=== PATIENT | male | born 1935 | race Caucasian/White ===

== ENCOUNTER 2017-11-30 16:18 | Inpatient (IN) | payer OTHER, MEDICARE ==
[~2017-11-30] VITALS: Ht 175.3 cm; Wt 76.0 kg
[~2017-11-30 16:18] MED LIST: ASPI81 PO; ATOR20TA42 PO; CLOP75 PO; ECOT81TA2 PO; FISH1000 PO; LISI10 PO; METO50 PO; [UNRECOGNIZED DRUG - OTHER]
[2017-11-30 16:20] VITALS: BP 213/99; PULSE 78; RESP 16; TEMP 98; O2SAT 98
[2017-11-30 17:22] LABS: AUTOMATED NEUTROPHIL # 4.8 TH/MM3 (1.8-7.7); BASOPHIL % 0.4 % (0.0-2.0); EOSINOPHIL # 0.3 TH/MM3 (0-0.4); EOSINOPHIL % 4.3 % (0.0-4.0); HEMATOCRIT 35.3 % (39.0-51.0); HEMOGLOBIN 12.3 GM/DL (13.0-17.0); LYMPH % 23.9 % (9.0-44.0); LYMPHOCYTE # 1.9 TH/MM3 (1.0-4.8); MEAN CELL VOLUME 90.8 FL (80.0-100.0); MEAN CORPUSCULAR HEMOGLOBIN 31.7 PG (27.0-34.0); MEAN CORPUSCULAR HGB CONC 34.9 % (32.0-36.0); MEAN PLATELET VOLUME 7.7 FL (7.0-11.0); MONO % 9.9 % (0.0-8.0); MONOCYTE # 0.8 TH/MM3 (0-0.9); NEUT % 61.5 % (16.0-70.0); PLATELET COUNT 121 TH/MM3 (150-450); RED BLOOD COUNT 3.89 MIL/MM3 (4.50-5.90); RED CELL DISTRIBUTION WIDTH 14.3 % (11.6-17.2); WHITE BLOOD COUNT 7.9 TH/MM3 (4.0-11.0)
[2017-11-30 17:38] LABS: CALCIUM 8.8 MG/DL (8.5-10.1); CREATININE 1.93 MG/DL (0.60-1.30); MAGNESIUM 2.1 MG/DL (1.5-2.5)
[2017-11-30 17:42] LABS: TROPONIN I 0.22 NG/ML (0.02-0.05)
--- NOTE | 2017-11-30 17:45 | RADRPT ---
EXAM DATE/TIME: 11/30/2017 16:55 [place] COMPARISON: No previous studies available for comparison. INDICATIONS : Chest pain. MEDICAL HISTORY : None. SURGICAL HISTORY : None. ENCOUNTER: Initial ACUITY: 1 day PAIN SCORE: 3/10 LOCATION: Bilateral chest FINDINGS: PA and lateral views of the chest demonstrate the lungs to be symmetrically aerated without evidence of mass, infiltrate or effusion. There is a granuloma in the left lower lung. The cardiomediastinal c ontours are unremarkable. The aorta is tortuous. Osseous structures are intact. CONCLUSION: No acute disease. Rocky Rodriguez MD on November 30, 2017 at 17:43 Board Certified Radiologist. This report was verified electronically.
[2017-11-30 17:59] LABS: PROTHROMBIN TIME - PATIENT 10.6 SEC (9.8-11.6)
--- NOTE | 2017-11-30 18:23 | PD ---
HPI Chief Complaint: Chest Pain Time Seen by Provider: 18:22 Travel History International Travel<30 days: No Contact w/Intl Traveler<30days: No Traveled to known affect area: No PFSH Past Medical History AAA: Yes Anxiety: No Depression: No Cancer: Yes Cardiovascular Problems: Yes (AAA 3 STENTS) High Cholesterol: Yes (NO MEDS) Chemotherapy: Yes (98 ) Cerebrovascular Accident: Yes (neuroimaging report indicates previous CVAs) Endocrine: No Genitourinary: Yes (indwelling orr to illeostomy) Hypertension: Yes Immune Disorder: No Musculoskeletal: No Neurologic: No Psychiatric: No Reproductive: No Respiratory: No Renal Failure: Yes (98) Past Surgical History Abdominal Aneurysm Repair: Yes (STENTS PLACED 10/22/10) Abdominal Surgery: Yes (HERNIA REPAIR) AICD: No Arteriovenous Shunt: No Cardiac Surgery: Yes (STENTS AORTA) Ear Surgery: No Endocrine Surgery: No Eye Surgery: No Genitourinary Surgery: Yes (BLADDER REMOVED) Insulin Pump: No Joint Replacement: No Oral Surgery: No Pacemaker: No Other Surgery: Yes (PENILE IMPLANT) Social History Alcohol Use: Yes Tobacco Use: Yes Substance Use: No Allergies-Medications (Allergen,Severity, Reaction): Coded Allergies: penicillin G (Unverified Allergy, Severe, Swelling, 06/08/17) Reported Meds & Prescriptions Reported Meds & Active Scripts Active Reported Atorvastatin (Atorvastatin Calcium) 20 Mg Tab 20 Mg PO HS Clopidogrel (Clopidogrel Bisulfate) 75 Mg Tab 75 Mg PO DAILY Data Data Last Documented VS Vital Signs Date Time Temp Pulse Resp B/P (MAP) Pulse Ox O2 Delivery O2 Flow Rate FiO2 11/30/17 18:39 65 23 194/96 (128) 98 11/30/17 16:20 98.0 Room Air Orders Orders Electrocardiogram (11/30/17 16:28) Basic Metabolic Panel (Bmp) (11/30/17 16:28) B-Type Natriuretic Peptide (11/30/17 16:28) Ckmb (Isoenzyme) Profile (11/30/17 16:28) Complete Blood Count With Diff (11/30/17 16:28) Magnesium (Mg) (11/30/17 16:28) Prothrombin Time / Inr (Pt) (11/30/17 16:28) Act Partial Throm Time (Ptt) (11/30/17 16:28) Troponin I (11/30/17 16:28) Lipase (11/30/17 16:28) Chest, Pa & Lat (11/30/17 16:28) Ecg Monitoring (11/30/17 18:22) Bilateral Bp Monitoring (11/30/17 18:22) Iv Access Insert/Monitor (11/30/17 18:22) Oximetry (11/30/17 18:22) Aspirin Chew (Aspirin Chew) (11/30/17 18:30) Labs Laboratory Tests Test 11/30/17 16:41 White Blood Count 7.9 TH/MM3 Red Blood Count 3.89 MIL/MM3 Hemoglobin 12.3 GM/DL Hematocrit 35.3 % Mean Corpuscular Volume 90.8 FL Mean Corpuscular Hemoglobin 31.7 PG Mean Corpuscular Hemoglobin Concent 34.9 % Red Cell Distribution Width 14.3 % Platelet Count 121 TH/MM3 Mean Platelet Volume 7.7 FL Neutrophils (%) (Auto) 61.5 % Lymphocytes (%) (Auto) 23.9 % Monocytes (%) (Auto) 9.9 % Eosinophils (%) (Auto) 4.3 % Basophils (%) (Auto) 0.4 % Neutrophils # (Auto) 4.8 TH/MM3 Lymphocytes # (Auto) 1.9 TH/MM3 Monocytes # (Auto) 0.8 TH/MM3 Eosinophils # (Auto) 0.3 TH/MM3 Basophils # (Auto) 0.0 TH/MM3 CBC Comment DIFF FINAL Differential Comment Prothrombin Time 10.6 SEC Prothromb Time International Ratio 1.0 RATIO Activated Partial Thromboplast Time 27.1 SEC Blood Urea Nitrogen 24 MG/DL Creatinine 1.93 MG/DL Random Glucose 94 MG/DL Calcium Level 8.8 MG/DL Magnesium Level 2.1 MG/DL Sodium Level 140 MEQ/L Potassium Level 3.7 MEQ/L Chloride Level 108 MEQ/L Carbon Dioxide Level 26.0 MEQ/L Anion Gap 6 MEQ/L Estimat Glomerular Filtration Rate 34 ML/MIN Total Creatine Kinase 52 U/L Troponin I 0.22 NG/ML B-Type Natriuretic Peptide 120 PG/ML Lipase 172 U/L Sabra Esteban Nov 30, 2017 18:23
[2017-11-30 18:30] VITALS: BP 200/93
[2017-11-30] MEDS ORDERED: ASPIRIN 81 MG CHEW TAB PO ONE (18:30)
[2017-11-30] MEDS ORDERED: CLOP75TA PO (18:38)
[2017-11-30] MEDS ORDERED: ATOR20TA15 PO (18:38)
[2017-11-30 18:39] VITALS: BP 194/96; PULSE 65; RESP 23; O2SAT 98
--- NOTE | 2017-11-30 18:55 | PD ---
Physical Exam Date Seen by Provider: Nov 30, 2017 Time Seen by Provider: 18:51 Narrative The patient is a 82-year-old male who is initially evaluated by the mid-level provider. Please refer to the initial history, physical, diagnostic evaluation, and treatment modality plan. Data Data Last Documented VS Vital Signs Date Time Temp Pulse Resp B/P (MAP) Pulse Ox O2 Delivery O2 Flow Rate FiO2 11/30/17 18:39 65 23 194/96 (128) 98 11/30/17 16:20 98.0 Room Air Orders Orders Electrocardiogram (11/30/17 16:28) Basic Metabolic Panel (Bmp) (11/30/17 16:28) B-Type Natriuretic Peptide (11/30/17 16:28) Ckmb (Isoenzyme) Profile (11/30/17 16:28) Complete Blood Count With Diff (11/30/17 16:28) Magnesium (Mg) (11/30/17 16:28) Prothrombin Time / Inr (Pt) (11/30/17 16:28) Act Partial Throm Time (Ptt) (11/30/17 16:28) Troponin I (11/30/17 16:28) Lipase (11/30/17 16:28) Chest, Pa & Lat (11/30/17 16:28) Ecg Monitoring (11/30/17 18:22) Bilateral Bp Monitoring (11/30/17 18:22) Iv Access Insert/Monitor (11/30/17 18:22) Oximetry (11/30/17 18:22) Aspirin Chew (Aspirin Chew) (11/30/17 18:30) Heparin Inj (Heparin Inj) (11/30/17 19:15) Heparin Inj (Heparin Inj) (12/01/17 01:15) Heparin Inj (Heparin Inj) (12/01/17 01:15) Heparin-D5w 25,000 U/250 Ml (Heparin-D5w (11/30/17 19:15) Act Partial Throm Time (Ptt) (11/30/17 19:09) Cbc No Diff, Includes Plts (11/30/17 19:09) Cbc No Diff, Includes Plts (12/03/17 06:00) Act Partial Throm Time (Ptt) (12/01/17 02:09) Occult Blood (Hemoccult) Stool (11/30/17 19:09) Nitroglycerin 2% Oint (Nitroglycerin 2% (11/30/17 19:15) Consult Cardiology (11/30/17 ) Labs Laboratory Tests Test 11/30/17 16:41 White Blood Count 7.9 TH/MM3 Red Blood Count 3.89 MIL/MM3 Hemoglobin 12.3 GM/DL Hematocrit 35.3 % Mean Corpuscular Volume 90.8 FL Mean Corpuscular Hemoglobin 31.7 PG Mean Corpuscular Hemoglobin Concent 34.9 % Red Cell Distribution Width 14.3 % Platelet Count 121 TH/MM3 Mean Platelet Volume 7.7 FL Neutrophils (%) (Auto) 61.5 % Lymphocytes (%) (Auto) 23.9 % Monocytes (%) (Auto) 9.9 % Eosinophils (%) (Auto) 4.3 % Basophils (%) (Auto) 0.4 % Neutrophils # (Auto) 4.8 TH/MM3 Lymphocytes # (Auto) 1.9 TH/MM3 Monocytes # (Auto) 0.8 TH/MM3 Eosinophils # (Auto) 0.3 TH/MM3 Basophils # (Auto) 0.0 TH/MM3 CBC Comment DIFF FINAL Differential Comment Prothrombin Time 10.6 SEC Prothromb Time International Ratio 1.0 RATIO Activated Partial Thromboplast Time 27.1 SEC Blood Urea Nitrogen 24 MG/DL Creatinine 1.93 MG/DL Random Glucose 94 MG/DL Calcium Level 8.8 MG/DL Magnesium Level 2.1 MG/DL Sodium Level 140 MEQ/L Potassium Level 3.7 MEQ/L Chloride Level 108 MEQ/L Carbon Dioxide Level 26.0 MEQ/L Anion Gap 6 MEQ/L Estimat Glomerular Filtration Rate 34 ML/MIN Total Creatine Kinase 52 U/L Troponin I 0.22 NG/ML B-Type Natriuretic Peptide 120 PG/ML Lipase 172 U/L [facility] Medical Record Reviewed: Yes Supervised Visit with LALITO: Yes Interpretation(s) EKG reveals normal sinus rhythm with a rate of 77. Q wave noted in lead [address] T-wave changes noted in V5 and V6. Voltage criteria for left ventricular hypertrophy. Differential Diagnosis Last Impressions Chest X-Ray 11/30/17 8094 Signed Impressions: Service Date/Time: Thursday, November 30, 2017 16:55 - CONCLUSION: No acute disease. Rocky Rodriguez MD Laboratory Tests Test 2/6/18 16:41 White Blood Count 7.9 TH/MM3 Red Blood Count 3.89 MIL/MM3 Hemoglobin 12.3 GM/DL Hematocrit 35.3 % Mean Corpuscular Volume 90.8 FL Mean Corpuscular Hemoglobin 31.7 PG Mean Corpuscular Hemoglobin Concent 34.9 % Red Cell Distribution Width 14.3 % Platelet Count 121 TH/MM3 Mean Platelet Volume 7.7 FL Neutrophils (%) (Auto) 61.5 % Lymphocytes (%) (Auto) 23.9 % Monocytes (%) (Auto) 9.9 % Eosinophils (%) (Auto) 4.3 % Basophils (%) (Auto) 0.4 % Neutrophils # (Auto) 4.8 TH/MM3 Lymphocytes # (Auto) 1.9 TH/MM3 Monocytes # (Auto) 0.8 TH/MM3 Eosinophils # (Auto) 0.3 TH/MM3 Basophils # (Auto) 0.0 TH/MM3 CBC Comment DIFF FINAL Differential Comment Prothrombin Time 10.6 SEC Prothromb Time International Ratio 1.0 RATIO Activated Partial Thromboplast Time 27.1 SEC Blood Urea Nitrogen 24 MG/DL Creatinine 1.93 MG/DL Random Glucose 94 MG/DL Calcium Level 8.8 MG/DL Magnesium Level 2.1 MG/DL Sodium Level 140 MEQ/L Potassium Level 3.7 MEQ/L Chloride Level 108 MEQ/L Carbon Dioxide Level 26.0 MEQ/L Anion Gap 6 MEQ/L Estimat Glomerular Filtration Rate 34 ML/MIN Total Creatine Kinase 52 U/L Troponin I 0.22 NG/ML B-Type Natriuretic Peptide 120 PG/ML Lipase 172 U/L Narrative Course I, Dr. Andersen, have reviewed the advance practice practitioner's documentation and am in agreement, met with the patient face to face, made the diagnosis, and the medical decision making was done by me. *My assessment and Findings: The patient is a 82-year-old male was initially evaluated by the mid-level provider. Please refer to the initial history, physical, diagnostic evaluation, treatment modality plan. The patient has a several day history of substernal dull chest pain that is nonradiating and is occasionally associated with chronic shortness of breath. He denies any nausea , vomiting, or diaphoresis. Symptoms are intermittent, nonexertional. The patient was seen and his international logistics analyst office earlier today, Dr. Mayen, who referred him to the emergency department for further evaluation. The patient does take a statin daily as well as Plavix. He does have a history of hypertension, hyperlipidemia, CAD with previous stent placement, and tobacco use. He denies any history of diabetes. Troponin was elevated 0.22, creatinine is elevated 1.93. The chest pain had dissipated by the time he was evaluated in [facility]. A call was placed the on-call international logistics analyst for Dr. Mayen, Dr. Becerril. We will discuss with Dr. Becerril in regards to heparin drip , heparin drip, and admission to cardiac telemetry with a consult to cardiology. I discussed the patient with Dr. Becerril at 7:10 PM who recommends heparin drip, patient was also placed on Nitropaste. A consult was placed to Dr. Mayen. The patient will be admitted. Physician Communication Physician Communication [facility] were paged for admission. Diagnosis Primary Impression: Non-ST elevation PR (NSTEMI) Additional Impression: CKD (chronic kidney disease) stage 3, GFR 30-59 ml/min Admitting Information Admitting Physician Requests: Admit Condition: Stable Saeid Andersen MD Nov 30, 2017 18:55
--- NOTE | 2017-11-30 18:57 | PD ---
HPI Chief Complaint: Chest Pain Time Seen by Provider: 18:22 Travel History International Travel<30 days: No Contact w/Intl Traveler<30days: No Traveled to known affect area: No History of Present Illness HPI 82-year-old male with PMH of HTN, CAD status post stenting, CKD and AAA presents to the ED for evaluation of 1 week history of intermittent substernal chest pain. Onset at rest. Described as pressure, maximally 6/10, 3/10 minimally. Lasting variable amounts of time, resolving spontaneously. No radiation. Patient denies associated shortness of breath, nausea, vomiting, diaphoresis, palpitations. Patient states that he had an similar episode while in his comparative sociology professor, Dr. Mayen's, office today. He was sent to the ED. States that he had episode in the waiting room. Currently pain-free. Patient is on Plavix. He takes a baby aspirin daily. He is a 50+ year smoker. PFSH Past Medical History AAA: Yes Anxiety: No Depression: No Cancer: Yes Cardiovascular Problems: Yes (AAA 3 STENTS) High Cholesterol: Yes (NO MEDS) Chemotherapy: Yes (98 ) Cerebrovascular Accident: Yes (neuroimaging report indicates previous CVAs) Endocrine: No Genitourinary: Yes (indwelling orr to illeostomy) Hypertension: Yes Immune Disorder: No Musculoskeletal: No Neurologic: No Psychiatric: No Reproductive: No Respiratory: No Renal Failure: Yes (98) Past Surgical History Abdominal Aneurysm Repair: Yes (STENTS PLACED 10/22/10) Abdominal Surgery: Yes (HERNIA REPAIR) AICD: No Arteriovenous Shunt: No Cardiac Surgery: Yes (STENTS AORTA) Ear Surgery: No Endocrine Surgery: No Eye Surgery: No Genitourinary Surgery: Yes (BLADDER REMOVED) Insulin Pump: No Joint Replacement: No Oral Surgery: No Pacemaker: No Other Surgery: Yes (PENILE IMPLANT) Social History Alcohol Use: Yes Tobacco Use: Yes Substance Use: No Allergies-Medications (Allergen,Severity, Reaction): Coded Allergies: penicillin G (Unverified Allergy, Severe, Swelling, 06/08/17) Reported Meds & Prescriptions Reported Meds & Active Scripts Active Reported Atorvastatin (Atorvastatin Calcium) 20 Mg Tab 20 Mg PO HS Clopidogrel (Clopidogrel Bisulfate) 75 Mg Tab 75 Mg PO DAILY Review of Systems Except as stated in HPI: all other systems reviewed are Neg Physical Exam Narrative GENERAL: Thin, well-developed white male in no acute distress. SKIN: Focused skin assessment warm/dry. HEAD: Normocephalic. EYES: No scleral icterus. No injection or drainage. NECK: Supple, trachea midline. No JVD or lymphadenopathy. CARDIOVASCULAR: Regular rate and rhythm without murmurs, gallops, or rubs. CHEST: Nontender throughout without deformity or crepitus. No retractions. RESPIRATORY: Breath sounds clear and equal bilaterally. No accessory muscle use. GASTROINTESTINAL: Abdomen soft, non-tender, nondistended. Active bowel sounds. MUSCULOSKELETAL: No cyanosis, or edema. BACK: Nontender without obvious deformity. No CVA tenderness. Data Data Last Documented VS Vital Signs Date Time Temp Pulse Resp B/P (MAP) Pulse Ox O2 Delivery O2 Flow Rate FiO2 11/30/17 18:39 65 23 194/96 (128) 98 11/30/17 16:20 98.0 Room Air Orders Orders Electrocardiogram (11/30/17 16:28) Basic Metabolic Panel (Bmp) (11/30/17 16:28) B-Type Natriuretic Peptide (11/30/17 16:28) Ckmb (Isoenzyme) Profile (11/30/17 16:28) Complete Blood Count With Diff (11/30/17 16:28) Magnesium (Mg) (11/30/17 16:28) Prothrombin Time / Inr (Pt) (11/30/17 16:28) Act Partial Throm Time (Ptt) (11/30/17 16:28) Troponin I (11/30/17 16:28) Lipase (11/30/17 16:28) Chest, Pa & Lat (11/30/17 16:28) Ecg Monitoring (11/30/17 18:22) Bilateral Bp Monitoring (11/30/17 18:22) Iv Access Insert/Monitor (11/30/17 18:22) Oximetry (11/30/17 18:22) Aspirin Chew (Aspirin Chew) (11/30/17 18:30) Heparin Inj (Heparin Inj) (11/30/17 19:15) Heparin Inj (Heparin Inj) (12/01/17 01:15) Heparin Inj (Heparin Inj) (12/01/17 01:15) Heparin-D5w 25,000 U/250 Ml (Heparin-D5w (11/30/17 19:15) Act Partial Throm Time (Ptt) (11/30/17 19:09) Cbc No Diff, Includes Plts (11/30/17 19:09) Cbc No Diff, Includes Plts (12/03/17 06:00) Act Partial Throm Time (Ptt) (12/01/17 02:09) Occult Blood (Hemoccult) Stool (11/30/17 19:09) Nitroglycerin 2% Oint (Nitroglycerin 2% (11/30/17 19:15) Consult Cardiology (11/30/17 ) Admit Order (Ed Use Only) (11/30/17 19:28) Labs Laboratory Tests Test 11/30/17 16:41 White Blood Count 7.9 TH/MM3 Red Blood Count 3.89 MIL/MM3 Hemoglobin 12.3 GM/DL Hematocrit 35.3 % Mean Corpuscular Volume 90.8 FL Mean Corpuscular Hemoglobin 31.7 PG Mean Corpuscular Hemoglobin Concent 34.9 % Red Cell Distribution Width 14.3 % Platelet Count 121 TH/MM3 Mean Platelet Volume 7.7 FL Neutrophils (%) (Auto) 61.5 % Lymphocytes (%) (Auto) 23.9 % Monocytes (%) (Auto) 9.9 % Eosinophils (%) (Auto) 4.3 % Basophils (%) (Auto) 0.4 % Neutrophils # (Auto) 4.8 TH/MM3 Lymphocytes # (Auto) 1.9 TH/MM3 Monocytes # (Auto) 0.8 TH/MM3 Eosinophils # (Auto) 0.3 TH/MM3 Basophils # (Auto) 0.0 TH/MM3 CBC Comment DIFF FINAL Differential Comment Prothrombin Time 10.6 SEC Prothromb Time International Ratio 1.0 RATIO Activated Partial Thromboplast Time 27.1 SEC Blood Urea Nitrogen 24 MG/DL Creatinine 1.93 MG/DL Random Glucose 94 MG/DL Calcium Level 8.8 MG/DL Magnesium Level 2.1 MG/DL Sodium Level 140 MEQ/L Potassium Level 3.7 MEQ/L Chloride Level 108 MEQ/L Carbon Dioxide Level 26.0 MEQ/L Anion Gap 6 MEQ/L Estimat Glomerular Filtration Rate 34 ML/MIN Total Creatine Kinase 52 U/L Troponin I 0.22 NG/ML B-Type Natriuretic Peptide 120 PG/ML Lipase 172 U/L [facility] Medical Decision Making Medical Screen Exam Complete: Yes Emergency Medical Condition: Yes Differential Diagnosis NSTEMI versus unstable angina versus chest pain versus other Narrative Course 82-year-old male with PMH of HTN, CAD status post stenting, CKD and AAA presents to the ED for evaluation of 1 week history of intermittent substernal chest pain. Onset at rest. Described as pressure, maximally 6/10, 3/10 minimally. Currently pain-free. Patient is on Plavix. He takes a baby aspirin daily. He is a 50+ year smoker. BP 213/99 on presentation. On exam the patient is in no distress. Chest CTAB. Abdomen soft and nontender. No lower extremity edema. EKG: Rate 77, sinus rhythm. [place] interval 187, QRS 97, QTC 400 ms. LVH, Q waves in AVF, ST depression in V5 V6. Similar to previous EKG. CXR: No acute disease per radiology read. Troponin: 0.22. BNP: 120 CBC: WBC 7.9, hemoglobin 12.3. Hematocrit 35.3. Platelets 121. INR 1.0. CMP: BUN 24, creatinine 1.93. GFR 34. Patient was administered aspirin by mouth. I discussed admission with the patient who is agreeable. Dr. Andersen spoke with Dr. Becerril who recommends Nitropaste, heparin drip and admission to the [facility]. Consult place with cardiology. I spoke with Dr. Sosa who agrees to accept the patient to the medicine service. Please see medicine and cardiology notes for disposition. Sabra Esteban Nov 30, 2017 18:57
[2017-11-30] MEDS ORDERED: HEPARIN-D5W 25,000 U/250 ML 250 ML IV PRN (19:15)
[2017-11-30] MEDS ORDERED: NITROGLYCERIN 2% OINT 1 GM PACKET TOPICAL ONE (19:15)
[2017-11-30] MEDS ORDERED: HEPARIN SODIUM - IV 10,000 UNITS/10 ML VIAL IV ONE (19:15)
[2017-11-30 19:42] VITALS: BP 183/99; PULSE 68; RESP 16; O2SAT 99
[2017-11-30] MEDS ORDERED: BISACODYL 10 MG SUPP RECTAL PRN (20:30)
[2017-11-30] MEDS ORDERED: ONDANSETRON HCL 4 MG/2 ML VIAL IVP PRN (20:30)
[2017-11-30] MEDS ORDERED: NALOXONE HCL 0.4 MG/ML AMP IV PUSH PRN (20:30)
[2017-11-30] MEDS ORDERED: MAGNESIUM HYDROXIDE SUSP 30 ML CUP PO PRN (20:30)
[2017-11-30] MEDS ORDERED: ACETAMINOPHEN 325 MG TAB PO PRN ×2 (20:30)
[2017-11-30] MEDS ORDERED: ACETAMINOPHEN/HYDROcodone 325 MG/5 MG TAB PO PRN (20:30)
[2017-11-30] MEDS ORDERED: MORPHINE SULFATE 2 MG/ML INJ IV PUSH PRN (20:30)
[2017-11-30] MEDS ORDERED: SODIUM CHLORIDE 0.9% FLUSH 10 ML FLUSH IV FLUSH PRN (20:30)
[2017-11-30] MEDS ORDERED: SENNOSIDES 8.6 MG TAB PO PRN (20:30)
[2017-11-30] MEDS ORDERED: NITROGLYCERIN 0.4 MG SL 25 TABS/BTL SL PRN (21:45)
[2017-11-30] MEDS ORDERED: hydrALAZINE HCL 20 MG/ML VIAL IV PUSH PRN (21:45)
[2017-11-30 22:00] VITALS: BP 191/98; PULSE 70; PULSE 72; RESP 16; TEMP 98; O2SAT 98
[2017-11-30] MEDS: SODIUM CHLORIDE 0.9% FLUSH 10 ML FLUSH IV FLUSH SCH (22:41)
[2017-11-30] MEDS: ATORVASTATIN 20 MG TAB PO SCH (22:41)
--- NOTE | 2017-11-30 23:18 | HHI.HP ---
[facility] Unknown Admission Diagnosis NSTEMI Diagnoses: Travel History International Travel<30 Days: No Contact w/Intl Traveler <30 Da: No Traveled to Known Affected Are: No History of Present Illness 82-year-old male with a past medical history significant for coronary artery disease and hyperlipidemia presents to the emergency department complaining of chest pain and shortness of breath. The patient reports that he's been short of breath for approximately 2 weeks. He also states he has a chest pain/ pressure that started last week and has been intermittent. He denies any lower extremity edema. Denies fever/chills. He is status post stent placement approximately 4 years ago. Review of Systems Except as stated in HPI: all other systems reviewed are Neg Past Family Social History Past Medical History Hyperlipidemia Coronary artery disease Past Surgical History Cardiac catheterization with stent placement approximately 4 years ago Reported Medications Reported Meds & Active Scripts Active Reported Atorvastatin (Atorvastatin Calcium) 20 Mg Tab 20 Mg PO HS Clopidogrel (Clopidogrel Bisulfate) 75 Mg Tab 75 Mg PO DAILY Allergies: Coded Allergies: penicillin G (Unverified Allergy, Severe, Swelling, 06/08/17) Family History Patient does not know Social History Smokes proximally one pack per day. Denies alcohol, illicit drugs. Physical Exam Vital Signs Vital Signs Date Time Temp Pulse Resp B/P (MAP) Pulse Ox O2 Delivery O2 Flow Rate FiO2 11/30/17 21:27 11/30/17 19:42 68 16 99 Room Air 11/30/17 19:42 68 16 183/99 (127) 99 Room Air 11/30/17 18:39 65 23 194/96 (128) 98 11/30/17 18:30 200/93 (128) 11/30/17 16:20 98.0 78 16 213/99 (137) 98 Room Air Physical Exam GENERAL: male lying in bed SKIN: No rashes, ecchymoses or lesions. Cool and dry. HEAD: Atraumatic. Normocephalic. No temporal or scalp tenderness. EYES: Pupils equal round and reactive. Extraocular motions intact. No scleral icterus. No injection or drainage. ENT: Nose without bleeding, purulent drainage or septal hematoma. Throat without erythema, tonsillar hypertrophy or exudate. Uvula midline. Airway patent. NECK: Trachea midline. No JVD or lymphadenopathy. Supple, nontender, no meningeal signs. CARDIOVASCULAR: Regular rate and rhythm without murmurs, gallops, or rubs. RESPIRATORY: Clear to auscultation. Breath sounds equal bilaterally. No wheezes , rales, or rhonchi. GASTROINTESTINAL: Abdomen soft, non-tender, nondistended. No hepato-splenomegaly , or palpable masses. No guarding. MUSCULOSKELETAL: Extremities without clubbing, cyanosis, or edema. No joint tenderness, effusion, or edema noted. No calf tenderness. NEUROLOGICAL: Awake and alert. Cranial nerves II through XII intact. Motor and sensory grossly within normal limits. Normal speech. Laboratory Laboratory Tests Test 11/30/17 16:41 White Blood Count 7.9 Red Blood Count 3.89 Hemoglobin 12.3 Hematocrit 35.3 Mean Corpuscular Volume 90.8 Mean Corpuscular Hemoglobin 31.7 Mean Corpuscular Hemoglobin Concent 34.9 Red Cell Distribution Width 14.3 Platelet Count 121 Mean Platelet Volume 7.7 Neutrophils (%) (Auto) 61.5 Lymphocytes (%) (Auto) 23.9 Monocytes (%) (Auto) 9.9 Eosinophils (%) (Auto) 4.3 Basophils (%) (Auto) 0.4 Neutrophils # (Auto) 4.8 Lymphocytes # (Auto) 1.9 Monocytes # (Auto) 0.8 Eosinophils # (Auto) 0.3 Basophils # (Auto) 0.0 CBC Comment DIFF FINAL Differential Comment Prothrombin Time 10.6 Prothromb Time International Ratio 1.0 Activated Partial Thromboplast Time 27.1 Blood Urea Nitrogen 24 Creatinine 1.93 Random Glucose 94 Calcium Level 8.8 Magnesium Level 2.1 Sodium Level 140 Potassium Level 3.7 Chloride Level 108 Carbon Dioxide Level 26.0 Anion Gap 6 Estimat Glomerular Filtration Rate 34 Total Creatine Kinase 52 Troponin I 0.22 B-Type Natriuretic Peptide 120 Lipase 172 Result Diagram: 11/30/17 1641 11/30/17 1641 Caprini VTE Risk Assessment Caprini VTE Risk Assessment: Mod/High Risk (score >= 2) Caprini Risk Assessment Model Point Value = 1 Point Value = 2 Point Value = 3 Point Value = 5 Age 41-60 Minor surgery BMI > 25 kg/m2 Swollen legs Varicose veins or History of unexplained or recurrent spontaneous Oral contraceptives or hormone replacement Sepsis (< 1 month) Serious lung disease, including pneumonia (< 1 month) Abnormal pulmonary function Acute myocardial infarction Congestive heart failure (< 1 month) History of inflammatory bowel disease Medical patient at bed rest Age 61-74 Arthroscopic surgery Major open surgery (> 45 min) Laparoscopic surgery (> 45 min) Malignancy Confined to bed (> 72 hours) Immobilizing plaster cast Central venous access Age >= 75 History of VTE Family history of VTE Factor V Leiden Prothrombin [id number] Lupus anticoagulant Anticardiolipin antibodies Elevated serum homocysteine Heparin-induced thrombocytopenia Other congenital or acquired thrombophilia Stroke (< 1 month) Elective arthroplasty Hip, pelvis, or leg fracture Acute spinal cord injury (< 1 month) Prophylaxis Regimen Total Risk Factor Score Risk Level Prophylaxis Regimen 0-1 Low Early ambulation 2 Moderate Order ONE of the following: *Sequential Compression Device (SCD) *Heparin 5000 units SQ BID 3-4 Higher Order ONE of the following medications: *Heparin 5000 units SQ TID *Enoxaparin/Lovenox 40 mg SQ daily (WT < 150 kg, CrCl > 30 mL/min) *Enoxaparin/Lovenox 30 mg SQ daily (WT < 150 kg, CrCl > 10-29 mL/min) *Enoxaparin/Lovenox 30 mg SQ BID (WT < 150 kg, CrCl > 30 mL/min) AND/OR *Sequential Compression Device (SCD) 5 or more Highest Order ONE of the following medications: *Heparin 5000 units SQ TID (Preferred with Epidurals) *Enoxaparin/Lovenox 40 mg SQ daily (WT < 150 kg, CrCl > 30 mL/min) *Enoxaparin/Lovenox 30 mg SQ daily (WT < 150 kg, CrCl > 10-29 mL/min) *Enoxaparin/Lovenox 30 mg SQ BID (WT < 150 kg, CrCl > 30 mL/min) AND *Sequential Compression Device (SCD) Assessment and Plan Assessment and Plan Assessment/plan: 1. NSTEMI Patient with elevated troponin to 0.22 EKG significant for NSR with LVH, no ST segment elevations or depressions, personally reviewed Heparin drip Nitroglycerin Morphine Status post aspirin ACS rule out pending; serial troponin/EKGs Cardiology consulted, appreciate recommendations 2. CAD Status post stent placement Continue Plavix 3. Hyperlipidemia Continue home statin 4. SP Creatinine 1.93, baseline from 2013 - 1.39 Likely chronic component Monitor renal function FEN Nothing by mouth Electrolytes: Monitor and replete when necessary Heparin drip Physician Certification 2 Midnight Certification Type: Admission for Inpatient Services Order for Inpatient Services The services are ordered in accordance with Medicare regulations or non- Medicare payer requirements, as applicable. In the case of services not specified as inpatient-only, they are appropriately provided as inpatient services in accordance with the 2-midnight benchmark. Estimated LOS (days): 2 2 days is the estimated time the patient will need to remain in the hospital, assuming treatment plan goals are met and no additional complications. Post-Hospital Plan: Not yet determined Loretta Sosa MD Nov 30, 2017 23:18
[2017-11-30 23:25] VITALS: BP 140/68; PULSE 70; PULSE 71; RESP 16; TEMP 98; O2SAT 98
[2017-12-01] VITALS (25 sets, daily range): BP systolic 138–158; BP diastolic 71–85; PULSE 63–86; RESP 15–18; TEMP 98.1–98.7; O2SAT 94–100
[2017-12-01] MEDS ORDERED: HEPARIN SODIUM - IV 10,000 UNITS/10 ML VIAL IV PRN ×2 (01:15)
[2017-12-01 02:05] LABS: TROPONIN I 0.22 NG/ML (0.02-0.05)
[2017-12-01 04:48] LABS: AUTOMATED NEUTROPHIL # 3.3 TH/MM3 (1.8-7.7); BASOPHIL % 0.6 % (0.0-2.0); EOSINOPHIL # 0.4 TH/MM3 (0-0.4); EOSINOPHIL % 7.1 % (0.0-4.0); HEMATOCRIT 31.5 % (39.0-51.0); HEMOGLOBIN 11.1 GM/DL (13.0-17.0); LYMPHOCYTE # 1.5 TH/MM3 (1.0-4.8); MEAN CELL VOLUME 90.1 FL (80.0-100.0); MEAN CORPUSCULAR HEMOGLOBIN 31.8 PG (27.0-34.0); MEAN CORPUSCULAR HGB CONC 35.3 % (32.0-36.0); MEAN PLATELET VOLUME 7.9 FL (7.0-11.0); MONO % 9.2 % (0.0-8.0); MONOCYTE # 0.5 TH/MM3 (0-0.9); NEUT % 57.1 % (16.0-70.0); PLATELET COUNT 105 TH/MM3 (150-450); RED BLOOD COUNT 3.49 MIL/MM3 (4.50-5.90); RED CELL DISTRIBUTION WIDTH 13.9 % (11.6-17.2); WHITE BLOOD COUNT 5.8 TH/MM3 (4.0-11.0)
[2017-12-01 05:09] LABS: ALBUMIN 3.2 GM/DL (3.4-5.0); AST (GOT) 13 U/L (15-37); BICARBONATE 23.7 MEQ/L (21.0-32.0); BLOOD UREA NITROGEN 23 MG/DL (7-18); CALCIUM 8.9 MG/DL (8.5-10.1); CHLORIDE 109 MEQ/L (98-107); CREATININE 1.68 MG/DL (0.60-1.30); GLOMERULAR FILTRATION RATE 39 ML/MIN (>89); GLUCOSE,RANDOM 100 MG/DL (74-106); SODIUM (NA) 141 MEQ/L (136-145)
[2017-12-01 05:11] LABS: ALT (GPT) 15 U/L (12-78)
[2017-12-01 05:14] LABS: ALKALINE PHOSPHATASE 94 U/L (45-117); TOTAL BILIRUBIN ADULT 0.3 MG/DL (0.2-1.0); TROPONIN I 0.22 NG/ML (0.02-0.05)
[2017-12-01] MEDS: SODIUM CHLORIDE 0.9% FLUSH 10 ML FLUSH IV FLUSH SCH ×2 (09:00→21:05)
[2017-12-01] MEDS: CLOPIDOGREL 75 MG TAB PO SCH (10:05)
--- NOTE | 2017-12-01 10:57 | EKG ---
Date Performed: 12/01/2017 Time Performed: 05:30:18 PTAGE: 82 years EKG: Sinus rhythm Inferior infarct - age undetermined Possible anterior infarct - age undetermined Abnormal ECG PREVIOUS TRACING : 11/30/2017 23.22 DOCTOR: Curtis Leal Interpretating Date/Time 12/01/2017 10:53:57
--- NOTE | 2017-12-01 11:05 | EKG ---
Date Performed: 11/30/2017 Time Performed: 23:22:20 PTAGE: 82 years EKG: Sinus rhythm Inferior infarct - age undetermined Possible anteroseptal infarct - age undetermined Abnormal ECG PREVIOUS TRACING : 11/30/2017 16.37 DOCTOR: Curtis Leal Interpretating Date/Time 12/01/2017 11:00:10
--- NOTE | 2017-12-01 12:57 | EKG ---
Date Performed: 11/30/2017 Time Performed: 16:37:20 PTAGE: 82 years EKG: Sinus rhythm LEFT VENTRICULAR HYPERTROPHY AND ST-T CHANGE INFERIOR MYOCARDIAL INFARCTION ABNORMAL ECG PREVIOUS TRACING : 08/26/2013 12.06 DOCTOR: Curtis Leal Interpretating Date/Time 12/01/2017 12:50:39
--- NOTE | 2017-12-01 14:36 | MB ---
cc: YAS STEPHENSON DO DATE OF CONSULTATION 12/01/2017 REASON FOR CONSULTATION NSTEMI. HISTORY OF PRESENT ILLNESS Tony Lopes is a pleasant 82-year-old male who presented to [facility] Emergency Room on November 30, 2017 due to chest pain and shortness of breath. He states that this has been bothering him for about 2 weeks. The chest pain has been somewhat pressure-like in the center of his chest and has been on and off and somewhat intermittent. He denies other symptoms. In seeing him this morning he is currently without chest pain or shortness of breath. PAST MEDICAL HISTORY 1. Hyperlipidemia. 2. Coronary artery disease. PAST SURGICAL HISTORY Cardiac catheterization with stents placed approximately 4 years ago (unknown coronary anatomy, procedure done at [facility] [place]). ALLERGIES PENICILLIN. MEDICATIONS 1. Plavix 75 mg daily. 2. Lipitor 20 mg every night. FAMILY HISTORY The patient is unsure of his family history. SOCIAL HISTORY The patient smokes approximately one pack per day, denies alcohol or drug abuse. REVIEW OF SYSTEMS 14-systems were reviewed including osteopathic. Pertinent positives and negatives as above, otherwise negative. PHYSICAL EXAMINATION VITAL SIGNS: Temperature 98.2, heart rate 78, blood pressure 142/82, respirations 18, pulse ox 98% on room air. GENERAL: In general the patient appears well, in no acute distress, awake, alert and oriented x3. Extraocular muscles intact. Mucous membranes moist. NECK: Supple. No JVD at 45 degrees. No carotid bruits heard bilaterally. Carotid upstroke is brisk in nature. HEART: Regular rate and rhythm. Positive first and second heart sounds with no known murmurs, gallops or rubs. LUNGS: Clear to auscultation bilaterally. No wheezes, rales or rhonchi. ABDOMEN: Soft, nontender, nondistended. No organomegaly noted. EXTREMITIES: No clubbing, cyanosis or edema. Femoral and distal pulses intact bilaterally. NEUROLOGIC: No focal deficits. SKIN: Warm, dry and intact. MUSCULOSKELETAL: Osteopathically no kyphoscoliosis, lordosis or paraspinal tender points. LABORATORY Hemoglobin 11.1, hematocrit 31.5, platelets 105. Potassium 3.6, BUN 23, creatinine 1.68. Troponin stable at 0.22. ELECTROCARDIOGRAM Electrocardiogram (December 01, 2017 at 0530): Sinus rhythm, inferior infarct age undetermined, poor R-wave progression, possible age undetermined anterior infarct. IMPRESSION 1. NSTEMI. 2. Chest pain possibly due to coronary insufficiency. 3. History of coronary artery disease. 4. History of hyperlipidemia. 5. Acute kidney injury. RECOMMENDATIONS 1. Mr. Lopes presented with chest pain and elevated troponin. I discussed with him the consideration of an ischemic evaluation, most likely cardiac catheterization. He states at this time he would not want any procedures. 2. I did discuss with him the consideration of a stress test but if positive would most likely need a catheterization and once again he said that he lived for 82 years and does not want any further procedures. 3. Will attempt to treat him medically as best as possible continuing him on his Lipitor and Plavix while adding aspirin and Imdur therapy. 4. He states that he wants to go home today even though I asked that he possibly stay until tomorrow as he did have elevated troponins but he is pretty set on going home today. Will see this afternoon, if doing better and planning on only treating him medically it is possible that he may be able to go home with the understanding that either way he has some risk involved. Thank you for allowing me to see Tony Lopes. If there are any questions please do not hesitate to call. Yas Stephenson DO VGP/BT /1:02 PM /2:18 PM
--- NOTE | 2017-12-01 19:02 | HHI.PR ---
Subjective Remarks Patient denies any further chest pain or shortness breath. Elevated troponins are suggestive of myocardial infarction. The patient has declined cardiac catheter and stress testing. He did have some apparently associated acute kidney injury. Recommended further cardiac monitoring and monitoring of blood work tomorrow morning. Objective Vital Signs Date Time Temp Pulse Resp B/P (MAP) Pulse Ox O2 Delivery O2 Flow Rate FiO2 12/01/17 18:00 86 12/01/17 17:00 82 12/01/17 16:00 80 12/01/17 16:00 98.3 78 18 138/78 (98) 98 12/01/17 15:00 78 12/01/17 14:00 82 12/01/17 13:00 77 12/01/17 12:00 84 12/01/17 12:00 98.2 78 18 142/82 (102) 98 12/01/17 11:00 80 12/01/17 10:00 77 12/01/17 09:00 73 12/01/17 08:00 98.1 78 18 154/85 (108) 98 12/01/17 08:00 75 12/01/17 07:00 68 12/01/17 06:00 65 12/01/17 05:00 66 12/01/17 04:05 67 12/01/17 03:25 98.2 69 15 138/77 (97) 98 12/01/17 03:00 63 12/01/17 02:00 64 12/01/17 01:00 74 12/01/17 00:00 74 11/30/17 23:25 98.0 71 16 140/68 (92) 98 11/30/17 23:25 70 11/30/17 22:00 70 11/30/17 22:00 98.0 72 16 191/98 (129) 98 11/30/17 21:27 11/30/17 19:42 68 16 99 Room Air 11/30/17 19:42 68 16 183/99 (127) 99 Room Air I/O 11/30/17 11/30/17 11/30/17 12/01/17 12/01/17 12/01/17 07:00 15:00 23:00 07:00 15:00 23:00 Intake Total 100 ml 30 ml 780 ml Output Total 300 ml 650 ml Balance -200 ml 30 ml 130 ml Intake Oral 100 ml 750 ml IV Total 30 ml 30 ml Output Urine Total 300 ml 650 ml # Bowel Movements 0 1 Result Diagram: 12/01/1742612/01/17426 Objective Remarks GENERAL: NAD, A&Ox3 HEAD: Normocephalic. NECK: Supple, trachea midline. No lymphadenopathy. EYES: No scleral icterus. No injection or drainage. CARDIOVASCULAR: Regular rate and rhythm without murmurs, gallops, or rubs. RESPIRATORY: Breath sounds equal bilaterally. No accessory muscle use. GASTROINTESTINAL: Abdomen soft, non-tender, nondistended. MUSCULOSKELETAL: No cyanosis, or edema. SKIN: Warm and dry. NEURO: No focal neurological deficitis. A/P Problem List: (1) Non-ST elevation AR (NSTEMI) ICD Code: I21.4 - Non-ST elevation (NSTEMI) myocardial infarction Status: Acute Assessment and Plan 82-year-old male admitted secondary to NSTEMI NSTEMI Coronary artery disease Cardiology has suffered a heart catheter or stress testing and patient declines both options Continue to monitor on telemetry Continue to monitor for recurrence of symptoms Nitroglycerin as needed Continue Plavix Acute kidney injury Follow renal function Hyperlipidemia Continue statin DVT prophylaxis Heparin Discharge planning Discharge will be considered tomorrow if no evidence of arrhythmias and renal function continues to improve. Eligio Carpenter MD Dec 01, 2017 19:02
[2017-12-01] MEDS: ATORVASTATIN 20 MG TAB PO SCH (21:05)
[2017-12-02] VITALS (10 sets, daily range): BP systolic 135–138; BP diastolic 69–78; PULSE 68–78; RESP 17–18; TEMP 98.1–98.5; O2SAT 94–98
[2017-12-02 04:32] LABS: ALBUMIN 3.2 GM/DL (3.4-5.0); AST (GOT) 16 U/L (15-37); BICARBONATE 24.3 MEQ/L (21.0-32.0); BLOOD UREA NITROGEN 24 MG/DL (7-18); CALCIUM 9.1 MG/DL (8.5-10.1); CHLORIDE 110 MEQ/L (98-107); CREATININE 1.91 MG/DL (0.60-1.30); GLOMERULAR FILTRATION RATE 34 ML/MIN (>89); GLUCOSE,RANDOM 98 MG/DL (74-106); SODIUM (NA) 141 MEQ/L (136-145)
[2017-12-02 04:34] LABS: ALT (GPT) 14 U/L (12-78)
[2017-12-02 04:35] LABS: ALKALINE PHOSPHATASE 97 U/L (45-117); TOTAL BILIRUBIN ADULT 0.4 MG/DL (0.2-1.0); TOTAL PROTEIN 7.2 GM/DL (6.4-8.2)
[2017-12-02] MEDS ORDERED: ISOSORBIDE MONONITRATE 30 MG TAB PO SCH (07:00)
[2017-12-02] MEDS ORDERED: ASPI81 CHEW (08:48)
[2017-12-02] MEDS ORDERED: CARV3.125 PO (08:48)
[2017-12-02] MEDS ORDERED: ISOS30TA3 PO (08:48)
[2017-12-02] MEDS ORDERED: NITR0.4S SL (08:48)
[2017-12-02] MEDS ORDERED: ASPIRIN 81 MG CHEW TAB CHEW SCH (09:00)
[2017-12-02] MEDS: SODIUM CHLORIDE 0.9% FLUSH 10 ML FLUSH IV FLUSH SCH (09:00)
[2017-12-02] MEDS: CLOPIDOGREL 75 MG TAB PO SCH (09:07)
--- NOTE | 2017-12-02 09:55 | HHI.DS ---
Discharge Summary Admission Date Nov 30, 2017 at 19:30 Discharge Date: Dec 02, 2017 Admitting Diagnosis NSTEMI (1) Non-ST elevation ME (NSTEMI) ICD Code: I21.4 - Non-ST elevation (NSTEMI) myocardial infarction Status: Acute Procedures none Brief History - From Admission 82-year-old male with a past medical history significant for coronary artery disease and hyperlipidemia presents to the emergency department complaining of chest pain and shortness of breath. The patient reports that he's been short of breath for approximately 2 weeks. He also states he has a chest pain/ pressure that started last week and has been intermittent. He denies any lower extremity edema. Denies fever/chills. He is status post stent placement approximately 4 years ago. CBC/BMP: 12/01/17 0427 12/02/17 0340 Significant Findings Laboratory Tests Test 11/30/17 16:41 12/01/17 01:20 12/01/17 01:45 12/01/17 04:27 Red Blood Count 3.89 MIL/MM3 (4.50-5.90) 3.49 MIL/MM3 (4.50-5.90) Hemoglobin 12.3 GM/DL (13.0-17.0) 11.1 GM/DL (13.0-17.0) Hematocrit 35.3 % (39.0-51.0) 31.5 % (39.0-51.0) Platelet Count 121 TH/MM3 (150-450) 105 TH/MM3 (150-450) Monocytes (%) (Auto) 9.9 % (0.0-8.0) 9.2 % (0.0-8.0) Eosinophils (%) (Auto) 4.3 % (0.0-4.0) 7.1 % (0.0-4.0) Blood Urea Nitrogen 24 MG/DL (7-18) 23 MG/DL (7-18) Creatinine 1.93 MG/DL (0.60-1.30) 1.68 MG/DL (0.60-1.30) Chloride Level 108 MEQ/L (98-107) 109 MEQ/L (98-107) Estimat Glomerular Filtration Rate 34 ML/MIN (>89) 39 ML/MIN (>89) Troponin I 0.22 NG/ML (0.02-0.05) 0.22 NG/ML (0.02-0.05) 0.22 NG/ML (0.02-0.05) B-Type Natriuretic Peptide 120 PG/ML (0-100) Activated Partial Thromboplast Time 47.4 SEC (24.3-30.1) Albumin 3.2 GM/DL (3.4-5.0) Aspartate Amino Transf (AST/SGOT) 13 U/L (15-37) Test 12/01/17 11:28 12/02/17 03:40 Activated Partial Thromboplast Time 39.9 SEC (24.3-30.1) Blood Urea Nitrogen 24 MG/DL (7-18) Creatinine 1.91 MG/DL (0.60-1.30) Albumin 3.2 GM/DL (3.4-5.0) Chloride Level 110 MEQ/L (98-107) Estimat Glomerular Filtration Rate 34 ML/MIN (>89) Hospital Course Mr. Lopes is an 82 year old male. He was admitted secondary to NSTEMI. Heart cath and Stress Testing were offered as investigative and treatment measures; the patient declined these options. He has had no arrhythmias. Symptoms are fully resolved. 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 He wishes to discharge and is medically stable for discharge home today. Pt Condition on Discharge: Stable Discharge Disposition: Discharge Home Discharge Time: <= 30 minutes Discharge Instructions DIET: Follow Instructions for: As Tolerated, No Restrictions Activities you can perform: Regular-No Restrictions Follow up Referrals: Cardiology - 2 Weeks PCP Follow-up - 2 Weeks New Medications: Carvedilol (Coreg) 3.125 Mg Tab 3.125 MG PO BID for Cardiac Disease, #60 TAB 0 Refills Aspirin (Tgt Aspirin) 81 Mg Chw 81 MG CHEW DAILY for Blood Clot Prevention, #30 EA Isosorbide Mononitrate ER (Isosorbide Mononitrate ER) 30 Mg Osmar 30 MG PO DAILY for Chest Pain, #30 TAB Nitroglycerin SL (Nitrostat SL) 0.4 Mg Subl 0.4 MG SL Q5M PRN for CHEST PAIN, #60 TAB Continued Medications: Atorvastatin (Atorvastatin) 20 Mg Tab 20 MG PO HS for Cholesterol Management, #30 TAB 0 Refills Clopidogrel (Clopidogrel) 75 Mg Tab 75 MG PO DAILY for Blood Clot Prevention, #30 TAB 0 Refills Eligio Carpenter MD Dec 02, 2017 09:55
--- NOTE | 2017-12-02 11:39 | PD.CARD.PN ---
Subjective Subjective Remarks Patient was seen this morning, late entry No events overnight No chest pain/SOB Objective Medications Current Medications Aspirin (Aspirin Chew) 162 mg ONCE ONCE PO Last administered on 11/30/17at 18:45 ; Start 11/30/17 at 18:30; Stop 11/30/17 at 18:31; Status DC Heparin Sodium (Porcine) (Heparin Inj) 5,000 units ONCE ONCE IV Last administered on 11/30/17at 19:45; Start 11/30/17 at 19:15; Stop 11/30/17 at 19:17; Status DC Heparin Sodium (Porcine) (Heparin Inj) 5,000 units UNSCH PRN IV APTT LESS THAN 25; Start 12/01/17 at 01:15; Stop 12/01/17 at 13:10; Status DC Heparin Sodium (Porcine) (Heparin Inj) 2,500 units UNSCH PRN IV APTT 25 TO 39; Start 12/01/17 at 01:15; Stop 12/01/17 at 13:10; Status DC Heparin Sodium/ Dextrose 250 ml @ 9 mls/hr TITRATE PRN IV Coagulation Management Last administered on 11/30/17at 19:49; Start 11/30/17 at 19:15; Stop 12/01/17 at 13:10; Status DC Nitroglycerin (Nitroglycerin 2% Oint) 1 inch ONCE ONCE TOPICAL Last administered on 11/30/17at 19:45; Start 11/30/17 at 19:15; Stop 12/01/17 at 13:10; Status DC Sodium Chloride (NS Flush) 2 ml UNSCH PRN IV FLUSH FLUSH AFTER USING IV ACCESS ; Start 11/30/17 at 20:30; Stop 12/02/17 at 11:10; Status DC Sodium Chloride (NS Flush) 2 ml BID IV FLUSH Last administered on 12/02/17at 09: 00; Start 11/30/17 at 21:00; Stop 12/02/17 at 11:10; Status DC Acetaminophen (Tylenol) 650 mg Q4H PRN PO TEMP > 100.4; Start 11/30/17 at 20:30 ; Status UNV Ondansetron HCl (Zofran Inj) 4 mg Q6H PRN IVP NAUSEA OR VOMITING; Start at 20:30; Stop 12/02/17 at 11:10; Status DC Naloxone HCl (Narcan Inj) 0.4 mg UNSCH PRN IV PUSH SEE LABEL COMMENTS; Start at 20:30; Stop 12/02/17 at 11:10; Status DC Magnesium Hydroxide (Milk Of Magnesia Liq) 30 ml Q12H PRN PO Mild constipation ; Start 11/30/17 at 20:30; Stop 12/02/17 at 11:10; Status DC Sennosides (Senokot) 17.2 mg Q12H PRN PO Moderate constipation; Start 11/30/17 at 20:30; Stop 12/02/17 at 11:10; Status DC Bisacodyl (Dulcolax Supp) 10 mg DAILY PRN RECTAL SEVERE CONSITIPATION; Start at 20:30; Stop 12/02/17 at 11:10; Status DC Acetaminophen (Tylenol) 650 mg Q6H PRN PO PAIN SCALE 1 TO 2/LIMON/Fever 101; Start 11/30/17 at 20:30; Stop 12/02/17 at 11:10; Status DC Acetaminophen/ Hydrocodone Bitart ([place] 5-325 Mg) 1 tab Q4H PRN PO PAIN SCALE 3 TO 5; Start 11/30/17 at 20:30; Stop 12/02/17 at 11:10; Status DC Morphine Sulfate (Morphine Inj) 3 mg Q3H PRN IV PUSH Pain 6-10; Start 11/30/17 at 20:30; Stop 12/02/17 at 11:10; Status DC Atorvastatin Calcium (Lipitor) 20 mg HS PO Last administered on 12/01/17at 21:05 ; Start 11/30/17 at 21:00; Stop 12/02/17 at 11:10; Status DC Clopidogrel Bisulfate (Plavix) 75 mg DAILY PO Last administered on 12/02/17at 09: 07; Start 12/01/17 at 09:00; Stop 12/02/17 at 11:10; Status DC Nitroglycerin (Nitrostat Sl) 0.4 mg Q5M PRN SL CHEST PAIN; Start 11/30/17 at 21: 45; Stop 12/02/17 at 11:10; Status DC Hydralazine HCl (Apresoline Inj) 10 mg Q6H PRN IV PUSH SEE LABEL COMMENTS Last administered on 11/30/17at 22:41; Start 11/30/17 at 21:45; Stop 12/02/17 at 11:10; Status DC Isosorbide Mononitrate (Imdur) 30 mg DAILY@07 PO Last administered on 12/02/17at 06:05; Start 12/02/17 at 07:00; Stop 12/02/17 at 11:10; Status DC Aspirin (Aspirin Chew) 81 mg DAILY CHEW Last administered on 12/02/17at 09:08; Start 12/02/17 at 09:00; Stop 12/02/17 at 11:10; Status DC Vital Signs / I&O Vital Signs Date Time Temp Pulse Resp B/P (MAP) Pulse Ox O2 Delivery O2 Flow Rate FiO2 12/02/17 08:00 77 12/02/17 08:00 98.1 77 18 138/78 (98) 98 12/02/17 07:00 74 12/02/17 06:27 69 12/02/17 05:12 70 12/02/17 04:01 72 12/02/17 03:59 98.5 78 17 135/69 (91) 94 12/02/17 03:18 75 12/02/17 02:09 68 12/02/17 01:53 68 12/02/17 00:23 72 12/01/17 23:44 98.4 81 16 145/71 (95) 100 12/01/17 23:44 71 12/01/17 22:14 75 12/01/17 21:46 76 12/01/17 20:20 82 12/01/17 19:28 98.7 81 17 158/75 (102) 94 12/01/17 19:28 80 12/01/17 18:00 86 12/01/17 17:00 82 12/01/17 16:00 80 12/01/17 16:00 98.3 78 18 138/78 (98) 98 12/01/17 15:00 78 12/01/17 14:00 82 12/01/17 13:00 77 12/01/17 12:00 84 12/01/17 12:00 98.2 78 18 142/82 (102) 98 I/O 12/01/17 12/01/17 12/01/17 12/02/17 12/02/17 12/02/17 07:00 15:00 23:00 07:00 15:00 23:00 Intake Total 100 ml 30 ml 780 ml 360 ml 700 ml Output Total 300 ml 650 ml 900 ml 620 ml Balance -200 ml 30 ml 130 ml -540 ml 80 ml Intake Oral 100 ml 750 ml 360 ml 700 ml IV Total 30 ml 30 ml Output Urine Total 300 ml 650 ml 900 ml 620 ml # Bowel Movements 0 1 0 Physical Exam GENERAL: NAD, AAOx3 SKIN: Warm and dry. HEAD: Atraumatic. Normocephalic. EYES: Pupils equal and round. No scleral icterus. No injection or drainage. ENT: No nasal bleeding or discharge. Mucous membranes pink and moist. NECK: Trachea midline. No JVD. CARDIOVASCULAR: Regular rate and rhythm. RESPIRATORY: No accessory muscle use. Clear to auscultation. Breath sounds equal bilaterally. GASTROINTESTINAL: Abdomen soft, non-tender, nondistended. Hepatic and splenic margins not palpable. MUSCULOSKELETAL: Extremities without clubbing, cyanosis, or edema. No obvious deformities. NEUROLOGICAL: Awake and alert. No obvious cranial nerve deficits. Motor grossly within normal limits. Five out of 5 muscle strength in the arms and legs. Normal speech. PSYCHIATRIC: Appropriate mood and affect; insight and judgment normal. Laboratory Laboratory Tests Test 12/02/17 03:40 Activated Partial Thromboplast Time 26.4 SEC Blood Urea Nitrogen 24 MG/DL Creatinine 1.91 MG/DL Random Glucose 98 MG/DL Total Protein 7.2 GM/DL Albumin 3.2 GM/DL Calcium Level 9.1 MG/DL Alkaline Phosphatase 97 U/L Aspartate Amino Transf (AST/SGOT) 16 U/L Alanine Aminotransferase (ALT/SGPT) 14 U/L Total Bilirubin 0.4 MG/DL Sodium Level 141 MEQ/L Potassium Level 3.7 MEQ/L Chloride Level 110 MEQ/L Carbon Dioxide Level 24.3 MEQ/L Anion Gap 7 MEQ/L Estimat Glomerular Filtration Rate 34 ML/MIN Assessment and Plan Problem List: (1) Non-ST elevation TN (NSTEMI) ICD Codes: I21.4 - Non-ST elevation (NSTEMI) myocardial infarction Status: Acute (2) Atypical chest pain Status: Chronic (3) Hypertension Nos (4) Tobacco Use Disorder Status: Chronic (5) CKD (chronic kidney disease) stage 3, GFR 30-59 ml/min ICD Codes: N18.3 - CKD (chronic kidney disease) stage 3, GFR 30-59 ml/min Status: Chronic Assessment and Plan 1) Chest pain concerning for coronary insufficiency with an elevated troponin 2) Discussed consideration of ischemic evaluation Patient does not want an ischemic evaluation Wants to continue on medical management 3) Con't Lipitor/Plavix, add ASA and Imdur 4) Cardiovascularly stable for discharge today Acosta Alcala DO Dec 02, 2017 11:39
== END 2017-12-02 11:09 | disposition home or self-care (01) | DRG 281 ==
LOC: NEPC 16:18 → NEDA 19:30 → HCPC 21:45
PROVIDERS: ADMIT Hospitalist; ATTEND Hospitalist
DX: I21.4 Non-ST elevation (NSTEMI) myocardial infarction (principal); N17.9 Acute kidney failure, unspecified; E78.5 Hyperlipidemia, unspecified; I25.10 Atherosclerotic heart disease of native coronary artery without angina pectoris; Z95.5 Presence of coronary angioplasty implant and graft; Z79.02 Long term (current) use of antithrombotics/antiplatelets; Z79.82 Long term (current) use of aspirin; F17.210 Nicotine dependence, cigarettes, uncomplicated; I12.9 Hypertensive chronic kidney disease with stage 1 through stage 4 chronic kidney disease, or unspecified chronic kidney disease; N18.3 Chronic kidney disease, stage 3 (moderate); Z86.73 Personal history of transient ischemic attack (TIA), and cerebral infarction without residual deficits; Z90.6 Acquired absence of other parts of urinary tract
CPT/HCPCS: 71046; 76937; 80048; 80053; 82550; 83690; 83735; 83880; 84484; 85025; 85610; 85730; 93005; 99285; J0360; J1644

== ENCOUNTER 2018-02-16 18:31 | Inpatient (IN) | payer OTHER, MEDICARE ==
[~2018-02-16] VITALS: Ht 177.8 cm; Wt 69.7 kg
[~2018-02-16 18:31] MED LIST changes: +ASPI81 CHEW; -ASPI81 PO; +ATOR20TA15 PO; -ATOR20TA42 PO; +CARV3.125 PO; -CLOP75 PO; +CLOP75TA PO; -ECOT81TA2 PO; -FISH1000 PO; +ISOS30TA3 PO; -LISI10 PO; -METO50 PO; +NITR0.4S SL; -[UNRECOGNIZED DRUG - OTHER]
[2018-02-16 20:30] VITALS: BP 143/98; PULSE 103; RESP 16; TEMP 98.9; O2SAT 97
[2018-02-16] MEDS ORDERED: FERR325T18 PO (20:40)
[2018-02-16] MEDS ORDERED: VITA10002 PO (20:40)
[2018-02-16] MEDS ORDERED: VITA100018 PO (20:40)
[2018-02-16] MEDS ORDERED: SODIUM CHLORID 0.9% 500 ML INJ 500 ML IV ONE (20:45)
[2018-02-16] MEDS ORDERED: TRIA0.022 TOPICAL (20:55)
[2018-02-16] MEDS ORDERED: FOLI400T PO (20:55)
[2018-02-16] MEDS ORDERED: PRAV20TA2 PO (20:55)
[2018-02-16] MEDS ORDERED: VENTAER INH (20:55)
--- NOTE | 2018-02-16 21:22 | PD ---
HPI Chief Complaint: Medical Clearance Time Seen by Provider: 20:37 Travel History International Travel<30 days: No Contact w/Intl Traveler<30days: No Traveled to known affect area: No History of Present Illness HPI 82-year-old male who presents to the ED for evaluation of generalized weakness, failure to thrive for about a week. Patient has a significant history of COPD and apparently continues to smoke. He does have a history of AAA that was repaired as well as stents and CVA. Per report I was given her family patient has no been eating and the most part been weak on his leg not able to ambulate. He apparently did fall and hit his nose and has a bruise to his nose. Per patient he did not want to come here with his family made him. He allergy to penicillin. He denies any pain. When asked if patient has any weakness she states that she has weakness to her legs. Patient has urostomy secondary to having bladder cancer in the bladder removed. Denies any numbness, drooling, weakness. No other medical issues. History is limited as patient himself appears to be a poor historian. No family present during my initial evaluation. PFSH Past Medical History AAA: Yes Anxiety: No Depression: No Cancer: Yes Cardiovascular Problems: Yes (AAA 3 STENTS) High Cholesterol: Yes Chemotherapy: Yes (98 ) Cerebrovascular Accident: Yes (neuroimaging report indicates previous CVAs) Endocrine: No Genitourinary: Yes Hypertension: Yes Immune Disorder: No Musculoskeletal: No Neurologic: No Psychiatric: No Reproductive: No Respiratory: No Renal Failure: Yes (98) Past Surgical History Abdominal Aneurysm Repair: Yes (STENTS PLACED 10/22/10) Abdominal Surgery: Yes (HERNIA REPAIR) AICD: No Arteriovenous Shunt: No Cardiac Surgery: Yes (STENTS AORTA) Ear Surgery: No Endocrine Surgery: No Eye Surgery: No Genitourinary Surgery: Yes (BLADDER REMOVED) Insulin Pump: No Joint Replacement: No Oral Surgery: No Pacemaker: No Other Surgery: Yes (PENILE IMPLANT) Social History Alcohol Use: Yes Tobacco Use: Yes Substance Use: No Allergies-Medications (Allergen,Severity, Reaction): Coded Allergies: penicillin G (Unverified Allergy, Severe, Swelling, 06/08/17) Reported Meds & Prescriptions Reported Meds & Active Scripts Active Coreg (Carvedilol) 3.125 Mg Tab 3.125 Mg PO BID Nitrostat SL (Nitroglycerin) 0.4 Mg Subl 0.4 Mg SL Q5M PRN Isosorbide Mononitrate ER (Isosorbide Mononitrate) 30 Mg Osmar 30 Mg PO DAILY Tgt Aspirin (Aspirin) 81 Mg Chw 81 Mg CHEW DAILY Reported Ventolin Hfa 18 GM Inh (Albuterol Sulfate) 90 Mcg/Act Aer 2 Puff INH Q4-6H PRN Triamcinolone Topical 0.025 % Oint 1 Applic TOPICAL BID Pravastatin 20 Mg Tab 20 Mg PO ZMOWEFR Folic Acid 0.4 Mg Tab 400 Mcg PO ZMOWEFR Vitamin D3 (Cholecalciferol) 1,000 Unit Tab 1,000 Units PO ZMOWEFR Ferrous Sulfate 325 Mg (65 Mg Iron) Tablet 325 Mg PO ZMOWEFR Vitamin B-12 (Cyanocobalamin) 1,000 Mcg Tab 1,000 Mcg PO DAILY Clopidogrel (Clopidogrel Bisulfate) 75 Mg Tab 75 Mg PO DAILY Review of Systems Except as stated in HPI: all other systems reviewed are Neg Physical Exam Narrative GENERAL: SKIN: Warm and dry. HEAD: Atraumatic. Normocephalic. EYES: Pupils equal and round. No scleral icterus. No injection or drainage. ENT: No nasal bleeding or discharge. Mucous membranes pink and moist. Tongue is midline. No uvula deviation. NECK: Trachea midline. No JVD. CARDIOVASCULAR: Regular rate and rhythm. No murmurs, S3, S4. RESPIRATORY: No accessory muscle use. Clear to auscultation. Breath sounds equal bilaterally. GASTROINTESTINAL: Abdomen soft, non-tender, nondistended. Hepatic and splenic margins not palpable. MUSCULOSKELETAL: Extremities without clubbing, cyanosis, or edema. No obvious deformities. Full range of motion of the upper and lower extremities bilaterally. Patient does have 4-5 weakness in the lower extremities especially with plantarflexion. Sensation intact bilaterally. 2+ pulses bilaterally. No lumbar, thoracic, cervical spine tenderness to palpation. NEUROLOGICAL: Awake and alert. No obvious cranial nerve deficits. Motor grossly within normal limits. Five out of 5 muscle strength in the arms and legs. Normal speech. PSYCHIATRIC: Appropriate mood and affect; insight and judgment normal. Data Data Last Documented VS Vital Signs Date Time Temp Pulse Resp B/P (MAP) Pulse Ox O2 Delivery O2 Flow Rate FiO2 02/16/18 20:30 98.9 103 16 143/98 (113) 97 Orders Orders Electrocardiogram (02/16/18 20:37) Complete Blood Count With Diff (02/16/18 20:37) Comprehensive Metabolic Panel (02/16/18 20:37) Ckmb (Isoenzyme) Profile (02/16/18 20:37) Troponin I (02/16/18 20:37) Prothrombin Time / Inr (Pt) (02/16/18 20:37) Act Partial Throm Time (Ptt) (02/16/18 20:37) Blood Culture (02/16/18 20:37) Lipase (02/16/18 20:37) Urinalysis - C+S If Indicated (02/16/18 20:37) Magnesium (Mg) (02/16/18 20:37) Thyroid Stimulating Hormone (02/16/18 20:37) Chest, Single Ap (02/16/18 20:37) Ct Brain W/O Iv Contrast(Rout) (02/16/18 20:37) Iv Access Insert/Monitor (02/16/18 20:37) Ecg Monitoring (02/16/18 20:37) Oximetry (02/16/18 20:37) Lactic Acid Sepsis Protocol (02/16/18 20:37) Sodium Chlorid 0.9% 500 Ml Inj (Ns 500 M (02/16/18 20:45) Urine Culture (02/16/18 20:40) Hip, Uni(Ap&Lat) W Ap Pelvis (02/16/18 ) Spine, Lumbar Comp W/Obliq (02/16/18 ) Ciprofloxacin 400 Mg Premix (Cipro 400 M (02/16/18 22:30) Admit Order (Ed Use Only) (02/16/18 22:36) Labs Laboratory Tests Test 02/16/18 20:40 White Blood Count 12.1 TH/MM3 Red Blood Count 4.06 MIL/MM3 Hemoglobin 12.6 GM/DL Hematocrit 35.9 % Mean Corpuscular Volume 88.5 FL Mean Corpuscular Hemoglobin 30.9 PG Mean Corpuscular Hemoglobin Concent 35.0 % Red Cell Distribution Width 13.3 % Platelet Count 132 TH/MM3 Mean Platelet Volume 7.9 FL Neutrophils (%) (Auto) 86.3 % Lymphocytes (%) (Auto) 7.9 % Monocytes (%) (Auto) 4.9 % Eosinophils (%) (Auto) 0.6 % Basophils (%) (Auto) 0.3 % Neutrophils # (Auto) 10.4 TH/MM3 Lymphocytes # (Auto) 1.0 TH/MM3 Monocytes # (Auto) 0.6 TH/MM3 Eosinophils # (Auto) 0.1 TH/MM3 Basophils # (Auto) 0.0 TH/MM3 CBC Comment DIFF FINAL Differential Comment Prothrombin Time 11.4 SEC Prothromb Time International Ratio 1.1 RATIO Activated Partial Thromboplast Time 28.5 SEC Urine Color LIGHT-RED Urine Turbidity CLOUDY Urine pH 7.5 Urine Specific [place] 1.015 Urine Protein 300 mg/dL Urine Glucose (UA) NEG mg/dL Urine Ketones NEG mg/dL Urine Occult Blood MOD Urine Nitrite NEG Urine Bilirubin NEG Urine Urobilinogen 4.0 MG/DL Urine Leukocyte Esterase LARGE Urine RBC /hpf Urine WBC /hpf Urine Squamous Epithelial Cells 30 /hpf Urine Amorphous Sediment RARE Urine Bacteria MANY /hpf Urine Mucus MOD /lpf Microscopic Urinalysis Comment CULTURE INDICATED Blood Urea Nitrogen 26 MG/DL Creatinine 2.03 MG/DL Random Glucose 111 MG/DL Total Protein 8.8 GM/DL Albumin 3.2 GM/DL Calcium Level 9.7 MG/DL Magnesium Level 1.9 MG/DL Alkaline Phosphatase 153 U/L Aspartate Amino Transf (AST/SGOT) 27 U/L Alanine Aminotransferase (ALT/SGPT) 28 U/L Total Bilirubin 0.8 MG/DL Sodium Level 138 MEQ/L Potassium Level 3.5 MEQ/L Chloride Level 106 MEQ/L Carbon Dioxide Level 22.0 MEQ/L Anion Gap 10 MEQ/L Estimat Glomerular Filtration Rate 32 ML/MIN Lactic Acid Level 1.3 mmol/L Total Creatine Kinase 30 U/L Troponin I 0.08 NG/ML Lipase 122 U/L Thyroid Stimulating Hormone 3rd Gen 1.280 uIU/ML MDM Medical Decision Making Medical Screen Exam Complete: Yes Emergency Medical Condition: Yes Medical Record Reviewed: Yes Interpretation(s) CBC & BMP Diagram 02/16/18 20:40 Total Protein 8.8 H, Albumin 3.2 L, Calcium Level 9.7, Magnesium Level 1.9, Alkaline Phosphatase 153 H, Aspartate Amino Transf (AST/SGOT) 27, Alanine Aminotransferase (ALT/SGPT) 28, Total Bilirubin 0.[address] 02/16/182036 Signed Impressions: Service Date/Time: WednesFebruary 16, 2018 21:06 - CONCLUSION: No acute intracranial abnormality. Atrophy and chronic white matter changes. Kareem Galicia MD Chest X-Ray 02/16/[id number] Signed Impressions: Service Date/Time: Friday, February 16, 2018 21:01 - CONCLUSION: No acute cardiopulmonary disease demonstrated. Kareem Galicia MD Lumbar Spine X-Ray 02/16/18 0000 Signed Impressions: Service Date/Time: Friday, February 16, 2018 22:10 - CONCLUSION: Mid and lower lumbar degenerative changes as above. No fracture or subluxation. Kareem Galicia MD Hip and Pelvis X-Ray 02/16/18 0000 Signed Impressions: Service Date/Time: Friday, February 16, 2018 22:08 - CONCLUSION: Normal radiographic appearance of the bony pelvis and right hip. Kareem Galicia MD EKG showed no sign of acute disease other than sinus tachycardia. No sign of ischemia. Differential Diagnosis Failure to thrive versus generalized weakness versus stroke versus weakness versus an STEMI versus STEMI versus atypical chest pain versus bladder issue versus sepsis Narrative Course 82-year-old male that presents to the ED for evaluation of weakness. Patient was properly examined and was found to have signs and symptoms consistent with appears to be weakness of unclear etiology. Labs and imaging order. Labs and imaging showed possible UTI. Otherwise unremarkable. Patient still somewhat confused and weak. Recommendation at this time is for admission for further eval. Case discussed with Dr Sosa who agreed to admission. Diagnosis Primary Impression: UTI (urinary tract infection) Qualified Codes: N30.00 - Acute cystitis without hematuria Additional Impressions: Weakness Confusion Admitting Information Admitting Physician Requests: Nagi Fleming Feb 16, 2018 21:22
--- NOTE | 2018-02-16 21:25 | RADRPT ---
EXAM DATE/TIME: 02/16/2018 21:01 [facility] COMPARISON: CHEST PA & LAT, November 30, 2017, 16:55. INDICATIONS : Shortness of breath. MEDICAL HISTORY : Unobtainable. SURGICAL HISTORY : Unobtainable. ENCOUNTER: Initial ACUITY: 1 day PAIN SCORE: Non-responsive. LOCATION: chest FINDINGS: A single view of the chest demonstrates the lungs to be symmetrically aerated without evidence of mas s, infiltrate or effusion. Normal, stable heart size. Very tortuous thoracic aorta again seen. CONCLUSION: No acute cardiopulmonary disease demonstrated. Kareem Galicia MD on February 16, 2018 at 21:22 Board Certified Radiologist. This report was verified electronically.
--- NOTE | 2018-02-16 21:28 | RADRPT ---
EXAM DATE/TIME: 02/16/2018 21:06 [facility] COMPARISON: Report only CT BRAIN W/O CONTRAST, August 26, 2013, 12:48. INDICATIONS : Weakness. RADIATION DOSE: 56.35 CTDIvol (mGy) MEDICAL HISTORY : Aneurysm, abdominal. Hypertension. Renal failure, chronic. SURGICAL HISTORY : None. ENCOUNTER: Initial ACUITY: 1 day PAIN SCALE: 3/10 LOCATION: cranial TECHNIQUE: Multiple contiguous axial images were obtained of the head. Using automated exposure control and adj ustment of the mA and/or kV according to patient size, radiation dose was kept as low as reasonably a chievable to obtain optimal diagnostic quality images. DICOM format image data is available electro nically for review and comparison. FINDINGS: CEREBRUM: The ventricles are normal for age. No evidence of midline shift, mass lesion, hemorrhage or acute in farction. No extra-axial fluid collections are seen. Atrophy and chronic low-attenuation in the vernon ventricular white matter noted. POSTERIOR FOSSA: The cerebellum and brainstem are intact. The 4th ventricle is midline. The cerebellopontine angle i s unremarkable. EXTRACRANIAL: The visualized portion of the orbits is intact. SKULL: The calvaria is intact. No evidence of skull fracture. CONCLUSION: No acute intracranial abnormality. Atrophy and chronic white matter changes. Kareem Galicia MD on February 16, 2018 at 21:24 Board Certified Radiologist. This report was verified electronically.
[2018-02-16 21:35] LABS: AUTOMATED NEUTROPHIL # 10.4 TH/MM3 (1.8-7.7); BASOPHIL % 0.3 % (0.0-2.0); EOSINOPHIL # 0.1 TH/MM3 (0-0.4); EOSINOPHIL % 0.6 % (0.0-4.0); HEMATOCRIT 35.9 % (39.0-51.0); HEMOGLOBIN 12.6 GM/DL (13.0-17.0); LYMPH % 7.9 % (9.0-44.0); MEAN CELL VOLUME 88.5 FL (80.0-100.0); MEAN CORPUSCULAR HEMOGLOBIN 30.9 PG (27.0-34.0); MEAN PLATELET VOLUME 7.9 FL (7.0-11.0); MONO % 4.9 % (0.0-8.0); MONOCYTE # 0.6 TH/MM3 (0-0.9); NEUT % 86.3 % (16.0-70.0); PLATELET COUNT 132 TH/MM3 (150-450); RED BLOOD COUNT 4.06 MIL/MM3 (4.50-5.90); RED CELL DISTRIBUTION WIDTH 13.3 % (11.6-17.2); WHITE BLOOD COUNT 12.1 TH/MM3 (4.0-11.0)
[2018-02-16 21:46] LABS: INTERNATIONAL NORMALIZED RATIO 1.1 RATIO; PROTHROMBIN TIME - PATIENT 11.4 SEC (9.8-11.6)
[2018-02-16 21:47] LABS: AMORPHOUS SEDIMENT, URINE RARE; BACTERIA, URINE MANY /hpf; BILIRUBIN, URINE NEG (NEG); BLOOD, URINE MOD (NEG); GLUCOSE,URINE NEG (NEG); KETONE, URINE NEG (NEG); MUCUS URINE MOD /lpf (OCC); NITRITE,URINE NEG (NEG); PH, URINE 7.5 (5.0-8.5); SQUAMOUS EPITHELIAL CELL URINE 30 /hpf (0-5); URINE COLOR LIGHT-RED (YELLW/STRAW); URINE LEUKOCYTE ESTERASE LARGE (NEG)
[2018-02-16 21:53] LABS: ALBUMIN 3.2 GM/DL (3.4-5.0); AST (GOT) 27 U/L (15-37); BLOOD UREA NITROGEN 26 MG/DL (7-18); CALCIUM 9.7 MG/DL (8.5-10.1); CHLORIDE 106 MEQ/L (98-107); CREATININE 2.03 MG/DL (0.60-1.30); GLOMERULAR FILTRATION RATE 32 ML/MIN (>89); GLUCOSE,RANDOM 111 MG/DL (74-106); MAGNESIUM 1.9 MG/DL (1.5-2.5); SODIUM (NA) 138 MEQ/L (136-145)
[2018-02-16 21:54] LABS: ALT (GPT) 28 U/L (12-78)
[2018-02-16 22:04] LABS: ALKALINE PHOSPHATASE 153 U/L (45-117); TOTAL BILIRUBIN ADULT 0.8 MG/DL (0.2-1.0); TOTAL PROTEIN 8.8 GM/DL (6.4-8.2); TROPONIN I 0.08 NG/ML (0.02-0.05)
[2018-02-16] MEDS ORDERED: CIPROFLOXACIN 400 MG PREMIX 200 ML IV ONE (22:30)
--- NOTE | 2018-02-16 22:42 | RADRPT ---
EXAM DATE/TIME: 02/16/2018 22:08 [facility] COMPARISON: No previous studies available for comparison. INDICATIONS : Right hip pain with no known injury MEDICAL HISTORY : None. SURGICAL HISTORY : None. ENCOUNTER: Initial ACUITY: 1 day PAIN SCORE: 5/10 LOCATION: Right entire hip FINDINGS: Examination of the right hip was performed with AP Pelvis. The primary and secondary trabecular ángela abdirahman of the femoral neck is intact. The hip joint is of normal width without significant sclerosis or bony hypertrophy. The acetabulum is grossly intact. There is an aortoiliac stent graft. Evidence of previous pelvic lymph node dissection. Penile prosthe sis present. CONCLUSION: Normal radiographic appearance of the bony pelvis and right hip. Kareem Galicia MD on February 16, 2018 at 22:39 Board Certified Radiologist. This report was verified electronically.
--- NOTE | 2018-02-16 22:43 | RADRPT ---
EXAM DATE/TIME: 02/16/2018 22:10 [facility] COMPARISON: No previous studies available for comparison. INDICATIONS : Lower back pain with no known injury MEDICAL HISTORY : Aneurysm, abdominal. Hypertension. Renal failure, chronic SURGICAL HISTORY : Abdominal aortic aneurysm repair. ENCOUNTER: Initial ACUITY: 1 day PAIN SCORE: 5/10 LOCATION: Lumbar spine FINDINGS: There is no fracture or subluxation of the lumbar spine. Vertebral bodies have normal height. Mild disc space narrowing at L3/L4 and L4/L5. 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 CONCLUSION: Mid and lower lumbar degenerative changes as above. No fracture or subluxation. Kareem Galicia MD on February 16, 2018 at 22:40 Board Certified Radiologist. This report was verified electronically.
[2018-02-16 23:13] VITALS: BP 176/96; PULSE 98; RESP 17; O2SAT 97
[2018-02-16] MEDS ORDERED: SENNOSIDES 8.6 MG TAB PO PRN (23:30)
[2018-02-16] MEDS ORDERED: ACETAMINOPHEN 325 MG TAB PO PRN (23:30)
[2018-02-16] MEDS ORDERED: LACTULOSE SYRUP 20 GM/30 ML CUP PO PRN (23:30)
[2018-02-16] MEDS ORDERED: BISACODYL 10 MG SUPP RECTAL PRN (23:30)
[2018-02-16] MEDS ORDERED: ONDANSETRON HCL 4 MG/2 ML VIAL IVP PRN (23:30)
[2018-02-16] MEDS ORDERED: MAGNESIUM HYDROXIDE SUSP 30 ML CUP PO PRN (23:30)
[2018-02-16] MEDS ORDERED: SODIUM CHLORIDE 0.9% FLUSH 10 ML FLUSH IV FLUSH PRN (23:30)
[2018-02-16] MEDS ORDERED: NALOXONE HCL 0.4 MG/ML AMP IV PUSH PRN (23:30)
--- NOTE | 2018-02-16 23:34 | HHI.HP ---
[facility] Unknown Admission Diagnosis urosepsis, AMS, weakness Diagnoses: Travel History International Travel<30 Days: No Contact w/Intl Traveler <30 Da: No Traveled to Known Affected Are: No History of Present Illness 82-year-old male with a past medical history significant for coronary disease and hyperlipidemia was brought to the emergency department by his daughters for the evaluation of possible UTI. Patient's daughters are in [place] and arrived to move their father up to [place] to care for him. Upon arriving they found that he was weak and unable to ambulate on his own. He has had an increase in falls suffering from 2 falls in 24 hours. He has had approximately a one-week history of fever/chills and his daughters are concerned for a urinary tract infection. The patient has a suprapubic catheter from a history of bladder cancer. The patient's daughters report that he had altered mentation and confusion worsening over the past week. They state the symptoms are similar to a year ago when he was diagnosed with a urinary tract infection. The patient denies pain everywhere except his right hip. No chest pain or shortness of breath. No lateralizing signs/symptoms. No abdominal pain. No nausea/vomiting/diarrhea. Review of Systems Except as stated in HPI: all other systems reviewed are Neg Past Family Social History Past Medical History History of bladder cancer Hyperlipidemia Coronary artery disease Past Surgical History Suprapubic catheter placement Cardiac catheterization with stent placement approximately 4 years ago Reported Medications Reported Meds & Active Scripts Active Coreg (Carvedilol) 3.125 Mg Tab 3.125 Mg PO BID Nitrostat SL (Nitroglycerin) 0.4 Mg Subl 0.4 Mg SL Q5M PRN Isosorbide Mononitrate ER (Isosorbide Mononitrate) 30 Mg Osmar 30 Mg PO DAILY Tgt Aspirin (Aspirin) 81 Mg Chw 81 Mg CHEW DAILY Reported Ventolin Hfa 18 GM Inh (Albuterol Sulfate) 90 Mcg/Act Aer 2 Puff INH Q4-6H PRN Triamcinolone Topical 0.025 % Oint 1 Applic TOPICAL BID Pravastatin 20 Mg Tab 20 Mg PO ZMOWEFR Folic Acid 0.4 Mg Tab 400 Mcg PO ZMOWEFR Vitamin D3 (Cholecalciferol) 1,000 Unit Tab 1,000 Units PO ZMOWEFR Ferrous Sulfate 325 Mg (65 Mg Iron) Tablet 325 Mg PO ZMOWEFR Vitamin B-12 (Cyanocobalamin) 1,000 Mcg Tab 1,000 Mcg PO DAILY Clopidogrel (Clopidogrel Bisulfate) 75 Mg Tab 75 Mg PO DAILY Allergies: Coded Allergies: penicillin G (Unverified Allergy, Severe, Swelling, 06/08/17) Family History Patient does not know Social History Smokes approximately 1 pack per day. Denies alcohol and illicit drugs. Physical Exam Vital Signs Vital Signs Date Time Temp Pulse Resp B/P (MAP) Pulse Ox O2 Delivery O2 Flow Rate FiO2 02/16/18 23:13 98 17 176/96 (122) 97 Room Air 02/16/18 20:30 98.9 103 16 143/98 (113) 97 Physical Exam GENERAL: male lying in bed SKIN: No rashes, ecchymoses or lesions. Cool and dry. HEAD: Atraumatic. Normocephalic. No temporal or scalp tenderness. EYES: Pupils equal round and reactive. Extraocular motions intact. No scleral icterus. No injection or drainage. ENT: Nose without bleeding, purulent drainage or septal hematoma. Throat without erythema, tonsillar hypertrophy or exudate. Uvula midline. Airway patent. NECK: Trachea midline. No JVD or lymphadenopathy. Supple, nontender, no meningeal signs. CARDIOVASCULAR: Regular rate and rhythm without murmurs, gallops, or rubs. RESPIRATORY: Clear to auscultation. Breath sounds equal bilaterally. No wheezes , rales, or rhonchi. GASTROINTESTINAL: Abdomen soft, non-tender, nondistended. No hepato-splenomegaly , or palpable masses. No guarding. : Suprapubic catheter in place without signs of surrounding infection MUSCULOSKELETAL: Extremities without clubbing, cyanosis, or edema. No joint tenderness, effusion, or edema noted. No calf tenderness. NEUROLOGICAL: Awake and alert. Cranial nerves II through XII intact. Moves all 4 extremities spontaneously Laboratory Laboratory Tests Test 02/16/18 20:40 White Blood Count 12.1 Red Blood Count 4.06 Hemoglobin 12.6 Hematocrit 35.9 Mean Corpuscular Volume 88.5 Mean Corpuscular Hemoglobin 30.9 Mean Corpuscular Hemoglobin Concent 35.0 Red Cell Distribution Width 13.3 Platelet Count 132 Mean Platelet Volume 7.9 Neutrophils (%) (Auto) 86.3 Lymphocytes (%) (Auto) 7.9 Monocytes (%) (Auto) 4.9 Eosinophils (%) (Auto) 0.6 Basophils (%) (Auto) 0.3 Neutrophils # (Auto) 10.4 Lymphocytes # (Auto) 1.0 Monocytes # (Auto) 0.6 Eosinophils # (Auto) 0.1 Basophils # (Auto) 0.0 CBC Comment DIFF FINAL Differential Comment Prothrombin Time 11.4 Prothromb Time International Ratio 1.1 Activated Partial Thromboplast Time 28.5 Urine Color LIGHT-RED Urine Turbidity CLOUDY Urine pH 7.5 Urine Specific [place] 1.015 Urine Protein 300 Urine Glucose (UA) NEG Urine Ketones NEG Urine Occult Blood MOD Urine Nitrite NEG Urine Bilirubin NEG Urine Urobilinogen 4.0 Urine Leukocyte Esterase LARGE Urine RBC Urine WBC Urine Squamous Epithelial Cells 30 Urine Amorphous Sediment RARE Urine Bacteria MANY Urine Mucus MOD Microscopic Urinalysis Comment CULTURE INDICATED Blood Urea Nitrogen 26 Creatinine 2.03 Random Glucose 111 Total Protein 8.8 Albumin 3.2 Calcium Level 9.7 Magnesium Level 1.9 Alkaline Phosphatase 153 Aspartate Amino Transf (AST/SGOT) 27 Alanine Aminotransferase (ALT/SGPT) 28 Total Bilirubin 0.8 Sodium Level 138 Potassium Level 3.5 Chloride Level 106 Carbon Dioxide Level 22.0 Anion Gap 10 Estimat Glomerular Filtration Rate 32 Lactic Acid Level 1.3 Total Creatine Kinase 30 Troponin I 0.08 Lipase 122 Thyroid Stimulating Hormone 3rd Gen 1.280 Date/Time Source Procedure Growth Status 02/16/18 20:35 Blood Peripheral Aerobic Blood Culture Pending Received 02/16/18 20:35 Blood Peripheral Anaerobic Blood Culture Pending Received 02/16/18 20:40 Urine Random Urine Urine Culture Pending Received Result Diagram: 02/16/18203902/16/182039 Caprini VTE Risk Assessment Caprini VTE Risk Assessment: Mod/High Risk (score >= 2) Caprini Risk Assessment Model Point Value = 1 Point Value = 2 Point Value = 3 Point Value = 5 Age 41-60 Minor surgery BMI > 25 kg/m2 Swollen legs Varicose veins or History of unexplained or recurrent spontaneous Oral contraceptives or hormone replacement Sepsis (< 1 month) Serious lung disease, including pneumonia (< 1 month) Abnormal pulmonary function Acute myocardial infarction Congestive heart failure (< 1 month) History of inflammatory bowel disease Medical patient at bed rest Age 61-74 Arthroscopic surgery Major open surgery (> 45 min) Laparoscopic surgery (> 45 min) Malignancy Confined to bed (> 72 hours) Immobilizing plaster cast Central venous access Age >= 75 History of VTE Family history of VTE Factor V Leiden Prothrombin [id number] Lupus anticoagulant Anticardiolipin antibodies Elevated serum homocysteine Heparin-induced thrombocytopenia Other congenital or acquired thrombophilia Stroke (< 1 month) Elective arthroplasty Hip, pelvis, or leg fracture Acute spinal cord injury (< 1 month) Prophylaxis Regimen Total Risk Factor Score Risk Level Prophylaxis Regimen 0-1 Low Early ambulation 2 Moderate Order ONE of the following: *Sequential Compression Device (SCD) *Heparin 5000 units SQ BID 3-4 Higher Order ONE of the following medications: *Heparin 5000 units SQ TID *Enoxaparin/Lovenox 40 mg SQ daily (WT < 150 kg, CrCl > 30 mL/min) *Enoxaparin/Lovenox 30 mg SQ daily (WT < 150 kg, CrCl > 10-29 mL/min) *Enoxaparin/Lovenox 30 mg SQ BID (WT < 150 kg, CrCl > 30 mL/min) AND/OR *Sequential Compression Device (SCD) 5 or more Highest Order ONE of the following medications: *Heparin 5000 units SQ TID (Preferred with Epidurals) *Enoxaparin/Lovenox 40 mg SQ daily (WT < 150 kg, CrCl > 30 mL/min) *Enoxaparin/Lovenox 30 mg SQ daily (WT < 150 kg, CrCl > 10-29 mL/min) *Enoxaparin/Lovenox 30 mg SQ BID (WT < 150 kg, CrCl > 30 mL/min) AND *Sequential Compression Device (SCD) Assessment and Plan Assessment and Plan Assessment/plan: 1. Urosepsis/indwelling suprapubic catheter Patient with leukocytosis and tachycardia UA consistent with urinary tract infection Urine, blood cultures pending Rocephin Tailor antibiotics with cultures result 2. Elevated troponin EKG significant for normal sinus rhythm with LVH, no ST segment elevations or depressions, personally reviewed Initial troponin 0.08, troponin in November 0.22 Suspect elevated troponin is baseline ACS rule out pending; serial troponins/EKGs 3. Coronary artery disease Status post stent placement Continue Plavix 4. Chronic kidney disease Creatinine 2.03, baseline 1.7 Monitor renal function IV fluid hydration 5. Hyperlipidemia Continue home medications FEN Heart healthy diet Electrolytes: Monitor and replete as needed NS at 70 cc/hour Heparin Physician Certification 2 Midnight Certification Type: Admission for Inpatient Services Order for Inpatient Services The services are ordered in accordance with Medicare regulations or non- Medicare payer requirements, as applicable. In the case of services not specified as inpatient-only, they are appropriately provided as inpatient services in accordance with the 2-midnight benchmark. Estimated LOS (days): 2 2 days is the estimated time the patient will need to remain in the hospital, assuming treatment plan goals are met and no additional complications. Post-Hospital Plan: Not yet determined Loretta Sosa MD Feb 16, 2018 23:34
[2018-02-17] VITALS (13 sets, daily range): BP systolic 155–184; BP diastolic 80–123; PULSE 79–104; RESP 16–24; TEMP 97.3–98.6; O2SAT 96–99
[2018-02-17] MEDS: HEPARIN SODIUM - SQ 10,000 UNITS/ML VIAL SQ SCH ×3 (00:49→23:32)
[2018-02-17] MEDS: SODIUM CHLOR 0.9% 1000 ML INJ 1,000 ML IV SCH ×2 (00:50→15:33)
[2018-02-17 05:23] LABS: AUTOMATED NEUTROPHIL # 11.5 TH/MM3 (1.8-7.7); BASOPHIL # 0.1 TH/MM3 (0-0.2); BASOPHIL % 0.4 % (0.0-2.0); EOSINOPHIL # 0.1 TH/MM3 (0-0.4); EOSINOPHIL % 0.7 % (0.0-4.0); HEMATOCRIT 30.6 % (39.0-51.0); HEMOGLOBIN 10.6 GM/DL (13.0-17.0); LYMPH % 8.6 % (9.0-44.0); LYMPHOCYTE # 1.2 TH/MM3 (1.0-4.8); MEAN CELL VOLUME 89.4 FL (80.0-100.0); MEAN CORPUSCULAR HGB CONC 34.7 % (32.0-36.0); MEAN PLATELET VOLUME 7.9 FL (7.0-11.0); MONO % 7.3 % (0.0-8.0); PLATELET COUNT 116 TH/MM3 (150-450); RED BLOOD COUNT 3.42 MIL/MM3 (4.50-5.90); WHITE BLOOD COUNT 13.9 TH/MM3 (4.0-11.0)
[2018-02-17 05:52] LABS: BICARBONATE 21.5 MEQ/L (21.0-32.0); CALCIUM 8.9 MG/DL (8.5-10.1); CREATININE 1.84 MG/DL (0.60-1.30)
[2018-02-17 05:56] LABS: TROPONIN I 0.09 NG/ML (0.02-0.05)
[2018-02-17] MEDS ORDERED: ISOSORBIDE MONONITRATE 30 MG CR TAB (IMDUR) PO SCH (07:00)
[2018-02-17] MEDS ORDERED: CARVEDILOL 3.125 MG TAB PO SCH (09:00)
[2018-02-17] MEDS: CLOPIDOGREL 75 MG TAB PO SCH (09:11)
[2018-02-17] MEDS: cefTRIAXone INJ 1,000 MG in SODIUM CHLORIDE 0.9% INJ 100 ML IV SCH (09:11)
[2018-02-17] MEDS: SODIUM CHLORIDE 0.9% FLUSH 10 ML FLUSH IV FLUSH SCH ×2 (09:11→21:00)
[2018-02-17] MEDS: DOCUSATE SODIUM 50 MG/SENNA 8.6 MG TAB PO SCH ×2 (09:11→21:03)
[2018-02-17 11:37] LABS: TROPONIN I 0.09 NG/ML (0.02-0.05)
[2018-02-17] MEDS: REMOVE OLD PATCH T-DERMAL SCH (13:30)
--- NOTE | 2018-02-17 13:30 | HHI.PR ---
Subjective Remarks Follow up sepsis/UTI 02/17/18-patient seen and examined, much more alert and oriented,currently afebrile. Daughters by the bedside Objective Vitals Vital Signs Date Time Temp Pulse Resp B/P (MAP) Pulse Ox O2 Delivery O2 Flow Rate FiO2 02/17/18 11:29 98.4 83 16 155/91 (112) 97 02/17/18 08:28 98.6 97 24 177/99 (125) 97 02/17/18 02:56 98.5 89 16 184/95 (124) 97 02/16/18 23:13 98 17 176/96 (122) 97 Room Air 02/16/18 20:30 98.9 103 16 143/98 (113) 97 I/O 02/16/18 02/16/18 02/16/18 02/17/18 02/17/18 02/17/18 07:00 15:00 23:00 07:00 15:00 23:00 Intake Total 780 ml 100 ml Output Total 420 ml Balance 360 ml 100 ml Intake IV Total 780 ml 100 ml Output Urine Total 420 ml Result Diagram: 02/17/18 0418 02/17/18 0418 Imaging Last Impressions Head CT 02/16/182036 Signed Impressions: Service Date/Time: Friday, February 16, 2018 21:06 - CONCLUSION: No acute intracranial abnormality. Atrophy and chronic white matter changes. Kareem Galicia MD Chest X-Ray 02/16/182036 Signed Impressions: Service Date/Time: Friday, February 16, 2018 21:01 - CONCLUSION: No acute cardiopulmonary disease demonstrated. Kareem Galicia MD Lumbar Spine X-Ray 02/16/18 0000 Signed Impressions: Service Date/Time: Friday, February 16, 2018 22:10 - CONCLUSION: Mid and lower lumbar degenerative changes as above. No fracture or subluxation. Kareem Galicia MD Hip and Pelvis X-Ray 02/16/18 0000 Signed Impressions: Service Date/Time: Friday, February 16, 2018 22:08 - CONCLUSION: Normal radiographic appearance of the bony pelvis and right hip. Kareem Galicia MD Objective Remarks GENERAL: NAD SKIN: Warm and dry. HEAD: Normocephalic. EYES: No scleral icterus. No injection or drainage. NECK: Supple, trachea midline. No JVD or lymphadenopathy. CARDIOVASCULAR: Regular rate and rhythm without murmurs, gallops, or rubs. RESPIRATORY: Breath sounds equal bilaterally. No accessory muscle use. GASTROINTESTINAL: Abdomen soft, non-tender, nondistended. MUSCULOSKELETAL: No cyanosis, or edema. BACK: Nontender without obvious deformity. No CVA tenderness. A/P Problem List: (1) Sepsis ICD Code: A41.9 - Sepsis, unspecified organism (2) UTI (urinary tract infection) ICD Code: N39.0 - Urinary tract infection, site not specified Status: Acute Assessment and Plan 82 years old man with 1. Sepsis/Urosepsis/indwelling suprapubic catheter UA consistent with urinary tract infection Urine, blood cultures pending Continue with Rocephin 2. Elevated troponin EKG significant for normal sinus rhythm with LVH, no ST segment elevations or depressions, Initial troponin 0.08, troponin in November 0.22 Suspect elevated troponin is baseline Although elevated Troponin may be baseline vs 2/2 CKD, will consult Cardiology 3. Coronary artery disease Status post stent placement Continue Plavix 4. Chronic kidney disease Avoid all nephrotoxic drugs Monitor renal function IV fluid hydration 5. Hyperlipidemia Continue home medications Problem Qualifiers (1) UTI (urinary tract infection): Qualified Codes: N30.00 - Acute cystitis without hematuria Peterson Fonseca MD Feb 17, 2018 13:30
[2018-02-17] MEDS: NICOTINE 14 MG/24 HR PATCH T-DERMAL SCH (15:32)
--- NOTE | 2018-02-17 16:27 | EKG ---
Date Performed: 02/16/2018 Time Performed: 20:44:36 PTAGE: 82 years EKG: SINUS TACHYCARDIA INFERIOR MYOCARDIAL INFARCTION ABNORMAL ECG PREVIOUS TRACING : 12/01/2017 05.30 Since the previous tracing, no significant change noted DOCTOR: Liban Suero Interpretating Date/Time 02/17/2018 16:24:32
--- NOTE | 2018-02-17 16:27 | EKG ---
Date Performed: 02/17/2018 Time Performed: 02:54:47 PTAGE: 82 years EKG: Sinus rhythm WITH SINUS ARRHYTHMIA LEFT VENTRICULAR HYPERTROPHY AND ST-T CHANGE INFERIOR MYOCARDIAL INFARCTION AB NORMAL ECG PREVIOUS TRACING : 02/16/2018 20.44 Since the previous tracing, no significant change noted DOCTOR: Liban Suero Interpretating Date/Time 02/17/2018 16:24:39
--- NOTE | 2018-02-17 16:27 | EKG ---
Date Performed: 02/17/2018 Time Performed: 09:38:19 PTAGE: 82 years EKG: Sinus rhythm WITH OCCASIONAL SUPRAVENTRICULAR PREMATURE COMPLEXES INFERIOR MYOCARDIAL INFARCTION ABNORMAL ECG PREVIOUS TRACING : 02/17/2018 02.54 Since the previous tracing, no significant change noted DOCTOR: Liban Suero Interpretating Date/Time 02/17/2018 16:24:46
[2018-02-17] MEDS: cloNIDine HCL 0.1 MG TAB PO PRN (16:52)
--- NOTE | 2018-02-17 17:22 | MB ---
cc: Seth Becerril MD, Joshua A MD DATE: 02/17/2018 REASON FOR CONSULTATION: Non-ST elevation myocardial infarction. HISTORY OF PRESENT ILLNESS: The patient is an 82-year-old white male, followed in our office by Dr. Aung Hardy, with a history of multiple medical problems including peripheral vascular disease, chronic renal insufficiency, coronary artery disease, and hypertension, who was brought to the hospital mainly with complaints of generalized weakness and poor oral intake. Cardiac enzymes were checked and his troponin levels were found to be slightly abnormal. The patient denies any recent chest pains, change in chronic dyspnea, dizziness, syncope, near syncope, palpitations, pedal edema, paroxysmal nocturnal dyspnea. Recently, he has been very sedentary. The patient was hospitalized here about 2 months ago with chest pains and possible non-ST elevation myocardial infarction and he desired conservative medical therapy at that time. PAST MEDICAL HISTORY: 1. Peripheral vascular disease, status post endovascular abdominal aortic aneurysm repair in 2009. He also has a history of left renal artery stenting. 2. Bladder cancer, status post cystoprostatectomy in 1997. 3. 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 4. Chronic renal insufficiency. 5. Hyperlipidemia. 6. Hypertension. 7. Coronary artery disease, apparently status post percutaneous coronary interventions at [facility] 2013. CARDIAC MEDICATIONS AT HOME: 1. Clopidogrel 75 mg daily. 2. Pravastatin 20 mg Wednesday, Wednesday, Wednesday. 3. Isosorbide mononitrate 30 mg daily. 4. Coreg 3.125 mg b.i.d. 5. Aspirin 81 mg daily. ALLERGIES: PENICILLIN. FAMILY HISTORY: Noncontributory. SOCIAL HISTORY: The patient smokes about a pack of cigarettes per day. He drinks occasional alcohol. REVIEW OF SYSTEMS: As in the history of present illness, otherwise negative or noncontributory. He also denies headache, abdominal pain, melena, dyspepsia, fevers, bright red blood per rectum. PHYSICAL EXAMINATION: VITAL SIGNS: His blood pressure 173/123 with a pulse of 96, respirations 24. GENERAL: He is a well-developed, thin white male, in no acute distress. NECK: Jugular venous pressure is normal. Carotid pulses are 2+ bilaterally and without bruits. CHEST: Reveals diminished breath sounds diffusely. CARDIAC: He has a regular rhythm and rate without S3, S4, or murmur. ABDOMEN: He has a soft, nontender abdomen. Bowel sounds are present. There is no definite hepatosplenomegaly. EXTREMITIES: Reveals no clubbing, cyanosis or edema. DIAGNOSTIC STUDIES: EKG from 02/16/2018 at 8:44 p.m. shows sinus tachycardia, inferior infarct age undetermined; ST abnormality, consider lateral ischemia. EKG from 02/17/2018 at 2:54 a.m. shows no changes. Chest x-ray shows no acute disease. Laboratory data includes WBC 13.9, hemoglobin 10.6, platelets 116. Potassium 3.4, BUN 27, creatinine 1.84. Troponin 0.09. INR 1.1. IMPRESSION: Minimally abnormal troponin levels in the setting of renal insufficiency in this 82-year-old white male with a history of peripheral vascular disease, bladder cancer, cerebrovascular accidents, chronic renal insufficiency, coronary artery disease, hypertension. The patient has had no recent chest pain symptoms. EKGs showed no significant changes from previous EKGs. CKs are negative for myocardial infarction,and all less than 50. His blood pressures have been very suboptimal. At this point, he is also a poor candidate for aggressive invasive cardiac evaluation. His functional status is also poor. In addition, he has ongoing renal insufficiency increasing his risk of dye-induced renal failure. RECOMMENDATIONS: 1. Continued medical therapy of his coronary artery disease. Optimize his Coreg and isosorbide dosing. 2. Optimize blood pressure control long-term. 3. Continue aspirin and Plavix. 4. We will followup as needed. MD DANICA Johnson/STANISLAV , 04:58 PM , 05:22 PM CHRISSY
[2018-02-17] MEDS: amLODIPine BESYLATE 5 MG TAB PO SCH (17:30)
[2018-02-17] MEDS: PRAVASTATIN SOD 20 MG TAB PO SCH (21:03)
[2018-02-17] MEDS: CARVEDILOL 12.5 MG TAB PO SCH (21:03)
[2018-02-18] VITALS (12 sets, daily range): BP systolic 110–143; BP diastolic 58–77; PULSE 67–87; RESP 14–20; TEMP 97.3–99.7; O2SAT 93–97
[2018-02-18] MEDS: SODIUM CHLOR 0.9% 1000 ML INJ 1,000 ML IV SCH ×2 (03:05→18:14)
[2018-02-18] MEDS: ISOSORBIDE MONONITRATE 30 MG CR TAB (IMDUR) PO SCH (06:36)
[2018-02-18 07:15] LABS: BASOPHIL % 0.2 % (0.0-2.0); EOSINOPHIL # 0.2 TH/MM3 (0-0.4); EOSINOPHIL % 1.3 % (0.0-4.0); HEMATOCRIT 31.8 % (39.0-51.0); HEMOGLOBIN 10.9 GM/DL (13.0-17.0); LYMPHOCYTE # 0.9 TH/MM3 (1.0-4.8); MEAN CELL VOLUME 88.7 FL (80.0-100.0); MEAN CORPUSCULAR HEMOGLOBIN 30.5 PG (27.0-34.0); MEAN CORPUSCULAR HGB CONC 34.4 % (32.0-36.0); MEAN PLATELET VOLUME 8.3 FL (7.0-11.0); MONO % 7.1 % (0.0-8.0); MONOCYTE # 0.9 TH/MM3 (0-0.9); NEUT % 84.4 % (16.0-70.0); PLATELET COUNT 102 TH/MM3 (150-450); RED BLOOD COUNT 3.59 MIL/MM3 (4.50-5.90); RED CELL DISTRIBUTION WIDTH 13.3 % (11.6-17.2)
[2018-02-18 07:44] LABS: ALBUMIN 2.5 GM/DL (3.4-5.0); ALT (GPT) 17 U/L (12-78); AST (GOT) 15 U/L (15-37); BICARBONATE 21.1 MEQ/L (21.0-32.0); BLOOD UREA NITROGEN 28 MG/DL (7-18); CALCIUM 8.6 MG/DL (8.5-10.1); CHLORIDE 111 MEQ/L (98-107); CHOLESTEROL 131 MG/DL (120-200); CREATININE 1.85 MG/DL (0.60-1.30); GLOMERULAR FILTRATION RATE 35 ML/MIN (>89); GLUCOSE,RANDOM 116 MG/DL (74-106); SODIUM (NA) 141 MEQ/L (136-145); TRIGLYCERIDES 103 MG/DL (42-150)
[2018-02-18 08:03] LABS: ALKALINE PHOSPHATASE 127 U/L (45-117); CHOLESTEROL/ HDL RATIO 4.62 RATIO; HDL CHOLESTEROL 28.3 MG/DL (40.0-60.0); LDL CHOLESTEROL 82 MG/DL (0-99); TOTAL BILIRUBIN ADULT 0.6 MG/DL (0.2-1.0); TOTAL PROTEIN 7.2 GM/DL (6.4-8.2)
[2018-02-18] MEDS: SODIUM CHLORIDE 0.9% FLUSH 10 ML FLUSH IV FLUSH SCH ×2 (09:00→22:34)
[2018-02-18] MEDS: REMOVE OLD PATCH T-DERMAL SCH (09:00)
[2018-02-18] MEDS: NICOTINE 14 MG/24 HR PATCH T-DERMAL SCH (09:02)
[2018-02-18] MEDS: CLOPIDOGREL 75 MG TAB PO SCH (09:03)
[2018-02-18] MEDS: amLODIPine BESYLATE 5 MG TAB PO SCH (09:03)
[2018-02-18] MEDS: CARVEDILOL 12.5 MG TAB PO SCH ×2 (09:03→22:33)
[2018-02-18] MEDS: cefTRIAXone INJ 1,000 MG in SODIUM CHLORIDE 0.9% INJ 100 ML IV SCH (09:03)
[2018-02-18] MEDS: DOCUSATE SODIUM 50 MG/SENNA 8.6 MG TAB PO SCH ×2 (09:04→22:33)
[2018-02-18] MEDS: HEPARIN SODIUM - SQ 10,000 UNITS/ML VIAL SQ SCH ×2 (11:54→22:33)
--- NOTE | 2018-02-18 14:20 | HHI.PR ---
Subjective Remarks Follow up sepsis/UTI 02/17/18-patient seen and examined, much more alert and oriented,currently afebrile. Daughters by the bedside February 18, 2018-patient seen and examined, states he feels weak. Currently afebrile Objective Vitals Vital Signs Date Time Temp Pulse Resp B/P (MAP) Pulse Ox O2 Delivery O2 Flow Rate FiO2 02/18/18 11:02 98.3 71 16 113/60 (77) 93 02/18/18 07:29 97.8 80 16 141/73 (95) 95 02/18/18 06:28 98.2 74 16 143/73 (96) 97 02/18/18 04:51 99.7 87 16 134/77 (96) 94 02/18/18 03:05 81 02/18/18 00:22 98.0 81 20 138/74 (95) 95 02/17/18 23:39 79 02/17/18 21:07 91 99 02/17/18 20:15 93 02/17/18 18:35 91 16 160/80 (106) 96 02/17/18 17:31 168/85 (112) 96 02/17/18 16:42 97.3 96 24 173/123 (140) 98 02/17/18 15:37 104 I/O 02/17/18 02/17/18 02/17/18 02/18/18 02/18/18 02/18/18 07:00 15:00 23:00 07:00 15:00 23:00 Intake Total 780 ml 100 ml 1000 ml 300 ml Output Total 420 ml 1000 ml 550 ml 175 ml Balance 360 ml 100 ml -1000 ml 450 ml 125 ml Intake Oral 200 ml IV Total 780 ml 100 ml 1000 ml 100 ml Output Urine Total 420 ml 1000 ml 550 ml 175 ml # Bowel Movements 2 Result Diagram: 02/18/18 0552 02/18/18 0552 Imaging Last Impressions Head CT 02/16/182036 Signed Impressions: Service Date/Time: Friday, February 16, 2018 21:06 - CONCLUSION: No acute intracranial abnormality. Atrophy and chronic white matter changes. Kareem Galicia MD Chest X-Ray 02/16/182036 Signed Impressions: Service Date/Time: Friday, February 16, 2018 21:01 - CONCLUSION: No acute cardiopulmonary disease demonstrated. Kareem Galicia MD Lumbar Spine X-Ray 02/16/18 0000 Signed Impressions: Service Date/Time: Friday, February 16, 2018 22:10 - CONCLUSION: Mid and lower lumbar degenerative changes as above. No fracture or subluxation. Kareem Galicia MD Hip and Pelvis X-Ray 02/16/18 0000 Signed Impressions: Service Date/Time: Friday, February 16, 2018 22:08 - CONCLUSION: Normal radiographic appearance of the bony pelvis and right hip. Kareem Galicia MD Objective Remarks GENERAL: NAD SKIN: Warm and dry. HEAD: Normocephalic. EYES: No scleral icterus. No injection or drainage. NECK: Supple, trachea midline. No JVD or lymphadenopathy. CARDIOVASCULAR: Regular rate and rhythm without murmurs, gallops, or rubs. RESPIRATORY: Breath sounds equal bilaterally. No accessory muscle use. GASTROINTESTINAL: Abdomen soft, non-tender, nondistended. MUSCULOSKELETAL: No cyanosis, or edema. BACK: Nontender without obvious deformity. No CVA tenderness. A/P Problem List: (1) Sepsis ICD Code: A41.9 - Sepsis, unspecified organism (2) UTI (urinary tract infection) ICD Code: N39.0 - Urinary tract infection, site not specified Status: Acute Assessment and Plan 82 years old man with 1. Sepsis/Urosepsis/indwelling suprapubic catheter Urine culture positive for Klebsiella pneumonia Continue with Rocephin 2. Elevated troponin EKG significant for normal sinus rhythm with LVH, no ST segment elevations or depressions, Initial troponin 0.08, troponin in November 0.22 Suspect elevated troponin is baseline Appreciate input from cardiology Advise continue current medical management as patient not a candidate for any invasive procedure 3. Coronary artery disease Status post stent placement Continue Plavix 4. Chronic kidney disease Avoid all nephrotoxic drugs Monitor renal function IV fluid hydration 5. Hyperlipidemia Continue home medications 6. Hypokalemia Give potassium 75 mEq 1 now and monitor 7. Global deconditioning PT to treat any above Problem Qualifiers (1) UTI (urinary tract infection): Qualified Codes: N30.00 - Acute cystitis without hematuria Peterson Fonseca MD Feb 18, 2018 14:20
[2018-02-18] MEDS ORDERED: POTASSIUM CHLORIDE 25 MEQ EFFERVESCENT TAB PO ONE (15:00)
[2018-02-18] MEDS ORDERED: RESP: ALBUTEROL 2.5 MG/IPRATROPIUM 0.5 MG NEB (PRN) NEB (15:00)
[2018-02-18] MEDS: PRAVASTATIN SOD 20 MG TAB PO SCH (22:33)
[2018-02-19] VITALS (10 sets, daily range): BP systolic 126–163; BP diastolic 62–92; PULSE 62–89; RESP 14–21; TEMP 97.3–98.8; O2SAT 95–98
[2018-02-19 06:13] LABS: AUTOMATED NEUTROPHIL # 7.7 TH/MM3 (1.8-7.7); BASOPHIL % 0.2 % (0.0-2.0); EOSINOPHIL # 0.2 TH/MM3 (0-0.4); EOSINOPHIL % 2.4 % (0.0-4.0); HEMATOCRIT 28.4 % (39.0-51.0); HEMOGLOBIN 9.9 GM/DL (13.0-17.0); LYMPH % 11.4 % (9.0-44.0); LYMPHOCYTE # 1.1 TH/MM3 (1.0-4.8); MEAN CELL VOLUME 88.4 FL (80.0-100.0); MEAN CORPUSCULAR HEMOGLOBIN 30.8 PG (27.0-34.0); MEAN CORPUSCULAR HGB CONC 34.8 % (32.0-36.0); MEAN PLATELET VOLUME 8.4 FL (7.0-11.0); MONO % 7.2 % (0.0-8.0); MONOCYTE # 0.7 TH/MM3 (0-0.9); NEUT % 78.8 % (16.0-70.0); PLATELET COUNT 114 TH/MM3 (150-450); RED BLOOD COUNT 3.21 MIL/MM3 (4.50-5.90); RED CELL DISTRIBUTION WIDTH 13.6 % (11.6-17.2); WHITE BLOOD COUNT 9.8 TH/MM3 (4.0-11.0)
[2018-02-19] MEDS: ISOSORBIDE MONONITRATE 30 MG CR TAB (IMDUR) PO SCH (06:27)
[2018-02-19 06:42] LABS: BICARBONATE 20.6 MEQ/L (21.0-32.0); CALCIUM 8.8 MG/DL (8.5-10.1); CREATININE 1.78 MG/DL (0.60-1.30)
[2018-02-19] MEDS ORDERED: NITROGLYCERIN 0.4 MG SL 25 TABS/BTL SL PRN (08:15)
[2018-02-19] MEDS: SODIUM CHLOR 0.9% 1000 ML INJ 1,000 ML IV SCH ×2 (08:48→23:43)
[2018-02-19] MEDS: DOCUSATE SODIUM 50 MG/SENNA 8.6 MG TAB PO SCH ×2 (08:49→20:24)
[2018-02-19] MEDS: SODIUM CHLORIDE 0.9% FLUSH 10 ML FLUSH IV FLUSH SCH ×2 (08:49→20:34)
[2018-02-19] MEDS: CARVEDILOL 12.5 MG TAB PO SCH ×2 (08:49→20:24)
[2018-02-19] MEDS: REMOVE OLD PATCH T-DERMAL SCH (08:49)
[2018-02-19] MEDS: cefTRIAXone INJ 1,000 MG in SODIUM CHLORIDE 0.9% INJ 100 ML IV SCH (08:49)
[2018-02-19] MEDS: CLOPIDOGREL 75 MG TAB PO SCH (08:49)
[2018-02-19] MEDS: amLODIPine BESYLATE 5 MG TAB PO SCH (08:49)
[2018-02-19] MEDS: NICOTINE 14 MG/24 HR PATCH T-DERMAL SCH (08:49)
[2018-02-19] MEDS: ASPIRIN 81 MG CHEW TAB CHEW SCH (09:00)
--- NOTE | 2018-02-19 11:54 | HHI.PR ---
Subjective Remarks F/U sepsis and UTI. Pt w/o complaints seen with daughter concerned about new confusion and visual hallucinations. Confirms he is not a drinker not on benzos or narcotics. Discussed with Objective Vitals Vital Signs Date Time Temp Pulse Resp B/P (MAP) Pulse Ox O2 Delivery O2 Flow Rate FiO2 02/19/18 08:00 98.8 75 18 159/72 (101) 95 02/19/18 04:00 98.4 72 16 134/67 (89) 96 02/19/18 03:55 72 02/19/18 00:00 97.3 62 14 126/62 (83) 95 02/19/18 00:00 Room Air 02/19/18 00:00 78 02/18/18 22:25 97.9 73 14 129/66 (87) 96 02/18/18 20:08 99.5 74 18 110/58 (75) 97 02/18/18 15:52 97.3 69 16 132/65 (87) 95 02/18/18 15:20 67 I/O 02/18/18 02/18/18 02/18/18 02/19/18 02/19/18 02/19/18 07:00 15:00 23:00 07:00 15:00 23:00 Intake Total 1000 ml 540 ml Output Total 550 ml 175 ml 1300 ml Balance 450 ml 365 ml -1300 ml Intake Oral 440 ml IV Total 1000 ml 100 ml Output Urine Total 550 ml 175 ml 1300 ml # Bowel Movements 2 Result Diagram: 02/19/18 0415 02/19/18 0415 Imaging Last Impressions Head CT 02/16/182036 Signed Impressions: Service Date/Time: Friday, February 16, 2018 21:06 - CONCLUSION: No acute intracranial abnormality. Atrophy and chronic white matter changes. Kareem Galicia MD Chest X-Ray 02/16/182036 Signed Impressions: Service Date/Time: Friday, February 16, 2018 21:01 - CONCLUSION: No acute cardiopulmonary disease demonstrated. Kareem Galicia MD Lumbar Spine X-Ray 02/16/18 0000 Signed Impressions: Service Date/Time: Friday, February 16, 2018 22:10 - CONCLUSION: Mid and lower lumbar degenerative changes as above. No fracture or subluxation. Kareem Galicia MD Hip and Pelvis X-Ray 02/16/18 0000 Signed Impressions: Service Date/Time: Friday, February 16, 2018 22:08 - CONCLUSION: Normal radiographic appearance of the bony pelvis and right hip. Kareem Galicia MD Objective Remarks GENERAL: NAD SKIN: Warm and dry. CARDIOVASCULAR: Regular rate and rhythm without murmurs, gallops, or rubs. RESPIRATORY: Breath sounds equal bilaterally. No accessory muscle use. GASTROINTESTINAL: Abdomen soft, non-tender, nondistended. MUSCULOSKELETAL: No cyanosis, or edema. BACK: Nontender without obvious deformity. No CVA tenderness. Awake and alert. Following simple commands denies active hallucinations A/P Problem List: (1) Sepsis ICD Code: A41.9 - Sepsis, unspecified organism (2) UTI (urinary tract infection) ICD Code: N39.0 - Urinary tract infection, site not specified Status: Acute Assessment and Plan 82 years old man with 1. Sepsis 2/2 UTI Urine culture positive for Klebsiella pneumonia Continue with Rocephin 2. Elevated troponin EKG significant for normal sinus rhythm with LVH, no ST segment elevations or depressions, Initial troponin 0.08, troponin in November 0.22 Suspect elevated troponin is baseline Appreciate input from cardiology imdur increased, consider tirtating coreg Advise continue current medical management as patient not a candidate for any invasive procedure 3. Coronary artery disease Status post stent placement Continue Plavix 4. Chronic kidney disease stage 3 Avoid all nephrotoxic drugs Monitor renal function IV fluid hydration 5. Hyperlipidemia Continue home medications 6. Hypokalemia Give potassium 75 mEq 1 now and monitor 7. Global deconditioning PT to treat any above 8. Encephalopathy could be from sepsis, sleep deprivation or meds. Rpt HCT check EEG. Dw pharmacy dc nicotine patch. 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
[2018-02-19] MEDS: HEPARIN SODIUM - SQ 10,000 UNITS/ML VIAL SQ SCH ×2 (12:23→23:43)
--- NOTE | 2018-02-19 18:58 | RADRPT ---
EXAM DATE/TIME: 02/19/2018 18:49 [facility] COMPARISON: CT BRAIN W/O CONTRAST, February 16, 2018, 21:06. INDICATIONS : Altered mental status. RADIATION DOSE: 38.89 CTDIvol (mGy) MEDICAL HISTORY : Carcinoma, bladder. Cardiovascular disease SURGICAL HISTORY : None. ENCOUNTER: Initial ACUITY: 1 day PAIN SCALE: Non-responsive LOCATION: cranial TECHNIQUE: Multiple contiguous axial images were obtained of the head. Using automated exposure control and adj ustment of the mA and/or kV according to patient size, radiation dose was kept as low as reasonably a chievable to obtain optimal diagnostic quality images. DICOM format image data is available electro nically for review and comparison. FINDINGS: CEREBRUM: The ventricles are normal for age. Cerebral atrophy. No evidence of midline shift, mass lesion, hemor rhage or acute infarction. No extra-axial fluid collections are seen. POSTERIOR FOSSA: The cerebellum and brainstem are intact. The 4th ventricle is midline. The cerebellopontine angle i s unremarkable. EXTRACRANIAL: The visualized portion of the orbits is intact. SKULL: The calvaria is intact. No evidence of skull fracture. CONCLUSION: 1. Cerebral atrophy. 2. No acute intracranial abnormality. Peterson Dahl MD on February 19, 2018 at 18:54 Board Certified Radiologist. This report was verified electronically.
[2018-02-19] MEDS: PRAVASTATIN SOD 20 MG TAB PO SCH (20:24)
[2018-02-20] VITALS (9 sets, daily range): BP systolic 123–157; BP diastolic 63–83; PULSE 69–78; RESP 17–20; TEMP 97.5–98.8; O2SAT 95–97
[2018-02-20] MEDS: ISOSORBIDE MONONITRATE 30 MG CR TAB (IMDUR) PO SCH (06:07)
--- NOTE | 2018-02-20 08:44 | HHI.PR ---
Subjective Remarks Follow-up encephalopathy. Repeat head CT unremarkable. EEG pending. Patient has no complaints he is more conversant but still not at his baseline discussed with family and nursing Objective Vitals Vital Signs Date Time Temp Pulse Resp B/P (MAP) Pulse Ox O2 Delivery O2 Flow Rate FiO2 02/20/18 04:00 Room Air 02/20/18 00:10 76 02/20/18 00:00 Room Air 02/20/18 00:00 97.5 78 19 157/83 (107) 96 02/19/18 20:25 Room Air 02/19/18 20:24 78 02/19/18 20:00 98.0 89 21 163/92 (115) 98 02/19/18 16:12 73 02/19/18 16:00 97.8 73 18 128/67 (87) 98 02/19/18 12:00 72 02/19/18 12:00 97.8 73 18 139/66 (90) 96 02/19/18 08:51 81 I/O 02/19/18 02/19/18 02/19/18 02/20/18 02/20/18 02/20/18 07:00 15:00 23:00 07:00 15:00 23:00 Intake Total 1661 ml Output Total 1300 ml 1025 ml Balance -1300 ml 636 ml Intake Oral 120 ml IV Total 1541 ml Output Urine Total 1300 ml 1025 ml # Voids 2 # Bowel Movements 1 Result Diagram: 02/19/18 0415 02/19/18 0415 Imaging Last Impressions Head CT 02/19/18 0000 Signed Impressions: Service Date/Time: Monday, February 19, 2018 18:49 - CONCLUSION: 1. Cerebral atrophy. 2. No acute intracranial abnormality. Peterson Dahl MD Chest X-Ray 02/16/182036 Signed Impressions: Service Date/Time: Friday, February 16, 2018 21:01 - CONCLUSION: No acute cardiopulmonary disease demonstrated. Kareem Galicia MD Lumbar Spine X-Ray 02/16/18 0000 Signed Impressions: Service Date/Time: Friday, February 16, 2018 22:10 - CONCLUSION: Mid and lower lumbar degenerative changes as above. No fracture or subluxation. Kareem Galicia MD Hip and Pelvis X-Ray 02/16/18 0000 Signed Impressions: Service Date/Time: Friday, February 16, 2018 22:08 - CONCLUSION: Normal radiographic appearance of the bony pelvis and right hip. Kareem Galicia MD Objective Remarks GENERAL: NAD SKIN: Warm and dry. CARDIOVASCULAR: Regular rate and rhythm without murmurs, gallops, or rubs. RESPIRATORY: Breath sounds equal bilaterally. No accessory muscle use. GASTROINTESTINAL: Abdomen soft, non-tender, nondistended. MUSCULOSKELETAL: No cyanosis, or edema. BACK: Nontender without obvious deformity. No CVA tenderness. Awake and alert. Oriented to person only. Following simple commands denies active hallucinations A/P Problem List: (1) Sepsis ICD Code: A41.9 - Sepsis, unspecified organism (2) UTI (urinary tract infection) ICD Code: N39.0 - Urinary tract infection, site not specified Status: Acute Assessment and Plan 82 years old man with 1. Sepsis 2/2 UTI Urine culture positive for Klebsiella pneumonia Stable switch to Cipro 2. Elevated troponin EKG significant for normal sinus rhythm with LVH, no ST segment elevations or depressions, Initial troponin 0.08, troponin in November 0.22 Suspect elevated troponin is baseline Appreciate input from cardiology imdur increased, consider titrating coreg Advise continue current medical management as patient not a candidate for any invasive procedure 3. Coronary artery disease Status post stent placement Continue Plavix 4. Chronic kidney disease stage 3 Avoid all nephrotoxic drugs Monitor renal function Improving discontinue IV fluid hydration if tolerating p.o. 5. Hyperlipidemia Continue home medications 6. Hypokalemia Give potassium 75 mEq 1 now and monitor 7. Global deconditioning PT to treat any above 8. Encephalopathy could be from sepsis, sleep deprivation or meds. Rpt HCT unremarkable pending EEG. Obtain MRI. Dw pharmacy dc nicotine patch. 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
[2018-02-20] MEDS: cefTRIAXone INJ 1,000 MG in SODIUM CHLORIDE 0.9% INJ 100 ML IV SCH (09:48)
[2018-02-20] MEDS: CARVEDILOL 12.5 MG TAB PO SCH (09:49)
[2018-02-20] MEDS: CLOPIDOGREL 75 MG TAB PO SCH (09:49)
[2018-02-20] MEDS: amLODIPine BESYLATE 5 MG TAB PO SCH (09:49)
[2018-02-20] MEDS: ASPIRIN 81 MG CHEW TAB CHEW SCH (09:49)
[2018-02-20] MEDS: DOCUSATE SODIUM 50 MG/SENNA 8.6 MG TAB PO SCH ×2 (09:49→21:00)
[2018-02-20] MEDS: REMOVE OLD PATCH T-DERMAL SCH (09:50)
[2018-02-20] MEDS: SODIUM CHLORIDE 0.9% FLUSH 10 ML FLUSH IV FLUSH SCH ×3 (09:50→21:00)
[2018-02-20] MEDS: CIPROFLOXACIN 250 MG TAB PO SCH ×2 (11:15→21:00)
[2018-02-20] MEDS ORDERED: CIPR250T52 PO (14:39)
[2018-02-20] MEDS ORDERED: CARV12.5 PO (14:39)
[2018-02-20] MEDS ORDERED: ISOS30TA3 PO (14:39)
[2018-02-20] MEDS ORDERED: AMLO5 PO (14:39)
--- NOTE | 2018-02-20 14:40 | HHI.DCPOC ---
Discharge Care Plan Diagnosis: (1) Sepsis (2) UTI (urinary tract infection) Your Health Problems Are: Difficulty with ADL Exercise Tolerance Goals to Promote Your Health * To prevent worsening of your condition and complications * To maintain your health at the optimal level Directions to Meet Your Goals Take your medications as prescribed Follow your dietary instruction Follow activity as directed Keep your appointments as scheduled Take your immunizations and boosters as scheduled If your symptoms worsen call your PCP, if no PCP go to Urgent Care Center or Emergency Room Smoking is Dangerous to Your Health. Avoid second hand smoke Call the 24-hour hour crisis hotline for domestic abuse at Kirk Dloan MD Feb 20, 2018 14:40
--- NOTE | 2018-02-20 15:00 | RADRPT ---
EXAM DATE/TIME: 02/20/2018 13:42 [facility] COMPARISON: CT BRAIN W/O CONTRAST, February 19, 2018, 18:49. INDICATIONS : Altered mental status. Weakness. MEDICAL HISTORY : Carcinoma, bladder. Cardiovascular disease Hypercholesterolemia. SURGICAL HISTORY : Abdominal aortic aneurysm repair. ENCOUNTER: Subsequent ACUITY: 4-6 days PAIN SCORE: 0/10 LOCATION: cranial TECHNIQUE: Multiplanar, multisequence MRI of the brain was performed without contrast. FINDINGS: CEREBRUM: The ventricles and cortical sulci are widened. There are numerous focal small areas of increased sign al seen in the diffusion-weighted is at the periphery of the cerebral hemispheres bilaterally. There is a few areas of abnormal signal in the diffusion-weighted is seen in the periventricular regions. These are consistent with numerous small acute infarcts. There are several areas that showed low sig nal on the SWI sequences which could represent small component of prior or petechial hemorrhage withi n these areas. These areas of signal abnormality in the SWI images measures more than 5 mm. No eviden ce of midline shift. No extraaxial fluid collections are seen. The pituitary gland and suprasellar cistern are normal in configuration. WHITE MATTER: There is increased signal in the periventricular white matter. POSTERIOR FOSSA: There is a focal linear area of abnormal signal on the diffusion-weighted is seen at the left cerebel lar hemisphere. The remaining aspects of the cerebellum are intact. There is increased increased sig nal on the T2-weighted images within the inferior midbrain likely related to an area of demyelination . The 4th ventricle is midline. The cerebellopontine angle is unremarkable. The cerebellar tonsils a re normal in position. DIFFUSION IMAGING: Again noted are the numerous small focal areas of abnormal diffusion signal in the periphery of the c erebral hemispheres, in the periventricular regions, and the left cerebellar hemisphere. EXTRACRANIAL: The visualized portions of the orbits and paranasal sinuses are unremarkable. CONCLUSION: 1. Numerous areas of abnormal signal on the diffusion weighted images of the periphery of the cerebra l hemispheres, in the periventricular regions, and a linear focus of the left cerebellar hemisphere c onsistent with numerous small areas of acute infarction. 2. Abnormal signal in the SWI images likely related to prior areas of hemorrhage or potentially small areas of petechial hemorrhage. A large lauren hemorrhage with mass effect is not seen. Kareem Hollins MD on February 20, 2018 at 14:48 Board Certified Radiologist. This report was verified electronically.
[2018-02-20] MEDS ORDERED: PRAV20TA PO (15:24)
[2018-02-20] MEDS ORDERED: LEVOTHYROXINE SODIUM 100 MCG VIAL IV PUSH ONE (15:30)
[2018-02-20] MEDS ORDERED: DEXTROSE 50% IN WATER 50 ML VIAL(D50) IV PUSH PRN ×2 (15:30→19:15)
[2018-02-20] MEDS ORDERED: GLUCAGON 1 MG/ML VIAL OTHER PRN ×2 (15:30→19:15)
[2018-02-20] MEDS ORDERED: ENALAPRILAT 1.25 MG/ML VIAL IV PUSH PRN (15:30)
[2018-02-20] MEDS: NS + KCL 20 MEQ INJ 1,000 ML IV SCH (15:53)
--- NOTE | 2018-02-20 17:08 | RADRPT ---
EXAM DATE/TIME: 02/20/2018 15:25 [facility] COMPARISON: No previous studies available for comparison. INDICATIONS : CVA. MEDICAL HISTORY : Hypercholesterolemia. Hypertension. GA. CVA. Renal failure. UTI. Hernia repair. Bladder cancer. SURGICAL HISTORY : Abdominal aortic aneurysm repair. AAA stents. Hernia repair. Bladder removed. ENCOUNTER: Subsequent ACUITY: 1 day PAIN SCORE: 0/10 LOCATION: Bilateral neck PEAK SYSTOLIC VELOCITIES (cm/sec): ICA/CCA RATIO: Right: 1.3 Left: 1.1 ICA: Right: 75 Left: 67 CCA: Right: 59 Left: 64 ECA: Right: 81 Left: 92 VERTEBRAL: Right: 65 antegrade Left: 86 antegrade Elevated flow velocities and ICA/CCA ratios have been found to correlate with increased degrees of vessel stenosis, calculated as percentage of diameter relative to a normal segment of distal ICA/CCA FINDINGS: RIGHT CAROTID: Mild plaque is seen at the carotid bulb regions. No significant stenosis is visualized. The waveform s are within normal limits. LEFT CAROTID: Mild plaque is seen at the carotid bulb regions. No significant stenosis is visualized. The waveform s are within normal limits. VERTEBRAL ARTERIES: Antegrade flow is seen in both vertebral arteries. MISCELLANEOUS: None. CONCLUSION: Mild carotid bulb plaque without significant stenosis seen. Kareem Hollins MD on February 20, 2018 at 17:03 Board Certified Radiologist. This report was verified electronically.
[2018-02-20] MEDS ORDERED: SODIUM CHLORIDE 0.9% FLUSH 10 ML FLUSH IV FLUSH PRN (19:15)
[2018-02-20] MEDS: ASPIRIN 325 MG TAB PO SCH (19:15)
--- NOTE | 2018-02-20 19:20 | MB ---
cc: Perez Salinas MD, PhD DATE: 02/20/2018 REASON FOR CONSULTATION: Stroke. HISTORY OF PRESENT ILLNESS: Mr. Lopes is an 82-year-old man who developed significant confusion as well as generalized weakness, but no focal deficits. Apparently, he was found to have a urinary tract infection. He has a suprapubic catheter in place due to history of bladder cancer. He had an MRI of the brain performed, which showed multiple areas of abnormal signal on diffusion imaging consistent with acute strokes in bilateral cerebral hemispheres, in the periventricular region, left cerebellar hemisphere, also prior areas of hemorrhage. Small areas of petechial hemorrhage are identified, but there is no large lauren hemorrhage. He had a carotid ultrasound, which revealed mild narrowing, but no significant stenosis. PAST MEDICAL HISTORY: He has a history of stroke many years ago causing left-sided weakness, from which he fully recovered. He has a history of bladder cancer with suprapubic catheter, hyperlipidemia, coronary artery disease, cardiac stent placement 4 years ago. MEDICATIONS AT HOME: Ventolin, triamcinolone, pravastatin, folic acid, vitamin D3, iron sulfate, vitamin B12, Plavix 75 mg daily, Nitrostat, Coreg, aspirin 81 mg daily. NEUROLOGIC EXAMINATION: VITAL SIGNS: Blood pressure is 154/79, pulse of 69, respiratory rate is 20, temperature 97 degrees. HIGHER CORTICAL FUNCTION: The patient is lethargic but easy to arouse. He is oriented x 2. He has poor recall for recent events. He could follow simple commands. CRANIAL NERVES: Intact. MOTOR: He has generalized weakness, but no definite focal weakness that I can find. LABORATORY DATA: White count 9800, hemoglobin 9.9, hematocrit 28%, platelet count 114,000. PT 11.4, INR 1.1, aPTT 28.5. Sodium is 142, potassium 3.7, chloride 111, CO2 of 20.6, BUN is 27, creatinine 1.78, GFR is 37, glucose 98, LDL 82, HDL 28, cholesterol . 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 RECOMMENDATION: Would not recommend full anticoagulation at this time given the small amount of petechial hemorrhage. Recommend therapy with aspirin 325 mg daily. Also, check echocardiogram. Monitor cardiac telemetry to rule out atrial fibrillation. If cardiogenic embolus identified in the future, may consider anticoagulation, although he may be high risk given his age. Perez Salinas MD, PhD JANELLE/SB , 07:04 PM , 07:19 PM
[2018-02-20] MEDS: PRAVASTATIN SOD 20 MG TAB PO SCH (21:00)
[2018-02-20] MEDS: INSULIN ASPART SUPPLEMENTAL SCALE SQ SCH (21:00)
[2018-02-21] VITALS (10 sets, daily range): BP systolic 153–193; BP diastolic 72–90; PULSE 74–86; RESP 16–20; TEMP 97.6–98.5; O2SAT 95–97
[2018-02-21] MEDS: NS + KCL 20 MEQ INJ 1,000 ML IV SCH ×2 (05:28→22:48)
[2018-02-21] MEDS: INSULIN ASPART SUPPLEMENTAL SCALE SQ SCH ×4 (08:00→20:51)
[2018-02-21] MEDS: FERROUS SULFATE 325 MG (65 MG ELEMENTAL IRON) TAB PO SCH ×2 (08:15→11:00)
[2018-02-21] MEDS: DOCUSATE SODIUM 50 MG/SENNA 8.6 MG TAB PO SCH ×2 (08:56→20:50)
[2018-02-21] MEDS: CIPROFLOXACIN 250 MG TAB PO SCH ×3 (08:59→20:51)
[2018-02-21] MEDS: SODIUM CHLORIDE 0.9% FLUSH 10 ML FLUSH IV FLUSH SCH ×4 (08:59→20:52)
[2018-02-21] MEDS: ASPIRIN 325 MG TAB PO SCH ×2 (08:59→11:00)
[2018-02-21] MEDS: REMOVE OLD PATCH T-DERMAL SCH (09:00)
--- NOTE | 2018-02-21 13:02 | HHI.PR ---
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 per MRI will get echocardiogram Patient may need ROMULO Discussed with RN and patient and case management and family Consult physical therapy occupational therapy and speech therapy Objective Vitals Vital Signs Date Time Temp Pulse Resp B/P (MAP) Pulse Ox O2 Delivery O2 Flow Rate FiO2 02/21/18 11:30 98.2 81 20 153/85 (107) 97 02/21/18 08:00 Room Air 02/21/18 07:59 74 02/21/18 07:30 98.5 80 20 164/88 (113) 96 02/21/18 04:00 74 02/21/18 04:00 Room Air 02/21/18 00:53 98.2 78 17 156/72 (100) 95 02/21/18 00:00 75 02/21/18 00:00 Room Air 02/20/18 22:00 156/68 (97) 02/20/18 21:40 Room Air 02/20/18 21:27 98.4 74 17 97 02/20/18 20:00 74 02/20/18 19:56 95 21 02/20/18 16:00 96 Room Air 02/20/18 16:00 69 02/20/18 16:00 97.7 69 20 154/79 (104) 96 I/O 02/20/18 02/20/18 02/20/18 02/21/18 02/21/18 02/21/18 07:00 15:00 23:00 07:00 15:00 23:00 Intake Total 1661 ml 1000 ml Output Total 1025 ml 300 ml 300 ml 1250 ml Balance 636 ml -300 ml -300 ml -250 ml Intake Oral 120 ml IV Total 1541 ml 1000 ml Output Urine Total 1025 ml 300 ml 300 ml 1250 ml # Voids 2 # Bowel Movements 1 Result Diagram: 02/19/18 0415 02/19/18 0415 Other Results Laboratory Tests Test 02/19/18 04:15 White Blood Count 9.8 TH/MM3 Red Blood Count 3.21 MIL/MM3 Hemoglobin 9.9 GM/DL Hematocrit 28.4 % Mean Corpuscular Volume 88.4 FL Mean Corpuscular Hemoglobin 30.8 PG Mean Corpuscular Hemoglobin Concent 34.8 % Red Cell Distribution Width 13.6 % Platelet Count 114 TH/MM3 Mean Platelet Volume 8.4 FL Neutrophils (%) (Auto) 78.8 % Lymphocytes (%) (Auto) 11.4 % Monocytes (%) (Auto) 7.2 % Eosinophils (%) (Auto) 2.4 % Basophils (%) (Auto) 0.2 % Neutrophils # (Auto) 7.7 TH/MM3 Lymphocytes # (Auto) 1.1 TH/MM3 Monocytes # (Auto) 0.7 TH/MM3 Eosinophils # (Auto) 0.2 TH/MM3 Basophils # (Auto) 0.0 TH/MM3 CBC Comment DIFF FINAL Differential Comment Blood Urea Nitrogen 27 MG/DL Creatinine 1.78 MG/DL Random Glucose 98 MG/DL Calcium Level 8.8 MG/DL Sodium Level 142 MEQ/L Potassium Level 3.7 MEQ/L Chloride Level 111 MEQ/L Carbon Dioxide Level 20.6 MEQ/L Anion Gap 10 MEQ/L Estimat Glomerular Filtration Rate 37 ML/MIN Imaging Last Impressions Carotid Artery Ultrasound 02/20/18 Signed Impressions: Service Date/Time: Tuesday, February 20, 2018 15:25 - CONCLUSION: Mild carotid bulb plaque without significant stenosis seen. Kareem Hollins MD Brain MRI 02/20/18 Signed Impressions: Service Date/Time: Tuesday, February 20, 2018 13:42 - CONCLUSION: 1. Numerous areas of abnormal signal on the diffusion weighted images of the periphery of the cerebral hemispheres, in the periventricular regions, and a linear focus of the left cerebellar hemisphere consistent with numerous small areas of acute infarction. 2. Abnormal signal in the SWI images likely related to prior areas of hemorrhage or potentially small areas of petechial hemorrhage. A large lauren hemorrhage with mass effect is not seen. Kareem Hollins MD Head CT 02/19/18 Signed Impressions: Service Date/Time: Monday, February 19, 2018 18:49 - CONCLUSION: 1. Cerebral atrophy. 2. No acute intracranial abnormality. Peterson Dahl MD Chest X-Ray 02/16/182036 Signed Impressions: Service Date/Time: Friday, February 16, 2018 21:01 - CONCLUSION: No acute cardiopulmonary disease demonstrated. Kareem Galicia MD Lumbar Spine X-Ray 02/16/18 Signed Impressions: Service Date/Time: Friday, February 16, 2018 22:10 - CONCLUSION: Mid and lower lumbar degenerative changes as above. No fracture or subluxation. Kareem Galicia MD Hip and Pelvis X-Ray 02/16/18 0000 Signed Impressions: Service Date/Time: Friday, February 16, 2018 22:08 - CONCLUSION: Normal radiographic appearance of the bony pelvis and right hip. Kareem Galicia MD Objective Remarks GENERAL: Awake and alert more talkative and cooperative moving all 4 extremities following commands SKIN: Warm and dry. HEAD: Atraumatic. Normocephalic. EYES: Pupils equal and round. No scleral icterus. No injection or drainage. Extraocular muscles intact ENT: No nasal bleeding or discharge. Mucous membranes pink and moist. Tongue is midline NECK: Trachea midline. No JVD. Supple CARDIOVASCULAR: IRRegular rate and rhythm. S1-S2 no S3 or S4 RESPIRATORY: No accessory muscle use. Clear to auscultation. Breath sounds equal bilaterally. GASTROINTESTINAL: Abdomen soft, non-tender, nondistended. Hepatic and splenic margins not palpable. MUSCULOSKELETAL: Extremities without clubbing, cyanosis, or edema. No obvious deformities. NEUROLOGICAL: Awake and alert. No obvious cranial nerve deficits. Motor grossly within normal limits. 3 out of 5 muscle strength in the arms and legs. ABNormal speech. PSYCHIATRIC: INAppropriate mood and affect; insight and judgment ABnormal. Procedures EEG Medications and IVs Current Medications Sodium Chloride 500 ml @ 500 mls/hr BOLUS ONCE IV Last administered on at 21:16; Start 02/16/18 at 20:45; Stop 02/16/18 at 21:44; Status DC Ciprofloxacin/ Dextrose 200 ml @ 200 mls/hr ONCE ONCE IV Last administered on 02/16/18at 23:12; Start 02/16/18 at 22:30; Stop 02/16/18 at 23:29; Status DC Carvedilol (Coreg) 3.125 mg BID PO Last administered on 02/17/18at 09:11; Start 02/17/18 at 09:00; Stop 02/17/18 at 16:59; Status DC Clopidogrel Bisulfate (Plavix) 75 mg DAILY PO Last administered on 02/20/18at 09 :49; Start 02/17/18 at 09:00; Stop 02/20/18 at 15:15; Status DC Isosorbide Mononitrate (Imdur) 30 mg DAILY@0700 PO Last administered on 06:32; Start 02/17/18 at 07:00; Stop 02/17/18 at 16:59; Status DC Pravastatin Sodium (Pravachol) 20 mg HS PO Last administered on 02/19/18at 20:24 ; Start 02/17/18 at 21:00 Ceftriaxone Sodium 1000 mg/ Sodium Chloride 100 ml @ 200 mls/hr Q24H IV Last administered on 02/20/18 09:48; Start 02/17/18 at 09:00; Stop 02/20/18 at 11:13 ; Status DC Sodium Chloride 1,000 ml @ 70 mls/hr [id number] IV Last administered on at 23:43; Start 02/16/18 at 23:20; Stop 02/20/18 at 14:33; Status DC Sodium Chloride (NS Flush) 2 ml UNSCH PRN IV FLUSH FLUSH AFTER USING IV ACCESS ; Start 02/16/18 at 23:30 Sodium Chloride (NS Flush) 2 ml BID IV FLUSH Last administered on 02/20/18at 09: 50; Start 02/17/18 at 09:00 Acetaminophen (Tylenol) 650 mg Q4H PRN PO TEMP > 100.4; Start 02/16/18 at 23:30 Ondansetron HCl (Zofran Inj) 4 mg Q6H PRN IVP NAUSEA OR VOMITING; Start at 23:30 Heparin Sodium (Porcine) (Heparin Inj) 5,000 units Q12H SQ Last administered on 02/19/18 23:43; Start 02/16/18 at 23:30; Stop 02/20/18 at 15:15; Status DC Naloxone HCl (Narcan Inj) 0.4 mg UNSCH PRN IV PUSH SEE LABEL COMMENTS; Start at 23:30 Senna/Docusate Sodium (Herminia-Colace) 1 tab BID PO Last administered on at 09:49; Start 02/17/18 at 09:00 Magnesium Hydroxide (Milk Of Magnesia Liq) 30 ml Q12H PRN PO Mild constipation Last administered on 02/18/18at 11:54; Start 02/16/18 at 23:30 Sennosides (Senokot) 17.2 mg Q12H PRN PO Moderate constipation; Start 02/16/18 at 23:30 Bisacodyl (Dulcolax Supp) 10 mg DAILY PRN RECTAL SEVERE CONSITIPATION/ IF NPO ; Start 02/16/18 at 23:30 Lactulose (Lactulose Liq) 30 ml DAILY PRN PO SEVERE CONSITIPATION / IF PO; Start 02/16/18 at 23:30 Nicotine (Habitrol 14 Mg Patch.24 Hr) 1 patch DAILY T-DERMAL Last administered on 02/19/18at 08:49; Start 02/17/18 at 13:30; Stop 02/19/18 at 12:04; Status DC Miscellaneous Information 1 DAILY T-DERMAL Last administered on 02/21/18 09:00 ; Start 02/17/18 at 13:30 Clonidine (Catapres) 0.1 mg Q6H PRN PO SBP>160, DBP>90 Last administered on at 16:52; Start 02/17/18 at 16:00 Carvedilol (Coreg) 12.5 mg BID PO Last administered on 02/20/18 09:49; Start 02/17/18 at 21:00; Status Future Hold Isosorbide Mononitrate (Imdur) 60 mg DAILY@0700 PO Last administered on 06:07; Start 02/18/18 at 07:00; Status Future Hold Amlodipine Besylate (Norvasc) 5 mg DAILY PO Last administered on 02/20/18 09: 49; Start 02/17/18 at 17:00; Status Future Hold Potassium Bicarb/ Potassium Chloride (K-Lyte Cl Eff) 75 meq ONCE ONCE PO Last administered on 02/18/18at 15:45; Start 02/18/18 at 15:00; Stop 02/18/18 at 15:01; Status DC Albuterol/ Ipratropium (Duoneb Neb) 1 ampule Q2HR NEB PRN NEB SOB/WHEEZING; Start 02/18/18 at 15:00 Aspirin (Aspirin Chew) 81 mg DAILY CHEW Last administered on 02/20/18at 09:49; Start 02/19/18 at 09:00; Stop 02/20/18 at 15:15; Status DC Ferrous Sulfate (Ferrous Sulfate) 325 mg MoWeFr PO Last administered on at 11:00; Start 02/21/18 at 08:15 Nitroglycerin (Nitrostat Sl) 0.4 mg Q5M PRN SL CHEST PAIN; Start 02/19/18 at 08 :15 Ciprofloxacin (Cipro) 250 mg Q12HR PO Last administered on 02/21/18at 11:00; Start 02/20/18 at 11:15; Stop 03/02/18 at 11:14 Potassium Chloride/Sodium Chloride 1,000 ml @ 70 mls/hr [id number] IV Last administered on 02/21/18at 05:28; Start 02/20/18 at 15:30 Enalaprilat (Vasotec Inj) 1.25 mg Q4H PRN IV PUSH For SBP > 220 or DBP > 120; Start 02/20/18 at 15:30 Dextrose (D50w (Vial) Inj) 50 ml UNSCH PRN IV PUSH HYPOGLYCEMIA-SEE COMMENTS; Start 02/20/18 at 15:30 Glucagon (Glucagon Inj) 1 mg UNSCH PRN OTHER HYPOGLYCEMIA-SEE COMMENTS; Start 02/20/18 at 15:30 Levothyroxine Sodium (Synthroid Inj) 100 mcg ONCE ONCE IV PUSH ; Start at 15:30; Stop 02/20/18 at 15:31; Status Cancel Sodium Chloride (NS Flush) 2 ml BID IV FLUSH ; Start 02/20/18 at 21:00 Sodium Chloride (NS Flush) 2 ml UNSCH PRN IV FLUSH FLUSH AFTER USING IV ACCESS ; Start 02/20/18 at 19:15 Aspirin (Aspirin) 325 mg DAILY PO Last administered on 02/21/18at 11:00; Start 02/20/18 at 19:15 Insulin Aspart (NovoLOG SUPPLEMENTAL SCALE) 1 ACHS SQ ; Start 02/20/18 at 21:00 Dextrose (D50w (Vial) Inj) 50 ml UNSCH PRN IV PUSH HYPOGLYCEMIA-SEE COMMENTS; Start 02/20/18 at 19:15 Glucagon (Glucagon Inj) 1 mg UNSCH PRN OTHER HYPOGLYCEMIA-SEE COMMENTS; Start 02/20/18 at 19:15 A/P Problem List: (1) Sepsis ICD Code: A41.9 - Sepsis, unspecified organism (2) UTI (urinary tract infection) ICD Code: N39.0 - Urinary tract infection, site not specified Status: Acute Assessment and Plan 82 years old man with 1. Sepsis 2/2 UTI Urine culture positive for Klebsiella pneumonia Stable switch to Cipro 2. Elevated troponin EKG significant for normal sinus rhythm with LVH, no ST segment elevations or depressions, Initial troponin 0.08, troponin in November 0.22 Suspect elevated troponin is baseline Appreciate input from cardiology imdur increased, consider titrating coreg Advise continue current medical management as patient not a candidate for any invasive procedure 3. Coronary artery disease Status post stent placement Continue Plavix 4. Chronic kidney disease stage 3 Avoid all nephrotoxic drugs Monitor renal function Improving discontinue IV fluid hydration if tolerating p.o. 5. Hyperlipidemia Continue home medications 6. Hypokalemia Give potassium 75 mEq 1 now and monitor 7. Global deconditioning PT to treat any above 8. Encephalopathy could be from sepsis, sleep deprivation or meds. Rpt HCT unremarkable pending EEG. Obtain MRI. Dw pharmacy dc nicotine patch. Good sleep hygiene dw RN POSITIVE EMBOLIC CVA PER 9 MRI SHOWED CVA AND BLEED WILL NEED ECHO AND MAYBE ROMULO ANTICOAGULATION PER NEUROLOGY PT AND OT AND ST Discharge Planning PENDING IMPROVEMENT Problem Qualifiers (1) UTI (urinary tract infection): Qualified Codes: N30.00 - Acute cystitis without hematuria Demetrius Vera DO Feb 21, 2018 13:02
--- NOTE | 2018-02-21 13:15 | PQ ---
Physician Query Response Document PATIENT: JORDY OSORIO : 1935 ADMIT DATE: 02/16/2018 10:38 PM DISCH DATE: RESPONDING PROVIDER #: [email or web address] QUERY TEXT: CDS Clarification Sepsis/UTI r/t indwelling suprapubic catheter requiring treatment with Cipro IV. Other explanation of clinical findings. Unable to determine (no explanation for clinical findings). The patient's Clinical Indicators include: The medical record reflects the following clinical findings, treatment, and risk factors. * Clinical Indicators: P 103 WBC 12.1, UTI + Klebsiella Pneumoniae * Risk Factors: Sepsis, Indwelling Suprapubic catheter * Treatment: Initially with Rocephin IV then Cipro IV Please clarify and document your clinical opinion in the progress notes and discharge summary includi ng the definitive and/or presumptive diagnosis (suspected or probable), related to the above clinical findings. Please include clinical findings supporting your diagnosis. Thank you, Blanche Spence CDS: Blanche Spence Patient Unit: [id number] Contact Number: [phone] Room: [facility] Query created by: Blanche Spence on 02/21/2018 10:39 AM RESPONSE TEXT: PATIENT WAS FOUND TO HAVE KLEBSIELLA PNEUMONIAE HAS A CHRONIC SUPRAPUBIC CATHETER WAS TREATED WITH IV ROCEPHIN AND IV CIPRO. HAS LEUKOCYTOSIS AND FEVERS. Electronically signed by: Demetrius Vera 02/21/2018 1:11 PM
[2018-02-21] MEDS: cloNIDine HCL 0.1 MG TAB PO PRN (20:51)
[2018-02-21] MEDS: PRAVASTATIN SOD 20 MG TAB PO SCH (20:51)
--- NOTE | 2018-02-21 21:19 | HHI.PR ---
Review/Management Diagnosis multiple embolic strokes Plan monitor telemetry to r/o atrial fibrillation follow up echo continue asa Diagnosis/Plan: Subjective Subjective Comments No acute events reported Active Medications Current Medications Medications (Trade) Dose Ordered Sig/Breann Route Start Time Stop Time Status Last Admin (Pravachol) 20 mg HS PO 02/17/18 21:00 02/21/18 20:51 (NS Flush) 2 ml UNSCH PRN IV FLUSH 02/16/18 23:30 (NS Flush) 2 ml BID IV FLUSH 02/17/18 09:00 02/20/18 09:50 (Tylenol) 650 mg Q4H PRN PO 02/16/18 23:30 (Zofran Inj) 4 mg Q6H PRN IVP 02/16/18 23:30 (Narcan Inj) 0.4 mg UNSCH PRN IV PUSH 02/16/18 23:30 (Herminia-Colace) 1 tab BID PO 02/17/18 09:00 02/21/18 20:50 (Milk Of Magnesia Liq) 30 ml Q12H PRN PO 02/16/18 23:30 02/18/18 11:54 (Senokot) 17.2 mg Q12H PRN PO 02/16/18 23:30 (Dulcolax Supp) 10 mg DAILY PRN RECTAL 02/16/18 23:30 (Lactulose Liq) 30 ml DAILY PRN PO 02/16/18 23:30 Miscellaneous Information 1 DAILY T-DERMAL 02/17/18 13:30 02/21/18 09:00 (Catapres) 0.1 mg Q6H PRN PO 02/17/18 16:00 02/21/18 20:51 (Coreg) 12.5 mg BID PO 02/17/18 21:00 Future Hold 02/20/18 09:49 (Imdur) 60 mg DAILY@0700 PO 02/18/18 07:00 Future Hold 02/20/18 06:07 (Norvasc) 5 mg DAILY PO 02/17/18 17:00 Future Hold 02/20/18 09:49 (Duoneb Neb) 1 ampule Q2HR NEB PRN NEB 02/18/18 15:00 02/21/18 21:00 (Ferrous Sulfate) 325 mg MoWeFr PO 02/21/18 08:15 02/21/18 11:00 (Nitrostat Sl) 0.4 mg Q5M PRN SL 02/19/18 08:15 (Cipro) 250 mg Q12HR PO 02/20/18 11:15 03/02/18 11:14 02/21/18 20:51 Potassium Chloride/Sodium Chloride 1,000 ml @ 70 mls/hr [id number] IV 02/20/18 15:30 02/21/18 05:28 (Vasotec Inj) 1.25 mg Q4H PRN IV PUSH 02/20/18 15:30 (D50w (Vial) Inj) 50 ml UNSCH PRN IV PUSH 02/20/18 15:30 (Glucagon Inj) 1 mg UNSCH PRN OTHER 02/20/18 15:30 (NS Flush) 2 ml BID IV FLUSH 02/20/18 21:00 (NS Flush) 2 ml UNSCH PRN IV FLUSH 02/20/18 19:15 (Aspirin) 325 mg DAILY PO 02/20/18 19:15 02/21/18 11:00 (NovoLOG SUPPLEMENTAL SCALE) 1 ACHS SQ 02/20/18 21:00 02/21/18 20:51 (D50w (Vial) Inj) 50 ml UNSCH PRN IV PUSH 02/20/18 19:15 (Glucagon Inj) 1 mg UNSCH PRN OTHER 02/20/18 19:15 Allergies Allergies Coded Allergies penicillin G (Unverified Allergy, Severe, Swelling, 06/08/17) Exam I&O / VS 02/21/18 02/21/18 02/22/18 15:00 23:00 07:00 Intake Total 840 ml Output Total 900 ml Balance -60 ml Intake Oral 840 ml Output Urine Total 900 ml # Bowel Movements 0 Vital Signs Date Time Temp Pulse Resp B/P (MAP) Pulse Ox O2 Delivery O2 Flow Rate FiO2 02/21/18 20:43 96 21 02/21/18 16:54 98.2 86 20 164/90 (114) 96 02/21/18 11:30 98.2 81 20 153/85 (107) 97 02/21/18 08:00 Room Air 02/21/18 07:59 74 02/21/18 07:30 98.5 80 20 164/88 (113) 96 02/21/18 04:00 74 02/21/18 04:00 Room Air 02/21/18 00:53 98.2 78 17 156/72 (100) 95 02/21/18 00:00 75 02/21/18 00:00 Room Air 02/20/18 22:00 156/68 (97) 02/20/18 21:40 Room Air 02/20/18 21:27 98.4 74 17 97 Eye: PERRL, EOMI, Other Respiratory: Lungs CTA, Non-labored respirations, BS equal, Symmetrical expansion Cardiology: Normal rate, No murmur, Regular Rhythm Musculoskeletal: ROM, Tenderness Exam Comments alert, disoriented; follow only simple commands CN intact MOTOR 5/5 BUE Objective Micro and Labs Date/Time Source Procedure Growth Status 02/16/18 20:35 Blood Peripheral Aerobic Blood Culture - Final NO GROWTH IN 5 DAYS Complete 02/16/18 20:35 Blood Peripheral Anaerobic Blood Culture - Final NO GROWTH IN 5 DAYS Complete 02/16/18 20:40 Urine Random Urine Urine Culture - Final Klebsiella Pneumoniae Providencia Stuartii Complete Perez Salinas MD PhD Feb 21, 2018 21:19
[2018-02-22] VITALS (9 sets, daily range): BP systolic 160–194; BP diastolic 82–95; PULSE 70–86; RESP 16–20; TEMP 97.2–98.4; O2SAT 95–99
[2018-02-22 06:32] LABS: AUTOMATED NEUTROPHIL # 10.2 TH/MM3 (1.8-7.7); BASOPHIL % 0.3 % (0.0-2.0); EOSINOPHIL # 0.3 TH/MM3 (0-0.4); EOSINOPHIL % 2.5 % (0.0-4.0); HEMATOCRIT 28.9 % (39.0-51.0); HEMOGLOBIN 10.1 GM/DL (13.0-17.0); LYMPH % 9.1 % (9.0-44.0); LYMPHOCYTE # 1.2 TH/MM3 (1.0-4.8); MEAN CELL VOLUME 88.3 FL (80.0-100.0); MEAN CORPUSCULAR HGB CONC 35.1 % (32.0-36.0); MEAN PLATELET VOLUME 8.2 FL (7.0-11.0); MONO % 7.4 % (0.0-8.0); MONOCYTE # 0.9 TH/MM3 (0-0.9); NEUT % 80.7 % (16.0-70.0); PLATELET COUNT 133 TH/MM3 (150-450); RED BLOOD COUNT 3.27 MIL/MM3 (4.50-5.90); WHITE BLOOD COUNT 12.7 TH/MM3 (4.0-11.0)
[2018-02-22 07:02] LABS: ALBUMIN 2.5 GM/DL (3.4-5.0); AST (GOT) 21 U/L (15-37); BICARBONATE 20.2 MEQ/L (21.0-32.0); BLOOD UREA NITROGEN 26 MG/DL (7-18); CALCIUM 8.7 MG/DL (8.5-10.1); CHLORIDE 113 MEQ/L (98-107); CREATININE 1.65 MG/DL (0.60-1.30); GLOMERULAR FILTRATION RATE 40 ML/MIN (>89); GLUCOSE,RANDOM 107 MG/DL (74-106); MAGNESIUM 1.9 MG/DL (1.5-2.5); SODIUM (NA) 144 MEQ/L (136-145)
[2018-02-22 07:03] LABS: ALT (GPT) 22 U/L (12-78); PHOSPHORUS 2.8 MG/DL (2.5-4.9)
[2018-02-22 07:11] LABS: ALKALINE PHOSPHATASE 122 U/L (45-117); FREE T4 1.32 NG/DL (0.76-1.46); TOTAL BILIRUBIN ADULT 0.4 MG/DL (0.2-1.0); TOTAL PROTEIN 7.3 GM/DL (6.4-8.2)
[2018-02-22] MEDS: INSULIN ASPART SUPPLEMENTAL SCALE SQ SCH ×4 (08:00→21:00)
[2018-02-22] MEDS: REMOVE OLD PATCH T-DERMAL SCH (09:00)
[2018-02-22] MEDS: DOCUSATE SODIUM 50 MG/SENNA 8.6 MG TAB PO SCH ×2 (09:24→22:54)
[2018-02-22] MEDS: ASPIRIN 325 MG TAB PO SCH (09:24)
[2018-02-22] MEDS: SODIUM CHLORIDE 0.9% FLUSH 10 ML FLUSH IV FLUSH SCH ×4 (09:24→22:55)
[2018-02-22] MEDS: CIPROFLOXACIN 250 MG TAB PO SCH ×2 (09:24→22:54)
[2018-02-22] MEDS: NS + KCL 20 MEQ INJ 1,000 ML IV SCH (09:26)
--- NOTE | 2018-02-22 12:19 | HHI.PR ---
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 per MRI will get echocardiogram Patient may need ROMULO Discussed with RN and patient and case management and family Consult physical therapy occupational therapy and speech therapy 5-1 TO HAVE ECHO TODAY- DONE NOT READ DW RN AND PT AND FAMILY AND CASE MANAGEMENT CONTINUE PT AND OT AND ST INCREASE ACTIVITY MAY NEED ROMULO DEPENDING ON WHAT 2D ECHO SHOWS Objective Vitals Vital Signs Date Time Temp Pulse Resp B/P (MAP) Pulse Ox O2 Delivery O2 Flow Rate FiO2 02/22/18 08:15 97 21 02/22/18 08:00 Room Air 02/22/18 08:00 72 02/22/18 07:30 98.1 73 18 96 160/94 (116) 02/22/18 04:00 97.2 85 16 166/82 (110) 97 02/22/18 00:00 70 02/22/18 00:00 97.6 86 16 160/83 (108) 96 02/21/18 20:43 96 21 02/21/18 20:00 Room Air 02/21/18 20:00 97.6 81 16 193/89 (123) 97 02/21/18 19:45 77 02/21/18 16:54 98.2 86 20 164/90 (114) 96 I/O 02/21/18 02/21/18 02/21/18 02/22/18 02/22/18 02/22/18 06:59 14:59 22:59 06:59 14:59 22:59 Intake Total 1000 ml 840 ml Output Total 1250 ml 900 ml 1350 ml Balance -250 ml -60 ml -1350 ml Intake Oral 840 ml IV Total 1000 ml Output Urine Total 1250 ml 900 ml 1350 ml # Bowel Movements 0 Result Diagram: 02/22/18 0530 02/22/18 0330 Other Results Laboratory Tests Test 02/22/18 03:30 02/22/18 05:30 Blood Urea Nitrogen 26 MG/DL Creatinine 1.65 MG/DL Random Glucose 107 MG/DL Total Protein 7.3 GM/DL Albumin 2.5 GM/DL Calcium Level 8.7 MG/DL Phosphorus Level 2.8 MG/DL Magnesium Level 1.9 MG/DL Alkaline Phosphatase 122 U/L Aspartate Amino Transf (AST/SGOT) 21 U/L Alanine Aminotransferase (ALT/SGPT) 22 U/L Total Bilirubin 0.4 MG/DL Sodium Level 144 MEQ/L Potassium Level 3.7 MEQ/L Chloride Level 113 MEQ/L Carbon Dioxide Level 20.2 MEQ/L Anion Gap 11 MEQ/L Estimat Glomerular Filtration Rate 40 ML/MIN Free Thyroxine 1.32 NG/DL Thyroid Stimulating Hormone 3rd Gen 1.710 uIU/ML White Blood Count 12.7 TH/MM3 Red Blood Count 3.27 MIL/MM3 Hemoglobin 10.1 GM/DL Hematocrit 28.9 % Mean Corpuscular Volume 88.3 FL Mean Corpuscular Hemoglobin 31.0 PG Mean Corpuscular Hemoglobin Concent 35.1 % Red Cell Distribution Width 13.0 % Platelet Count 133 TH/MM3 Mean Platelet Volume 8.2 FL Neutrophils (%) (Auto) 80.7 % Lymphocytes (%) (Auto) 9.1 % Monocytes (%) (Auto) 7.4 % Eosinophils (%) (Auto) 2.5 % Basophils (%) (Auto) 0.3 % Neutrophils # (Auto) 10.2 TH/MM3 Lymphocytes # (Auto) 1.2 TH/MM3 Monocytes # (Auto) 0.9 TH/MM3 Eosinophils # (Auto) 0.3 TH/MM3 Basophils # (Auto) 0.0 TH/MM3 CBC Comment DIFF FINAL Differential Comment Imaging Last Impressions Carotid Artery Ultrasound 02/20/18 0000 Signed Impressions: Service Date/Time: Tuesday, February 20, 2018 15:25 - CONCLUSION: Mild carotid bulb plaque without significant stenosis seen. Kareem Hollins MD Brain MRI 02/20/18 0000 Signed Impressions: Service Date/Time: Tuesday, February 20, 2018 13:42 - CONCLUSION: 1. Numerous areas of abnormal signal on the diffusion weighted images of the periphery of the cerebral hemispheres, in the periventricular regions, and a linear focus of the left cerebellar hemisphere consistent with numerous small areas of acute infarction. 2. Abnormal signal in the SWI images likely related to prior areas of hemorrhage or potentially small areas of petechial hemorrhage. A large lauren hemorrhage with mass effect is not seen. Kareem Hollins MD Head CT 02/19/18 0000 Signed Impressions: Service Date/Time: Monday, February 19, 2018 18:49 - CONCLUSION: 1. Cerebral atrophy. 2. No acute intracranial abnormality. Peterson Dahl MD Chest X-Ray [id number] Signed Impressions: Service Date/Time: Friday, February 16, 2018 21:01 - CONCLUSION: No acute cardiopulmonary disease demonstrated. Kareem Galicia MD Lumbar Spine X-Ray 02/16/18 0000 Signed Impressions: Service Date/Time: Friday, February 16, 2018 22:10 - CONCLUSION: Mid and lower lumbar degenerative changes as above. No fracture or subluxation. Kareem Galicia MD Hip and Pelvis X-Ray 02/16/18 0000 Signed Impressions: Service Date/Time: Friday, February 16, 2018 22:08 - CONCLUSION: Normal radiographic appearance of the bony pelvis and right hip. Kareem Galicia MD Objective Remarks GENERAL: Awake and alert more talkative and cooperative moving all 4 extremities following commands SKIN: Warm and dry. HEAD: Atraumatic. Normocephalic. EYES: Pupils equal and round. No scleral icterus. No injection or drainage. Extraocular muscles intact ENT: No nasal bleeding or discharge. Mucous membranes pink and moist. Tongue is midline NECK: Trachea midline. No JVD. Supple CARDIOVASCULAR: IRRegular rate and rhythm. S1-S2 no S3 or S4 RESPIRATORY: No accessory muscle use. Clear to auscultation. Breath sounds equal bilaterally. GASTROINTESTINAL: Abdomen soft, non-tender, nondistended. Hepatic and splenic margins not palpable. MUSCULOSKELETAL: Extremities without clubbing, cyanosis, or edema. No obvious deformities. NEUROLOGICAL: Awake and alert. No obvious cranial nerve deficits. Motor grossly within normal limits. 3 out of 5 muscle strength in the arms and legs. ABNormal speech. PSYCHIATRIC: INAppropriate mood and affect; insight and judgment ABnormal. Procedures EEG Medications and IVs Current Medications Sodium Chloride 500 ml @ 500 mls/hr BOLUS ONCE IV Last administered on at 21:16; Start 02/16/18 at 20:45; Stop 02/16/18 at 21:44; Status DC Ciprofloxacin/ Dextrose 200 ml @ 200 mls/hr ONCE ONCE IV Last administered on 02/16/18at 23:12; Start 02/16/18 at 22:30; Stop 02/16/18 at 23:29; Status DC Carvedilol (Coreg) 3.125 mg BID PO Last administered on 02/17/18at 09:11; Start 02/17/18 at 09:00; Stop 02/17/18 at 16:59; Status DC Clopidogrel Bisulfate (Plavix) 75 mg DAILY PO Last administered on 02/20/18at 09 :49; Start 02/17/18 at 09:00; Stop 02/20/18 at 15:15; Status DC Isosorbide Mononitrate (Imdur) 30 mg DAILY@0700 PO Last administered on at 06:32; Start 02/17/18 at 07:00; Stop 02/17/18 at 16:59; Status DC Pravastatin Sodium (Pravachol) 20 mg HS PO Last administered on 02/21/18at 20:51 ; Start 02/17/18 at 21:00 Ceftriaxone Sodium 1000 mg/ Sodium Chloride 100 ml @ 200 mls/hr Q24H IV Last administered on 02/20/18at 09:48; Start 02/17/18 at 09:00; Stop 02/20/18 at 11:13 ; Status DC Sodium Chloride 1,000 ml @ 70 mls/hr [id number] IV Last administered on at 23:43; Start 02/16/18 at 23:20; Stop 02/20/18 at 14:33; Status DC Sodium Chloride (NS Flush) 2 ml UNSCH PRN IV FLUSH FLUSH AFTER USING IV ACCESS ; Start 02/16/18 at 23:30 Sodium Chloride (NS Flush) 2 ml BID IV FLUSH Last administered on 02/22/18at 09: 24; Start 02/17/18 at 09:00 Acetaminophen (Tylenol) 650 mg Q4H PRN PO TEMP > 100.4; Start 02/16/18 at 23:30 Ondansetron HCl (Zofran Inj) 4 mg Q6H PRN IVP NAUSEA OR VOMITING; Start at 23:30 Heparin Sodium (Porcine) (Heparin Inj) 5,000 units Q12H SQ Last administered on 02/19/18at 23:43; Start 02/16/18 at 23:30; Stop 02/20/18 at 15:15; Status DC Naloxone HCl (Narcan Inj) 0.4 mg UNSCH PRN IV PUSH SEE LABEL COMMENTS; Start at 23:30 Senna/Docusate Sodium (Herminia-Colace) 1 tab BID PO Last administered on 02/22/18at 09:24; Start 02/17/18 at 09:00 Magnesium Hydroxide (Milk Of Magnesia Liq) 30 ml Q12H PRN PO Mild constipation Last administered on 02/18/18at 11:54; Start 02/16/18 at 23:30 Sennosides (Senokot) 17.2 mg Q12H PRN PO Moderate constipation; Start 02/16/18 at 23:30 Bisacodyl (Dulcolax Supp) 10 mg DAILY PRN RECTAL SEVERE CONSITIPATION/ IF NPO ; Start 02/16/18 at 23:30 Lactulose (Lactulose Liq) 30 ml DAILY PRN PO SEVERE CONSITIPATION / IF PO; Start 02/16/18 at 23:30 Nicotine (Habitrol 14 Mg Patch.24 Hr) 1 patch DAILY T-DERMAL Last administered on 02/19/18at 08:49; Start 02/17/18 at 13:30; Stop 02/19/18 at 12:04; Status DC Miscellaneous Information 1 DAILY T-DERMAL Last administered on 02/22/18at 09:00 ; Start 02/17/18 at 13:30 Clonidine (Catapres) 0.1 mg Q6H PRN PO SBP>160, DBP>90 Last administered on 20:51; Start 02/17/18 at 16:00 Carvedilol (Coreg) 12.5 mg BID PO Last administered on 02/20/18at 09:49; Start 02/17/18 at 21:00; Status Future Hold Isosorbide Mononitrate (Imdur) 60 mg DAILY@0700 PO Last administered on at 06:07; Start 02/18/18 at 07:00; Status Future Hold Amlodipine Besylate (Norvasc) 5 mg DAILY PO Last administered on 02/20/18 09: 49; Start 02/17/18 at 17:00; Status Future Hold Potassium Bicarb/ Potassium Chloride (K-Lyte Cl Eff) 75 meq ONCE ONCE PO Last administered on 02/18/18at 15:45; Start 02/18/18 at 15:00; Stop 02/18/18 at 15:01; Status DC Albuterol/ Ipratropium (Duoneb Neb) 1 ampule Q2HR NEB PRN NEB SOB/WHEEZING Last administered on 02/21/18at 21:00; Start 02/18/18 at 15:00 Aspirin (Aspirin Chew) 81 mg DAILY CHEW Last administered on 02/20/18at 09:49; Start 02/19/18 at 09:00; Stop 02/20/18 at 15:15; Status DC Ferrous Sulfate (Ferrous Sulfate) 325 mg MoWeFr PO Last administered on at 11:00; Start 02/21/18 at 08:15 Nitroglycerin (Nitrostat Sl) 0.4 mg Q5M PRN SL CHEST PAIN; Start 02/19/18 at 08 :15 Ciprofloxacin (Cipro) 250 mg Q12HR PO Last administered on 02/22/18 09:24; Start 02/20/18 at 11:15; Stop 03/02/18 at 11:14 Potassium Chloride/Sodium Chloride 1,000 ml @ 70 mls/hr [id number] IV Last administered on 02/22/18at 09:26; Start 02/20/18 at 15:30 Enalaprilat (Vasotec Inj) 1.25 mg Q4H PRN IV PUSH For SBP > 220 or DBP > 120; Start 02/20/18 at 15:30 Dextrose (D50w (Vial) Inj) 50 ml UNSCH PRN IV PUSH HYPOGLYCEMIA-SEE COMMENTS; Start 02/20/18 at 15:30 Glucagon (Glucagon Inj) 1 mg UNSCH PRN OTHER HYPOGLYCEMIA-SEE COMMENTS; Start 02/20/18 at 15:30 Levothyroxine Sodium (Synthroid Inj) 100 mcg ONCE ONCE IV PUSH ; Start at 15:30; Stop 02/20/18 at 15:31; Status Cancel Sodium Chloride (NS Flush) 2 ml BID IV FLUSH Last administered on 02/22/18at 09: 25; Start 02/20/18 at 21:00 Sodium Chloride (NS Flush) 2 ml UNSCH PRN IV FLUSH FLUSH AFTER USING IV ACCESS ; Start 02/20/18 at 19:15 Aspirin (Aspirin) 325 mg DAILY PO Last administered on 02/22/18 09:24; Start at 19:15 Insulin Aspart (NovoLOG SUPPLEMENTAL SCALE) 1 ACHS SQ Last administered on 02/21at 20:51; Start 4/29/18 at 21:00 Dextrose (D50w (Vial) Inj) 50 ml UNSCH PRN IV PUSH HYPOGLYCEMIA-SEE COMMENTS; Start 02/20/18 at 19:15 Glucagon (Glucagon Inj) 1 mg UNSCH PRN OTHER HYPOGLYCEMIA-SEE COMMENTS; Start 02/20/18 at 19:15 A/P Problem List: (1) Sepsis ICD Code: A41.9 - Sepsis, unspecified organism (2) UTI (urinary tract infection) ICD Code: N39.0 - Urinary tract infection, site not specified Status: Acute Assessment and Plan 82 years old man with 1. Sepsis 2/2 UTI Urine culture positive for Klebsiella pneumonia Stable switch to Cipro 2. Elevated troponin EKG significant for normal sinus rhythm with LVH, no ST segment elevations or depressions, Initial troponin 0.08, troponin in November 0.22 Suspect elevated troponin is baseline Appreciate input from cardiology imdur increased, consider titrating coreg Advise continue current medical management as patient not a candidate for any invasive procedure 3. Coronary artery disease Status post stent placement Continue Plavix 4. Chronic kidney disease stage 3 Avoid all nephrotoxic drugs Monitor renal function Improving discontinue IV fluid hydration if tolerating p.o. 5. Hyperlipidemia Continue home medications 6. Hypokalemia Give potassium 75 mEq 1 now and monitor 7. Global deconditioning PT to treat any above 8. Encephalopathy could be from sepsis, sleep deprivation or meds. Rpt HCT unremarkable pending EEG. Obtain MRI. Dw pharmacy dc nicotine patch. Good sleep hygiene dw RN POSITIVE EMBOLIC CVA PER NEUROLOGY 9 MRI SHOWED CVA AND BLEED WILL NEED ECHO AND MAYBE ROMULO ANTICOAGULATION PER NEUROLOGY PT AND OT AND ST Discharge Planning PENDING CLEARANCE BY NEUROLOGY AND DECISION ON ANTICOAGULATION [employer] AND OR NEED FOR ROMULO Problem Qualifiers (1) UTI (urinary tract infection): Qualified Codes: N30.00 - Acute cystitis without hematuria Demetrius Vera DO February 22, 2018 12:19
--- NOTE | 2018-02-22 12:57 | ECHRPT ---
Indication: CVA/TIA CONCLUSIONS Normal left ventricular size. Wall thickness is measured at the upper limits of normal. The left ventricular systolic function is low normal with an estimated ejection fraction of 50%. No definite regional wall motion abnormalities. [id number] mitral valve regurgitation. Minimal aortic valve sclerosis is present. There is trace tricuspid valve regurgitation. The estimated pulmonary arterial pressure is 29 mmHg. BP: 165 / 85 HR: 85 Rhythm: Sinus MEASUREMENTS (Male / Female) Normal Values Technical Quality:Fair 2D ECHO LV Diastolic Diameter PLAX 5.1 cm 4.2 - 5.9 / 3.9 - 5.3 cm LV Systolic Diameter PLAX 4.1 cm IVS Diastolic Thickness 1.2 cm 0.6 - 1.0 / 0.6 - 0.9 cm LVPW Diastolic Thickness 1.2 cm 0.6 - 1.0 / 0.6 - 0.9 cm LV Relative Wall Thickness 0.5 RV Internal Dim ED PLAX 3.0 cm LVOT Diameter 2.0 cm Aortic Root Diameter 3.8 cm LA Systolic Diameter LX 3.2 cm 3.0 - 4.0 / 2.7 - 3.8 cm DOPPLER AV Peak Velocity 135.0 cm/s AV Peak Gradient 7.3 mmHg AV Mean Gradient 4.0 mmHg AV Velocity Time Integral 22.0 cm LVOT Peak Velocity 90.2 cm/s LVOT Peak Gradient 3.3 mmHg LVOT Velocity Time Integral 15.1 cm AV Area Cont Eq vti 2.2 cm AV Area Cont Eq pk 2.1 cm Mitral E Point Velocity 48.9 cm/s Mitral A Point Velocity 67.6 cm/s Mitral E to A Ratio 0.7 LV E' Lateral Velocity 4.0 cm/s Mitral E to LV E' Lateral Ratio 12.1 LV E' Septal Velocity 2.3 cm/s Mitral E to LV E' Septal Ratio 20.9 TR Peak Velocity 221.0 cm/s TR Peak Gradient 19.5 mmHg Right Atrial Pressure 10.0 mmHg Pulmonary Artery Systolic Pressu 29.5 mmHg Right Ventricular Systolic Press 29.5 mmHg PV Peak Velocity 84.2 cm/s PV Peak Gradient 2.8 mmHg FINDINGS LEFT VENTRICLE Normal left ventricular size. Wall thickness is measured at the upper limits of normal. The left ventricular systolic function is low normal with an estimated ejection fraction of 50%. No definite regional wall motion abnormalities. RIGHT VENTRICLE Normal right ventricular size and systolic function. LEFT ATRIUM The left atrial size is normal. RIGHT ATRIUM The right atrial size is normal. ATRIAL SEPTUM No atrial level shunt is demonstrated by color flow Doppler interrogation. AORTA The aortic root and proximal ascending aorta are not well visualized. MITRAL VALVE [id number] mitral valve regurgitation. AORTIC VALVE Minimal aortic valve sclerosis is present. TRICUSPID VALVE There is trace tricuspid valve regurgitation. The estimated pulmonary arterial pressure is 29 mmHg. PULMONARY VALVE No pulmonary valve regurgitation or stenosis. VESSELS The inferior vena cava is normal in size. PERICARDIUM No pericardial effusion. Seth Becerril MD (Electronically Signed) Final Date:22 Feb 2018 12:57
--- NOTE | 2018-02-22 16:51 | HM ---
Date Performed: 02/20/2018 Time Performed: 18:58:00 HOOKUP DATE: 02/20/18 06:58:00 PM Sun ANALYSIS START TIME: 02/20/2018 7:03:00 PM ANALYSIS END TIME: 02/21/2018 7:07:00 PM PATIENT AGE: 82 PATIENT HEIGHT PATIENT WEIGHT DRUG LIST PATIENT DIAGNOSIS: ams TEST NARRATIVE: The patient's average heart rate was 77 BPM. Heart rates greater than 120 B PM were noted < 1% of the time. No episodes of bradycardia were noted. No pauses exceeding 2.0 s econds were noted. 97 ventricular ectopics, which represented < 1% of the total beat count, were noted. The highest ventricular ectopic frequency occurred from 01:00 PM to 02:00 PM Mon. During thi s time 12 VE(s) occurred. Ventricular ectopics were observed as 93 isolated beat(s) and as 2 couplet (s). No runs were noted. 2454 supraventricular ectopics, which represented 2% of the total beat count, were noted. The highest supraventricular ectopic frequency occurred from 09:00 AM to 10:00 AM Mon. During this time 407 SVE(s) occurred. Multiple episodes of ST depression (defined as -1.0 mm or more) were noted in channel 1. The maximum depression of -2.3 mm occurred at 03:12:01 AM Mon. Multiple episodes of ST depression (defined as -1.0 mm or more) were noted in channel 2. The maxi mum depression of -1.8 mm occurred at 03:32:41 AM Mon. Multiple episodes of ST depression (defined a s -1.0 mm or more) were noted in channel 3. The maximum depression of -1.3 mm occurred at 09:07:22 PM Sun. NO DIARY GIVEN, POOR QUALITY TRACING TEST INTERPRETATION: No diary is available and no significant pauses are present. The underlying rhythm is Sinus rhythm with average rate 77 bpm and range of 55 to 128 bpm. Rare to occasional premature ventricular contra ctions and ventricular couplets are seen. Frequent premature atrial contractions are seen, some of wh ich may be nonconducted. There are number of atrial runs seen. The maximum duration is supposedly 45 beats. This may represent a short run of atrial fibrillation. Signed by : David Kebede
[2018-02-22] MEDS: cloNIDine HCL 0.1 MG TAB PO PRN (22:54)
[2018-02-22] MEDS: PRAVASTATIN SOD 20 MG TAB PO SCH (22:55)
[2018-02-23] VITALS (11 sets, daily range): BP systolic 135–179; BP diastolic 76–98; PULSE 80–89; RESP 18–19; TEMP 97.5–98.4; O2SAT 94–98
[2018-02-23 07:12] LABS: AUTOMATED NEUTROPHIL # 12.2 TH/MM3 (1.8-7.7); BASOPHIL % 0.3 % (0.0-2.0); EOSINOPHIL # 0.1 TH/MM3 (0-0.4); EOSINOPHIL % 0.8 % (0.0-4.0); HEMOGLOBIN 11.1 GM/DL (13.0-17.0); LYMPH % 8.2 % (9.0-44.0); LYMPHOCYTE # 1.2 TH/MM3 (1.0-4.8); MEAN CELL VOLUME 89.2 FL (80.0-100.0); MEAN CORPUSCULAR HGB CONC 34.7 % (32.0-36.0); MONO % 8.5 % (0.0-8.0); MONOCYTE # 1.3 TH/MM3 (0-0.9); NEUT % 82.2 % (16.0-70.0); PLATELET COUNT 123 TH/MM3 (150-450); RED BLOOD COUNT 3.58 MIL/MM3 (4.50-5.90); RED CELL DISTRIBUTION WIDTH 13.3 % (11.6-17.2); WHITE BLOOD COUNT 14.9 TH/MM3 (4.0-11.0)
[2018-02-23] MEDS: NS + KCL 20 MEQ INJ 1,000 ML IV SCH ×2 (07:28→15:51)
[2018-02-23 07:41] LABS: ALBUMIN 2.7 GM/DL (3.4-5.0); ALT (GPT) 21 U/L (12-78); AST (GOT) 19 U/L (15-37); BICARBONATE 25.5 MEQ/L (21.0-32.0); BLOOD UREA NITROGEN 26 MG/DL (7-18); CALCIUM 8.7 MG/DL (8.5-10.1); CHLORIDE 111 MEQ/L (98-107); CREATININE 1.73 MG/DL (0.60-1.30); GLOMERULAR FILTRATION RATE 38 ML/MIN (>89); GLUCOSE,RANDOM 113 MG/DL (74-106); SODIUM (NA) 143 MEQ/L (136-145)
[2018-02-23 07:44] LABS: ALKALINE PHOSPHATASE 125 U/L (45-117); PHOSPHORUS 2.9 MG/DL (2.5-4.9); TOTAL BILIRUBIN ADULT 0.5 MG/DL (0.2-1.0); TOTAL PROTEIN 8.1 GM/DL (6.4-8.2)
[2018-02-23] MEDS: INSULIN ASPART SUPPLEMENTAL SCALE SQ SCH ×4 (08:00→20:52)
[2018-02-23] MEDS: SODIUM CHLORIDE 0.9% FLUSH 10 ML FLUSH IV FLUSH SCH ×4 (09:00→21:00)
[2018-02-23] MEDS: REMOVE OLD PATCH T-DERMAL SCH (09:00)
[2018-02-23] MEDS: FERROUS SULFATE 325 MG (65 MG ELEMENTAL IRON) TAB PO SCH (09:01)
[2018-02-23] MEDS: DOCUSATE SODIUM 50 MG/SENNA 8.6 MG TAB PO SCH ×2 (09:01→23:10)
[2018-02-23] MEDS: cloNIDine HCL 0.1 MG TAB PO PRN (09:01)
[2018-02-23] MEDS: CIPROFLOXACIN 250 MG TAB PO SCH ×2 (09:01→23:10)
[2018-02-23] MEDS: ASPIRIN 325 MG TAB PO SCH (09:01)
--- NOTE | 2018-02-23 18:28 | HHI.PR ---
Subjective Remarks Follow-up for stroke and UTI Afebrile, no chest pain, no shortness of breath. Patient weaker than yesterday , neurologic deficit stable. Discussed with patient's daughter Tone who is POA. They may be willing to transition to hospice if indicated Objective Vitals Vital Signs Date Time Temp Pulse Resp B/P (MAP) Pulse Ox O2 Delivery O2 Flow Rate FiO2 02/23/18 17:11 Room Air 02/23/18 16:07 97.6 87 19 152/81 (104) 98 02/23/18 16:00 80 02/23/18 13:00 Room Air 02/23/18 12:07 97.5 80 18 140/76 (97) 97 02/23/18 12:00 80 02/23/18 10:18 Room Air 02/23/18 08:07 98.0 88 18 179/97 (124) 96 02/23/18 04:00 85 02/23/18 04:00 97.8 85 18 178/93 (121) 97 02/23/18 00:00 88 02/23/18 00:00 97.9 89 18 175/98 (123) 94 02/22/18 20:00 86 02/22/18 20:00 98.1 86 18 194/95 (128) 95 02/22/18 19:00 Room Air I/O 02/22/18 02/22/18 02/22/18 02/23/18 02/23/18 02/23/18 07:00 15:00 23:00 07:00 15:00 23:00 Intake Total 120 ml 240 ml Output Total 1350 ml 900 ml 1200 ml Balance -1350 ml -780 ml -960 ml Intake Oral 120 ml 240 ml Output Urine Total 1350 ml 900 ml 1200 ml Result Diagram: 02/23/18 0655 02/23/18 0655 Objective Remarks GENERAL: Awake, not in distress, alert, appears to be oriented NECK: Trachea midline. No JVD. Supple CARDIOVASCULAR: Regular rate and rhythm, no murmurs. RESPIRATORY: No accessory muscle use. Clear to auscultation. Breath sounds equal bilaterally. GASTROINTESTINAL: Abdomen soft, non-tender, nondistended. Hepatic and splenic margins not palpable. MUSCULOSKELETAL: Extremities without clubbing, cyanosis, or edema. No obvious deformities. NEUROLOGICAL: Awake and alert oriented to self, to place, positive for right- sided weakness especially in right lower extremities. Fair handgrip. Good plantarflexion. Procedures EEG A/P Problem List: (1) Sepsis ICD Code: A41.9 - Sepsis, unspecified organism (2) UTI (urinary tract infection) ICD Code: N39.0 - Urinary tract infection, site not specified Status: Acute Assessment and Plan 82 years old man with 1. Sepsis 2/2 UTI Urine culture positive for Klebsiella pneumonia, continue ciprofloxacin, improving. 2. Elevated troponin EKG significant for normal sinus rhythm with LVH, no ST segment elevations or depressions, Initial troponin 0.08, troponin in November 0.22 Suspect elevated troponin is baseline Appreciate input from cardiology imdur increased, consider titrating coreg Advise continue current medical management as patient not a candidate for any invasive procedure 3. Coronary artery disease Status post stent placement Continue Plavix 4. Chronic kidney disease stage 3 Avoid all nephrotoxic drugs Monitor renal function Improving discontinue IV fluid hydration if tolerating p.o. 5. Hyperlipidemia Continue home medications 6. Hypokalemia Give potassium 75 mEq 1 now and monitor 7. Global deconditioning PT to treat any above 8. Encephalopathy could be from sepsis, sleep deprivation or meds. Rpt HCT unremarkable pending EEG. Obtain MRI. Dw pharmacy dc nicotine patch. 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 Echocardiogram unremarkable, ejection fraction 50%, no note of thrombus, refused ROMULO. Anticoagulation per neurology, Dr. Salinas informed. Continue therapy. Carotid ultrasound unremarkable. Discharge Planning Awaiting input from neurology, would likely need rehab versus acute rehab. Patient's daughter open to talking to hospice if indicated. Will await response from neurology Problem Qualifiers (1) UTI (urinary tract infection): Qualified Codes: N30.00 - Acute cystitis without hematuria Yana Pastor MD February 23, 2018 18:28
[2018-02-23] MEDS: CARVEDILOL 12.5 MG TAB PO SCH (23:10)
[2018-02-23] MEDS: PRAVASTATIN SOD 20 MG TAB PO SCH (23:10)
[2018-02-24] VITALS (9 sets, daily range): BP systolic 114–168; BP diastolic 67–90; PULSE 61–77; RESP 18–19; TEMP 97.4–98.1; O2SAT 95–98
[2018-02-24] MEDS: NS + KCL 20 MEQ INJ 1,000 ML IV SCH ×2 (05:17→19:43)
[2018-02-24] MEDS: ISOSORBIDE MONONITRATE 30 MG CR TAB (IMDUR) PO SCH (05:17)
[2018-02-24] MEDS: INSULIN ASPART SUPPLEMENTAL SCALE SQ SCH ×4 (08:00→21:08)
[2018-02-24] MEDS: ASPIRIN 325 MG TAB PO SCH (08:42)
[2018-02-24] MEDS: DOCUSATE SODIUM 50 MG/SENNA 8.6 MG TAB PO SCH ×2 (08:42→21:06)
[2018-02-24] MEDS: CARVEDILOL 12.5 MG TAB PO SCH ×2 (08:42→21:07)
[2018-02-24] MEDS: amLODIPine BESYLATE 5 MG TAB PO SCH (08:42)
[2018-02-24] MEDS: CIPROFLOXACIN 250 MG TAB PO SCH ×2 (08:42→21:07)
[2018-02-24] MEDS: REMOVE OLD PATCH T-DERMAL SCH (08:43)
[2018-02-24] MEDS: SODIUM CHLORIDE 0.9% FLUSH 10 ML FLUSH IV FLUSH SCH ×4 (08:43→21:00)
--- NOTE | 2018-02-24 12:43 | HHI.PR ---
Subjective Remarks Patient resting in bed with his 2 daughters and son at the bedside Patient awake alert, he is oriented to the person and place, not exactly to time He had multiple outburst of crying, emotionally labile I discussed extensively with his family regarding goal of treatment, they expressed their wish to transfer him on an urgent flight to [place] whether to rehab or to hospital I explained to them that patient currently stabilized however I do not see it a reasonable option for an emergency flight to [place] I also discussed and addressed the option of sniff or hospice, eventually they agreed on palliative care consult for further discussion and evaluation of the goal of treatment Objective Vitals Vital Signs Date Time Temp Pulse Resp B/P (MAP) Pulse Ox O2 Delivery O2 Flow Rate FiO2 02/24/18 12:24 97.8 66 18 114/67 (83) 98 02/24/18 08:07 97.4 73 18 141/75 (97) 96 02/24/18 08:00 Room Air 02/24/18 04:00 75 02/24/18 04:00 Room Air 02/24/18 04:00 98.1 75 18 168/90 (116) 97 02/24/18 00:20 76 02/24/18 00:00 02/23/18 23:57 98.3 86 18 168/82 (110) 96 02/23/18 23:57 Room Air 02/23/18 20:39 98.4 83 18 135/82 (99) 98 02/23/18 20:39 Room Air 02/23/18 20:00 82 02/23/18 19:40 96 21 02/23/18 17:11 Room Air 02/23/18 16:07 97.6 87 19 152/81 (104) 98 02/23/18 16:00 80 02/23/18 13:00 Room Air I/O 02/23/18 02/23/18 02/23/18 02/24/18 02/24/18 02/24/18 07:00 15:00 23:00 07:00 15:00 23:00 Intake Total 240 ml 600 ml 969 ml Output Total 1200 ml 700 ml 650 ml Balance -960 ml -100 ml 319 ml Intake Oral 240 ml 600 ml 120 ml IV Total 849 ml Output Urine Total 1200 ml 700 ml 650 ml # Bowel Movements 0 Result Diagram: 02/23/18 0655 02/23/18 0655 Objective Remarks GENERAL: This is a well-nourished, well-developed patient, in no apparent distress. However had multiple outbursts of crying, emotionally labile CARDIOVASCULAR: RRR, no gallops, or rubs. RESPIRATORY: Fair air entry bilaterally. No W, R, or R GASTROINTESTINAL: Abdomen soft, non-tender, nondistended. Positive bowel sounds MUSCULOSKELETAL: Extremities without clubbing, cyanosis, or edema. Pedal pulses appreciated NEUROLOGICAL: Awake and alert to place and person. Moves all extremity with significant muscle weakness in 4 extremity. Normal speech. Procedures EEG A/P Problem List: (1) Sepsis ICD Code: A41.9 - Sepsis, unspecified organism (2) UTI (urinary tract infection) ICD Code: N39.0 - Urinary tract infection, site not specified Status: Acute Assessment and Plan 82 years old man with 5/3:I discussed extensively with his family regarding goal of treatment, they expressed their wish to transfer him on an urgent flight to [place] whether to rehab or to hospital I explained to them that patient currently stabilized however I do not see it a reasonable option for an emergency flight to [place] I also discussed and addressed the option of sniff or hospice, eventually they agreed on palliative care consult for further discussion and evaluation of the goal of treatment A/P 1. Sepsis 2/2 UTI Urine culture positive for Klebsiella pneumonia, continue ciprofloxacin, improving. 2. Elevated troponin EKG significant for normal sinus rhythm with LVH, no ST segment elevations or depressions, Initial troponin 0.08, troponin in November 0.22 Suspect elevated troponin is baseline Appreciate input from cardiology imdur increased, consider titrating coreg Advise continue current medical management as patient not a candidate for any invasive procedure 3. Coronary artery disease Status post stent placement Continue Plavix 4. Chronic kidney disease stage 3 Avoid all nephrotoxic drugs Monitor renal function Improving discontinue IV fluid hydration if tolerating p.o. 5. Hyperlipidemia Continue home medications 6. Hypokalemia Give potassium 75 mEq 1 now and monitor 7. Global deconditioning PT to treat any above 8. Encephalopathy could be from sepsis, sleep deprivation or meds. Rpt HCT unremarkable pending EEG. Obtain MRI. [facility] dc nicotine patch. 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 Echocardiogram unremarkable, ejection fraction 50%, no note of thrombus, refused ROMULO. Anticoagulation per neurology, Dr. Salinas informed. Continue therapy. Carotid ultrasound unremarkable. Time spent discussing with patient and family at bedside 55 minutes Problem Qualifiers (1) UTI (urinary tract infection): Qualified Codes: N30.00 - Acute cystitis without hematuria Lisseth Roberson MD February 24, 2018 12:43
--- NOTE | 2018-02-24 15:42 | PD.CONS ---
Consult Service Palliative Care Consult Requested By Dr Roberson . Primary Care Physician Unknown Reason for Consultation a. To assist with evaluation and management of symptoms including: Weakness , dysphasia, anorexia, depression b. To assist medical decision maker(s) with: better understanding of current medical conditions; weighing benefits/burdens of medical treatment options; making medical treatment decisions. HPI History of Present Illness This 82 year old pt presented to the ED on 02/16/18 for evaluation of weakness, failure to thrive, x 1 week. History of COPD, AAA, CVA. Family reported not eating and unable to ambulate. Pt did not want to go to ED, family made him. He apparently also suffered a fall had bruising on his nose. * ED: CXR no acute process. Head CT no acute abnormality, atrophy and chronic white matter changes. Lumbar spine x-ray with degenerative changes. Hip and pelvis x-ray no acute process. WBC 12.1, hemoglobin 12.6, hematocrit 35.9. BUN 26/creatinine 2.03. Glucose 111. Potassium 3.5. Sodium 138. Troponin 0.08. EKG sinus tachycardia. Etiology weakness not clear. Somewhat confused, weak upon ED evaluation. Admitted for further evaluation and management. * Apparently daughters just come down from [place] to move him up to [place] to care from there. Upon their arrival of the then he was weak and unable to ambulate. He apparently suffered 2 falls in 24 hours. He had a one-week history of fever and chills per the daughters. They also noted altered mental status and confusion. They reported symptoms similar to when he had a UTI a year ago. * Cardiology consulted for NSTEMI: Patient with minimally abnormal troponin levels in the setting of renal insufficiency. No recent chest pain. EKG with no significant changes from prior. CKs negative all less than 50. Poor candidate for aggressive invasive cardiac evaluation functional status poor in addition renal insufficiency increases risk of dye-induced renal failure. Continue medical therapy. Optimize blood pressure control. * 02/[address] head unremarkable. Patient talking a little more but still not at Per family, still encephalopathic.? Sepsis versus sleep deprivation, versus meds. MRI ordered. * MRI brain completed= multiple areas of abnormal signal on diffusion imaging consistent with acute strokes in bilateral cerebral hemispheres and periventricular region, left cerebellar hemisphere, also prior areas of hemorrhage. Small areas of petechial hemorrhage are identified but there is no large lauren hemorrhage. Carotid ultrasound also done revealing mild narrowing but no significant stenosis. Neurology consulted. Recommends against full anticoagulation secondary to small amount of hemorrhage. Recommend aspirin therapy, echocardiogram ordered. Telemetry to rule out atrial fibrillation. If cardiogenic embolus identified may consider anticoagulation though may be high risk. * OT, PT following. Patient requiring maximal assistance to maintain sitting and balance. * 2D echo= wall thickness upper limits of normal. Left ventricular systolic function low normal EF 50% no definite regional wall motion abnormalities. Pulmonary arterial pressure 29. * 5/2. Patient afebrile. Still with significant weakness. Oriented to self. Urine culture positive for Klebsiella, continued on ciprofloxacin. Blood cultures with no growth 5 days . discharge planning for rehab. Medical attending also notes discussion with daughters regarding possibility of hospice , awaiting further input from neurology. WBC 14.9. H&H low but stable 11.1/ 32.0. Renal functions elevated though within recent range BUN 26/creatinine 1.73. * Palliative care consulted to assist with clarification of goals of treatment. Patient seen in room with 2 daughters, son present. He is alert, partially oriented though difficult to fully assess as he does not answer all of my questions appears to have some aphasia. Met with pt, family at length at bedside. Function/Cognitive Trajectory Apparently up until 2 weeks ago patient had been pretty much independent at home. He has a roommate, who does assist with things as needed. Patient stopped driving 2 years ago by his own choice to ensure he was safe. Roommate helps him by taking him out to eat, encouraging him to eat do ADLs etc. Reported to be cognitively sharp until this admission. Did previously undergo acute rehabilitation in [place] [facility] following a CVA in 2013. Review of Systems Constitutional: COMPLAINS OF: Fatigue, Weight loss (Family estimates approximately 20 pounds since last fall), Change in appetite, Generalized weakness, DENIES: Fever, Pain Eyes: COMPLAINS OF: Vision loss Ears, nose, mouth, throat: COMPLAINS OF: Oral lesions (Complains of sore mouth) , Throat pain Respiratory: DENIES: Cough, Sputum production, Shortness of breath Cardiovascular: DENIES: Chest pain, Lower Extremity Edema Gastrointestinal: COMPLAINS OF: Constipation, Difficulty Swallowing (Complains it hurts), Anorexia, DENIES: Abdominal pain, Diarrhea, Nausea, Vomiting Genitourinary: DENIES: Urinary incontinence, Urgency, Hematuria Musculoskeletal: DENIES: Joint pain Integumentary: DENIES: Rash Neurologic: DENIES: Headache Psychiatric: COMPLAINS OF: Depression Past Family Social History Coded Allergies: penicillin G (Unverified Allergy, Severe, Swelling, 06/08/17) Past Medical History History of bladder cancer Hyperlipidemia Coronary artery disease CVAs Chronic renal insufficiency hypertension . Past Surgical History Suprapubic catheter placement Cardiac catheterization with stent placement 2013 AAA s/p endovascular repair 2009 renal artery stent . Reported Medications Coreg (Carvedilol) 3.125 Mg Tab 3.125 Mg PO BID Nitrostat SL (Nitroglycerin) 0.4 Mg Subl 0.4 Mg SL Q5M PRN Isosorbide Mononitrate ER (Isosorbide Mononitrate) 30 Mg Osmar 30 Mg PO DAILY Tgt Aspirin (Aspirin) 81 Mg Chw 81 Mg CHEW DAILY Ventolin Hfa 18 GM Inh (Albuterol Sulfate) 90 Mcg/Act Aer 2 Puff INH Q4-6H PRN Triamcinolone Topical 0.025 % Oint 1 Applic TOPICAL BID Pravastatin 20 Mg Tab 20 Mg PO ZMOWEFR Folic Acid 0.4 Mg Tab 400 Mcg PO ZMOWEFR Vitamin D3 (Cholecalciferol) 1,000 Unit Tab 1,000 Units PO ZMOWEFR Ferrous Sulfate 325 Mg (65 Mg Iron) Tablet 325 Mg PO ZMOWEFR Vitamin B-12 (Cyanocobalamin) 1,000 Mcg Tab 1,000 Mcg PO DAILY Clopidogrel (Clopidogrel Bisulfate) 75 Mg Tab 75 Mg PO DAILY . Current Medications Medications (Trade) Dose Ordered Sig/Breann Route Start Time Stop Time Status Last Admin (Pravachol) 20 mg HS PO 02/17/18 21:00 02/23/18 23:10 (NS Flush) 2 ml UNSCH PRN IV FLUSH 02/16/18 23:30 (NS Flush) 2 ml BID IV FLUSH 02/17/18 09:00 02/22/18 22:55 (Tylenol) 650 mg Q4H PRN PO 02/16/18 23:30 (Zofran Inj) 4 mg Q6H PRN IVP 02/16/18 23:30 (Narcan Inj) 0.4 mg UNSCH PRN IV PUSH 02/16/18 23:30 (Herminia-Colace) 1 tab BID PO 02/17/18 09:00 5/18 08:42 (Milk Of Magnesia Liq) 30 ml Q12H PRN PO 02/16/18 23:30 02/18/18 11:54 (Senokot) 17.2 mg Q12H PRN PO 02/16/18 23:30 (Dulcolax Supp) 10 mg DAILY PRN RECTAL 02/16/18 23:30 (Lactulose Liq) 30 ml DAILY PRN PO 02/16/18 23:30 Miscellaneous Information 1 DAILY T-DERMAL 02/17/18 13:30 02/22/18 09:00 (Catapres) 0.1 mg Q6H PRN PO 02/17/18 16:00 02/23/18 09:01 (Coreg) 12.5 mg BID PO 02/17/18 21:00 Future hold 02/24/18 08:42 (Imdur) 60 mg DAILY@0700 PO 02/18/18 07:00 Future hold 02/24/18 05:17 (Norvasc) 5 mg DAILY PO 02/17/18 17:00 Future hold 02/24/18 08:42 (Duoneb Neb) 1 ampule Q2HR NEB PRN NEB 02/18/18 15:00 02/21/18 21:00 (Ferrous Sulfate) 325 mg MoWeFr PO 02/21/18 08:15 02/23/18 09:01 (Nitrostat Sl) 0.4 mg Q5M PRN SL 02/19/18 08:15 (Cipro) 250 mg Q12HR PO 02/20/18 11:15 03/02/18 11:14 02/24/18 08:42 Potassium Chloride/Sodium Chloride 1,000 ml @ 70 mls/hr [id number] IV 02/20/18 15:30 02/24/18 05:17 (Vasotec Inj) 1.25 mg Q4H PRN IV PUSH 02/20/18 15:30 (D50w (Vial) Inj) 50 ml UNSCH PRN IV PUSH 02/20/18 15:30 (Glucagon Inj) 1 mg UNSCH PRN OTHER 02/20/18 15:30 (NS Flush) 2 ml BID IV FLUSH 02/20/18 21:00 02/22/18 22:55 (NS Flush) 2 ml UNSCH PRN IV FLUSH 02/20/18 19:15 (Aspirin) 325 mg DAILY PO 02/20/18 19:15 02/24/18 08:42 (NovoLOG SUPPLEMENTAL SCALE) 1 ACHS SQ 02/20/18 21:00 02/21/18 20:51 (D50w (Vial) Inj) 50 ml UNSCH PRN IV PUSH 02/20/18 19:15 (Glucagon Inj) 1 mg UNSCH PRN OTHER 02/20/18 19:15 Family History Per EMR family history of cancer in his brother, no history of seizures or strokes Substance Use Tobacco: Smokes 1 PPD Alcohol: None Prescription med abuse: None Illicits: None . Psychosocial History . Lived with a roommate. 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 Enjoys riding motorcycles. Originally from [place] though has lived in [place] since the . Supported by 3 daughters, one son who live in [place]. He usually spends his [place]ruff in [place] and fall/winter in [place]. Spiritual/Cultural Factors Does not want cnc manager visits at this time Living Will: Copy in medical record Health Care Surrogate: Copy in medical record Health Care Surrogate(s): Designates 2 daughters Stephanie Wayne as healthcare surrogate. Documented care wishes: Documents in standard verbiage that in the presence of terminal or end-stage or vegetative condition would not want prolonged artificial measures . . Ethical and Legal Issues Patient with some mild confusion some aphasia status post CVA. May be able to participate some with decision that making though I would recommend shared decision making with his designated surrogate. He has healthcare surrogate designation naming his 2 daughters Stephanie Wayne as surrogates. Physical Exam Vital Signs Date Time Temp Pulse Resp B/P (MAP) Pulse Ox O2 Delivery O2 Flow Rate FiO2 02/24/18 14:45 21 02/24/18 12:24 97.8 66 18 114/67 (83) 98 02/24/18 08:07 97.4 73 18 141/75 (97) 96 02/24/18 08:00 Room Air 02/24/18 04:00 75 02/24/18 04:00 Room Air 02/24/18 04:00 98.1 75 18 168/90 (116) 97 02/24/18 00:20 76 02/24/18 00:00 02/23/18 23:57 98.3 86 18 168/82 (110) 96 02/23/18 23:57 Room Air 02/23/18 20:39 98.4 83 18 135/82 (99) 98 02/23/18 20:39 Room Air 02/23/18 20:00 82 02/23/18 19:40 96 21 02/23/18 17:11 Room Air 02/23/18 16:07 97.6 87 19 152/81 (104) 98 02/23/18 16:00 80 Exam CONSTITUTIONAL/GENERAL: This is an adequately nourished elderly male, in no apparent distress. TUBES/LINES/DRAINS: Peripheral IV upper extremity, Zhang catheter, colostomy appliance SKIN: No jaundice, rashes, or lesions. No wounds seen anteriorly. Skin warm/dry. HEAD: Atraumatic. Normocephalic. EYES: Pupils equal and round and reactive. Extraocular motions intact. No scleral icterus. No injection or drainage. Fundi not examined. ENT: Hard of hearing. Nose without bleeding or purulent drainage. + Upper palate, posterior oropharynx with white exudates. NECK: Trachea midline. Supple, nontender. No palpable thyroid enlargement or nodularity. CARDIOVASCULAR: Regular rate and rhythm without murmur.No JVD. Peripheral pulses symmetric. RESPIRATORY/CHEST: Symmetric, unlabored respirations. On room air. Clear to auscultation. Breath sounds equal bilaterally. GASTROINTESTINAL: Abdomen soft, non-tender, nondistended. No hepato-splenomegaly , or palpable masses. No guarding. Bowel sounds present. Colostomy present right lower quadrant stoma pink. No drainage at this time. GENITOURINARY: Without palpable bladder distension. + Penile implant noted. Zhang catheter in place-cloudy yellow urine present. MUSCULOSKELETAL: Extremities without clubbing, cyanosis, or edema. No joint tenderness or effusion noted. No calf tenderness. No mottling or clubbing. LYMPHATICS: No palpable cervical or supraclavicular adenopathy. NEUROLOGICAL: Awake and alert--oriented 2. Mild confusion. Some aphasia noted. Moving all 4 extremities. Follows commands. PSYCHIATRIC: Tearful at times during discussion . Diagnostic Tests Laboratory Laboratory Tests Test 02/22/18 03:30 02/22/18 05:30 02/23/18 06:55 Blood Urea Nitrogen 26 MG/DL (7-18) 26 MG/DL (7-18) Creatinine 1.65 MG/DL (0.60-1.30) 1.73 MG/DL (0.60-1.30) Random Glucose 107 MG/DL (74-106) 113 MG/DL (74-106) Total Protein 7.3 GM/DL (6.4-8.2) 8.1 GM/DL (6.4-8.2) Albumin 2.5 GM/DL (3.4-5.0) 2.7 GM/DL (3.4-5.0) Calcium Level 8.7 MG/DL (8.5-10.1) 8.7 MG/DL (8.5-10.1) Phosphorus Level 2.8 MG/DL (2.5-4.9) 2.9 MG/DL (2.5-4.9) Magnesium Level 1.9 MG/DL (1.5-2.5) 2.0 MG/DL (1.5-2.5) Alkaline Phosphatase 122 U/L (45-117) 125 U/L (45-117) Aspartate Amino Transf (AST/SGOT) 21 U/L (15-37) 19 U/L (15-37) Alanine Aminotransferase (ALT/SGPT) 22 U/L (12-78) 21 U/L (12-78) Total Bilirubin 0.4 MG/DL (0.2-1.0) 0.5 MG/DL (0.2-1.0) Sodium Level 144 MEQ/L (136-145) 143 MEQ/L (136-145) Potassium Level 3.7 MEQ/L (3.5-5.1) 3.8 MEQ/L (3.5-5.1) Chloride Level 113 MEQ/L (98-107) 111 MEQ/L (98-107) Carbon Dioxide Level 20.2 MEQ/L (21.0-32.0) 25.5 MEQ/L (21.0-32.0) Anion Gap 11 MEQ/L (5-15) 7 MEQ/L (5-15) Estimat Glomerular Filtration Rate 40 ML/MIN (>89) 38 ML/MIN (>89) Hemoglobin A1c 5.0 % (4.3-6.0) Free Thyroxine 1.32 NG/DL (0.76-1.46) Thyroid Stimulating Hormone 3rd Gen 1.710 uIU/ML (0.358-3.740) White Blood Count 12.7 TH/MM3 (4.0-11.0) 14.9 TH/MM3 (4.0-11.0) Red Blood Count 3.27 MIL/MM3 (4.50-5.90) 3.58 MIL/MM3 (4.50-5.90) Hemoglobin 10.1 GM/DL (13.0-17.0) 11.1 GM/DL (13.0-17.0) Hematocrit 28.9 % (39.0-51.0) 32.0 % (39.0-51.0) Mean Corpuscular Volume 88.3 FL (80.0-100.0) 89.2 FL (80.0-100.0) Mean Corpuscular Hemoglobin 31.0 PG (27.0-34.0) 31.0 PG (27.0-34.0) Mean Corpuscular Hemoglobin Concent 35.1 % (32.0-36.0) 34.7 % (32.0-36.0) Red Cell Distribution Width 13.0 % (11.6-17.2) 13.3 % (11.6-17.2) Platelet Count 133 TH/MM3 (150-450) 123 TH/MM3 (150-450) Mean Platelet Volume 8.2 FL (7.0-11.0) 8.0 FL (7.0-11.0) Neutrophils (%) (Auto) 80.7 % (16.0-70.0) 82.2 % (16.0-70.0) Lymphocytes (%) (Auto) 9.1 % (9.0-44.0) 8.2 % (9.0-44.0) Monocytes (%) (Auto) 7.4 % (0.0-8.0) 8.5 % (0.0-8.0) Eosinophils (%) (Auto) 2.5 % (0.0-4.0) 0.8 % (0.0-4.0) Basophils (%) (Auto) 0.3 % (0.0-2.0) 0.3 % (0.0-2.0) Neutrophils # (Auto) 10.2 TH/MM3 (1.8-7.7) 12.2 TH/MM3 (1.8-7.7) Lymphocytes # (Auto) 1.2 TH/MM3 (1.0-4.8) 1.2 TH/MM3 (1.0-4.8) Monocytes # (Auto) 0.9 TH/MM3 (0-0.9) 1.3 TH/MM3 (0-0.9) Eosinophils # (Auto) 0.3 TH/MM3 (0-0.4) 0.1 TH/MM3 (0-0.4) Basophils # (Auto) 0.0 TH/MM3 (0-0.2) 0.0 TH/MM3 (0-0.2) CBC Comment DIFF FINAL DIFF FINAL Differential Comment Result Diagram: 02/23/18 0655 02/23/18 0655 Microbiology Microbiology Date/Time Source Procedure Growth Status 02/16/18 20:35 Blood Peripheral Aerobic Blood Culture - Final NO GROWTH IN 5 DAYS Complete 02/16/18 20:35 Blood Peripheral Anaerobic Blood Culture - Final NO GROWTH IN 5 DAYS Complete 02/16/18 20:40 Urine Random Urine Urine Culture - Final Klebsiella Pneumoniae Providencia Stuartii Complete Imaging Last Impressions Carotid Artery Ultrasound 02/20/18 0000 Signed Impressions: Service Date/Time: Tuesday, February 20, 2018 15:25 - CONCLUSION: Mild carotid bulb plaque without significant stenosis seen. Kareem Hollins MD Brain MRI 02/20/18 0000 Signed Impressions: Service Date/Time: Tuesday, February 20, 2018 13:42 - CONCLUSION: 1. Numerous areas of abnormal signal on the diffusion weighted images of the periphery of the cerebral hemispheres, in the periventricular regions, and a linear focus of the left cerebellar hemisphere consistent with numerous small areas of acute infarction. 2. Abnormal signal in the SWI images likely related to prior areas of hemorrhage or potentially small areas of petechial hemorrhage. A large lauren hemorrhage with mass effect is not seen. Kareem Hollins MD Head CT 02/19/18 0000 Signed Impressions: Service Date/Time: Monday, February 19, 2018 18:49 - CONCLUSION: 1. Cerebral atrophy. 2. No acute intracranial abnormality. Peterson Dahl MD Chest X-Ray 02/16/182036 Signed Impressions: Service Date/Time: Friday, February 16, 2018 21:01 - CONCLUSION: No acute cardiopulmonary disease demonstrated. Kareem Galicia MD Lumbar Spine X-Ray 02/16/18 0000 Signed Impressions: Service Date/Time: Friday, February 16, 2018 22:10 - CONCLUSION: Mid and lower lumbar degenerative changes as above. No fracture or subluxation. Kareem Galicia MD Hip and Pelvis X-Ray 02/16/18 0000 Signed Impressions: Service Date/Time: Friday, February 16, 2018 22:08 - CONCLUSION: Normal radiographic appearance of the bony pelvis and right hip. Kareem Galicia MD Patient/Family Conference Family Conference Time (mins): 40 Family Conference Location: Bedside Issues Discussed: Met with patient, 2 daughters, son at length at bedside. Discussion included the following: * Palliative care role, purpose, approach * Additional medical, psychosocial, and spiritual history * Patients general health, functional status, and cognitive changes in the months leading up to the current hospitalization * Patient/family understanding of the current medical problems; review of current treatments in place, review of possible trajectories as well as potential complications and setbacks the patient could face. * Patient/family understanding of prognosis * Patients goals of care as best understood from advance directives and/or conversations and/or values * Current medical treatment options and benefits/burdens of those options * CODE STATUS-patient supported by family affirms DNR status. * Legal decision makers, family provided healthcare surrogate documentation--I faxed this to medical records * Likely scenarios comparing ongoing aggressive care with a transition to comfort measures only--- review of ongoing aggressive treatment course including rehabilitation to continue to improve patient condition for possible family move up to [place] versus comfort focus, possible outpatient hospice with transition to outpatient hospice in [place] area. * Questions answered to the best of my ability * Palliative care contact information provided Met at length with patient and family at bedside. Patient generally listens and participates though at times is aphasic, at times is tearful. Does not answer all of my questions. Appears mildly confused at times. Family details that he over the past 3 weeks has had significant decline, has appeared withdrawn has not wanted to eat, and has indicated that he is old and tired. They do feel he has had some general decline over the past year about 20 pounds weight loss since around last June. Family appears to have good understanding of conditions and medical treatments. Patient also appears to have some understanding he indicates that he did not want further ROMULO or cardiac workup because he is "old and does not want anymore stuff done". Exploration with them current conditions and trajectory going forward which would include rehabilitation, as well as complications he may encounter. Alternatively review comfort focus course possibly involving hospice. Family and patient want to try to get him back up to [place] where they could continue to pursue rehabilitation versus hospice. Patient is tearful. On one hand he indicates that he is tired and does not want to keep doing things, on the other hand he indicates that may be he would want to try to get as strong as possible to have the best chance of getting back up to [place]. Goals for now semi-aggressive short of resuscitation though patient and family open to ongoing conversations as clinical course evolves. They wish to talk again to palliative tomorrow morning, I will follow-up in the morning. Assessment and Plan Disease Oriented Problem List: (1) HTN (hypertension) (2) CKD (chronic kidney disease) stage 3, GFR 30-59 ml/min (3) History of bladder cancer (4) Hx Of Bladder Malignancy (5) UTI (urinary tract infection) (6) Weakness (7) Non-ST elevation TN (NSTEMI) (8) History of AAA (abdominal aortic aneurysm) repair Symptom Scale: (1) Anorexia 0-10 Scale: Unable to quantify (2) Dysphagia 0-10 Scale: Unable to quantify (3) Weakness 0-10 Scale: Unable to quantify Pertinent Non-Medical Issues Psychosocial:. Lived with a roommate. 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 Enjoys riding motorcycles. Originally from [place] though has lived in [place] since the . Supported by 3 daughters, one son who live in [place]. He usually spends his woodruff in [place] and fall/winter in [place]. Spiritual: Does not want cnc manager visit at this time Legal:Patient with some mild confusion some aphasia status post CVA. May be able to participate some with decision that making though I would recommend shared decision making with his designated surrogate. He has healthcare surrogate designation naming his 2 daughters Tone, Stephanie as surrogates. Ethical issues impacting care: No ethical issues identified Important Contacts Tone Sterling daughter [phone] Luis F- daughter- [phone] Prognosis This patient was admitted for weakness, failure to thrive. Positive findings of UTI, NSTEMI,and CVA per MRI imaging. He is continued to have some weakness and confusion as well as dysphasia. Possible he may rehabilitate and restore some strength, function. He does remain at risk for ongoing complications and further debility secondary to advanced age and multiple medical conditions. May be appropriate for hospice if goals comfort oriented. . Code Status: No Code Plan Legal decision maker:Patient with some mild confusion some aphasia status post CVA. May be able to participate some with decision that making though I would recommend shared decision making with his designated surrogate. He has healthcare surrogate designation naming his 2 daughters Stephanie Wayne as surrogates. Goals:exploration with them current conditions and trajectory going forward which would include rehabilitation, as well as complications he may encounter. Alternatively review comfort focus course possibly involving hospice. Family and patient want to try to get him back up to [place] where they could continue to pursue rehabilitation versus hospice. Patient is tearful. On one hand he indicates that he is tired and does not want to keep doing things, on the other hand he indicates that may be he would want to try to get as strong as possible to have the best chance of getting back up to [place]. Goals for now semi-aggressive short of resuscitation though patient and family open to ongoing conversations as clinical course evolves. They wish to talk again to palliative tomorrow morning, I will follow-up in the morning. CODE STATUS: DNR SYMPTOMS: --Dysphagia-speech therapy following-patient on modified diet. He indicates he does not like thickened or pured items. He has had a poor appetite in the weeks leading up to this hospitalization. May be at ongoing risk for aspiration secondary to CVA. Also complains of oropharyngeal pain, appears to have thrush. recommend oral nystatin swish/swallow Q 6 hr --Anorexia--speech therapy following-patient on modified diet. He indicates he does not like thickened or pured items. He has had a poor appetite in the weeks leading up to this hospitalization. May be at ongoing risk for aspiration secondary to CVA. Also complains of oropharyngeal pain, appears to have thrush. recommend oral nystatin swish/swallow Q 6 hr --Depression-patient and family indicate he has been withdrawn, sad and does not really feel like trying to recover or rehabilitate. Some of this may be situational depression, on the other hand, even if depression is treated he will continue to have underlying chronic medical conditions as well as chronic debility secondary to. --Weakness-status post CVA,+ UTI. General decline and weakness over the past several weeks to month. Overall slower decline over the past 1 year, general debility. Will require ongoing aggressive PT, OT to maintain/restore function. --Tobacco craving--family requests nicotine patch be restarted as they feel withdrawal from smoking is contributing to his anxiety in the hospital setting Palliative care will continue to follow during hospital course as condition evolves, to assist patient/decision-maker with understanding of medical conditions, weighing benefits/burdens of treatment options, for clarification of goals of treatment. Additionally will assist with any symptoms of palliative concern Time Spent Total Floor Time (mins): 75 (Chart review, PE, discussion with patient and family, discussion with case management) Thank you for the opportunity to participate in the care of Mr. Lopes. Attestation To help prompt me to consider important information that might be impacting today's encounter and assessment, information from prior notes written by myself or my colleagues may have been "brought forward" into today's note. My signature on this note, however, is an attestation that I personally performed the exam, history, and/or decision-making noted today, and, unless otherwise indicated, the interactions with patient, family, and staff as well as the review of records all occurred today. I also attest that the listed assessment and stated plan reflect my best clinical judgment today based on the combination of historical information, prior notes, and today's exam/ interactions. When time spent is documented, it refers only to time spent today by the signer, or if indicated, combined time spent today by collaborating physician/nurse practitioner. Chika Wells February 24, 2018 15:42
[2018-02-24] MEDS: PRAVASTATIN SOD 20 MG TAB PO SCH (21:07)
[2018-02-25] VITALS (9 sets, daily range): BP systolic 126–159; BP diastolic 71–82; PULSE 65–78; RESP 17–18; TEMP 97.4–98.5; O2SAT 93–96
[2018-02-25] MEDS: ISOSORBIDE MONONITRATE 30 MG CR TAB (IMDUR) PO SCH (06:47)
[2018-02-25] MEDS: INSULIN ASPART SUPPLEMENTAL SCALE SQ SCH ×3 (08:00→17:00)
[2018-02-25] MEDS: SODIUM CHLORIDE 0.9% FLUSH 10 ML FLUSH IV FLUSH SCH ×2 (09:00)
[2018-02-25] MEDS: REMOVE OLD PATCH T-DERMAL SCH (09:00)
[2018-02-25] MEDS: ASPIRIN 325 MG TAB PO SCH (09:18)
[2018-02-25] MEDS: amLODIPine BESYLATE 5 MG TAB PO SCH (09:18)
[2018-02-25] MEDS: CIPROFLOXACIN 250 MG TAB PO SCH (09:18)
[2018-02-25] MEDS: DOCUSATE SODIUM 50 MG/SENNA 8.6 MG TAB PO SCH (09:19)
[2018-02-25] MEDS: FERROUS SULFATE 325 MG (65 MG ELEMENTAL IRON) TAB PO SCH (09:19)
[2018-02-25] MEDS: CARVEDILOL 12.5 MG TAB PO SCH (09:19)
[2018-02-25] MEDS ORDERED: NICOTINE 7 MG/24 HR PATCH T-DERMAL SCH (12:00)
--- NOTE | 2018-02-25 13:20 | HHI.HCPN ---
Reason for visit a. To assist with evaluation and management of symptoms including: Weakness , dysphasia, anorexia, depression b. To assist medical decision maker(s) with: better understanding of current medical conditions; weighing benefits/burdens of medical treatment options; making medical treatment decisions. Subjective/Interval History Patient seen today follow-up on comfort, goals Stable. No new labs. No new imaging. Ate 50-100% of meals yesterday. Vital signs within normal limits. Afebrile. Patient seen in room, dual visit with Mare Gibson palliative care social insurance adviser. Adult children present with patient at bedside. He is alert, mostly oriented. Speech is very soft, limited. He is quiet, withdrawn as he was yesterday as well. Briefly review with him our discussion yesterday inquire if they have any additional questions. Patient and family expressed he wishes to continue to pursue rehabilitation in attempt to restore strength and improve his chances of moving back to [place] with his family. Endorses generalized feeling of discomfort in his abdomen, not exactly painful, not reflux, not cramping, something that he would drink milk for at home. Denies shortness of breath. Denies nausea. Endorses feeling tired, worked with physical therapy earlier today. Also indicates it is difficult to sleep at night due to hospital activity level. Does not like dietary restrictions 2/2 to dysphasia and speech therapy recommendations. Still with some oral discomfort with swallowing though upon exam white lesions appear resolved. All questions answered to the best of my ability, family asks about possible discharge to rehab timeframe, advised that when stable is medically possible, tolerating oral diet then would look at rehabilitation placement, this would also depend on accepting facility. This could possibly be within the next several days pending patient continue to remain stable/improved. Family will be returning back to [place] though remain available via telephone to continue to be involved with his care. Discussed with medical attending, discussed with case management. . Advance Directives Living Will: Copy in medical record Health Care Surrogate: Copy in medical record Advance Directive Specifics Health Care Surrogate(s): Designates 2 daughters Stephanie Wayne as healthcare surrogate. Documented care wishes: Documents in standard verbiage that in the presence of terminal or end-stage or vegetative condition would not want prolonged artificial measures . . Objective Vital Signs Date Time Temp Pulse Resp B/P (MAP) Pulse Ox O2 Delivery O2 Flow Rate FiO2 02/25/18 12:35 97.4 69 18 126/71 (89) 93 02/25/18 08:00 98.3 78 18 151/82 (105) 95 02/25/18 08:00 Room Air 02/25/18 07:54 76 02/25/18 04:00 02/25/18 04:00 70 02/25/18 00:00 98.5 70 17 154/81 (105) 95 02/25/18 00:00 71 02/24/18 20:23 21 02/24/18 20:00 Room Air 02/24/18 20:00 97.6 77 19 164/80 (108) 95 02/24/18 20:00 76 02/24/18 16:07 98.0 67 18 161/70 (100) 97 02/24/18 15:44 74 02/24/18 14:45 21 Intake & Output 02/25/18 02/25/18 07:00 19:00 Intake Total 960 ml Output Total 850 ml Balance 110 ml Intake Oral 120 ml IV Total 840 ml Output Urine Total 850 ml Physical Exam CONSTITUTIONAL/GENERAL: This is an adequately nourished elderly male, in no apparent distress. TUBES/LINES/DRAINS: Peripheral IV upper extremity, Zhang catheter, colostomy appliance NECK: Trachea midline. Supple, nontender. No palpable thyroid enlargement or nodularity. ENT: Oral mucosa moist, pink. White exudates/lesions observed yesterday and posterior oropharynx appear resolved today CARDIOVASCULAR: Regular rate and rhythm without murmur.No JVD. Peripheral pulses symmetric. RESPIRATORY/CHEST: Symmetric, unlabored respirations. On room air. Clear to auscultation. Breath sounds equal bilaterally. GASTROINTESTINAL: Abdomen soft, non-tender, nondistended. No hepato-splenomegaly , or palpable masses. No guarding. Bowel sounds present. Colostomy present right lower quadrant stoma pink. No drainage at this time. GENITOURINARY: Without palpable bladder distension. + Penile implant noted. Zhang catheter in place-cloudy yellow urine present. MUSCULOSKELETAL: Extremities without clubbing, cyanosis, or edema. No joint tenderness or effusion noted. No calf tenderness. No mottling or clubbing. NEUROLOGICAL: Awake and alert--oriented 2. Mild confusion. Quiet, flat. Some aphasia noted. Moving all 4 extremities. Follows commands. PSYCHIATRIC: Quiet, flat. . Diagnostic Tests Laboratory Laboratory Tests Test 02/23/18 06:55 White Blood Count 14.9 TH/MM3 (4.0-11.0) Red Blood Count 3.58 MIL/MM3 (4.50-5.90) Hemoglobin 11.1 GM/DL (13.0-17.0) Hematocrit 32.0 % (39.0-51.0) Mean Corpuscular Volume 89.2 FL (80.0-100.0) Mean Corpuscular Hemoglobin 31.0 PG (27.0-34.0) Mean Corpuscular Hemoglobin Concent 34.7 % (32.0-36.0) Red Cell Distribution Width 13.3 % (11.6-17.2) Platelet Count 123 TH/MM3 (150-450) Mean Platelet Volume 8.0 FL (7.0-11.0) Neutrophils (%) (Auto) 82.2 % (16.0-70.0) Lymphocytes (%) (Auto) 8.2 % (9.0-44.0) Monocytes (%) (Auto) 8.5 % (0.0-8.0) Eosinophils (%) (Auto) 0.8 % (0.0-4.0) Basophils (%) (Auto) 0.3 % (0.0-2.0) Neutrophils # (Auto) 12.2 TH/MM3 (1.8-7.7) Lymphocytes # (Auto) 1.2 TH/MM3 (1.0-4.8) Monocytes # (Auto) 1.3 TH/MM3 (0-0.9) Eosinophils # (Auto) 0.1 TH/MM3 (0-0.4) Basophils # (Auto) 0.0 TH/MM3 (0-0.2) CBC Comment DIFF FINAL Differential Comment Blood Urea Nitrogen 26 MG/DL (7-18) Creatinine 1.73 MG/DL (0.60-1.30) Random Glucose 113 MG/DL (74-106) Total Protein 8.1 GM/DL (6.4-8.2) Albumin 2.7 GM/DL (3.4-5.0) Calcium Level 8.7 MG/DL (8.5-10.1) Phosphorus Level 2.9 MG/DL (2.5-4.9) Magnesium Level 2.0 MG/DL (1.5-2.5) Alkaline Phosphatase 125 U/L (45-117) Aspartate Amino Transf (AST/SGOT) 19 U/L (15-37) Alanine Aminotransferase (ALT/SGPT) 21 U/L (12-78) Total Bilirubin 0.5 MG/DL (0.2-1.0) Sodium Level 143 MEQ/L (136-145) Potassium Level 3.8 MEQ/L (3.5-5.1) Chloride Level 111 MEQ/L (98-107) Carbon Dioxide Level 25.5 MEQ/L (21.0-32.0) Anion Gap 7 MEQ/L (5-15) Estimat Glomerular Filtration Rate 38 ML/MIN (>89) Result Diagram: 02/23/18 0655 02/23/1855 Microbiology Microbiology Date/Time Source Procedure Growth Status 02/16/18 20:35 Blood Peripheral Aerobic Blood Culture - Final NO GROWTH IN 5 DAYS Complete 02/16/18 20:35 Blood Peripheral Anaerobic Blood Culture - Final NO GROWTH IN 5 DAYS Complete 02/16/18 20:40 Urine Random Urine Urine Culture - Final Klebsiella Pneumoniae Providencia Stuartii Complete Imaging Last Impressions Carotid Artery Ultrasound 02/20/18 0000 Signed Impressions: Service Date/Time: Tuesday, February 20, 2018 15:25 - CONCLUSION: Mild carotid bulb plaque without significant stenosis seen. Kareem Hollins MD Brain MRI 02/20/18 0000 Signed Impressions: Service Date/Time: Tuesday, February 20, 2018 13:42 - CONCLUSION: 1. Numerous areas of abnormal signal on the diffusion weighted images of the periphery of the cerebral hemispheres, in the periventricular regions, and a linear focus of the left cerebellar hemisphere consistent with numerous small areas of acute infarction. 2. Abnormal signal in the SWI images likely related to prior areas of hemorrhage or potentially small areas of petechial hemorrhage. A large lauren hemorrhage with mass effect is not seen. Kareem Hollins MD Head CT 02/19/18 0000 Signed Impressions: Service Date/Time: Monday, February 19, 2018 18:49 - CONCLUSION: 1. Cerebral atrophy. 2. No acute intracranial abnormality. Peterson Dahl MD Chest X-Ray 02/16/182036 Signed Impressions: Service Date/Time: Friday, February 16, 2018 21:01 - CONCLUSION: No acute cardiopulmonary disease demonstrated. Kareem Galicia MD Lumbar Spine X-Ray 02/16/18 0000 Signed Impressions: Service Date/Time: Friday, February 16, 2018 22:10 - CONCLUSION: Mid and lower lumbar degenerative changes as above. No fracture or subluxation. Kareem Galicia MD Hip and Pelvis X-Ray 02/16/18 0000 Signed Impressions: Service Date/Time: Friday, February 16, 2018 22:08 - CONCLUSION: Normal radiographic appearance of the bony pelvis and right hip. Kareem Galicia MD Assessment and Plan Disease Oriented Problem List: (1) HTN (hypertension) (2) CKD (chronic kidney disease) stage 3, GFR 30-59 ml/min (3) History of bladder cancer (4) Hx Of Bladder Malignancy (5) UTI (urinary tract infection) (6) Weakness (7) Non-ST elevation UT (NSTEMI) (8) History of AAA (abdominal aortic aneurysm) repair Symptom Scale: (1) Anorexia 0-10 Scale: Unable to quantify (2) Dysphagia 0-10 Scale: Unable to quantify (3) Weakness 0-10 Scale: Unable to quantify Pertinent Non-Medical Issues Psychosocial:. Lived with a roommate. 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 Enjoys riding motorcycles. Originally from [place] though has lived in [place] since the . Supported by 3 daughters, one son who live in [place]. He usually spends his woodruff in [place] and fall/winter in [place]. Spiritual: Does not want cheese cooker visit at this time Legal:Patient with some mild confusion some aphasia status post CVA. May be able to participate some with decision that making though I would recommend shared decision making with his designated surrogate. He has healthcare surrogate designation naming his 2 daughters Tone, Stephanie as surrogates. Ethical issues impacting care: No ethical issues identified Important Contacts Tone Katz daughter [phone] Luis F- daughter- [phone] Prognosis This patient was admitted for weakness, failure to thrive. Positive findings of UTI, NSTEMI,and CVA per MRI imaging. He is continued to have some weakness and confusion as well as dysphasia. Possible he may rehabilitate and restore some strength, function. He does remain at risk for ongoing complications and further debility secondary to advanced age and multiple medical conditions. May be appropriate for hospice if goals comfort oriented. . Code Status: No Code Plan Legal decision maker:Patient with some mild confusion some aphasia status post CVA. May be able to participate some with decision that making though I would recommend shared decision making with his designated surrogate. He has healthcare surrogate designation naming his 2 daughters Stephanie Wayne as surrogates. Goals: Lengthy discussion with patient and family upon initial consultation . Patient though tearful expresses desire to continue with restorative and rehabilitative efforts to try to get him strong enough to move back to [place]. Today upon follow-up patient, supported by family continues to endorse desire to proceed with rehabilitative efforts and to work towards discharge and eventually moving back home with his family in [place]. CODE STATUS: DNR SYMPTOMS: --Dysphagia-speech therapy following-patient on modified diet. He indicates he does not like thickened or pured items. He has had a poor appetite in the weeks leading up to this hospitalization. May be at ongoing risk for aspiration secondary to CVA. Also complains of oropharyngeal pain, appears to have thrush. recommend oral nystatin swish/swallow Q 6 hr. 02/25/18 this appears to be improved upon exam today. --Anorexia--speech therapy following-patient on modified diet. He indicates he does not like thickened or pured items. He has had a poor appetite in the weeks leading up to this hospitalization. May be at ongoing risk for aspiration secondary to CVA. Also complains of oropharyngeal pain, appears to have thrush. --Depression-patient and family indicate he has been withdrawn, sad and does not really feel like trying to recover or rehabilitate. Some of this may be situational depression, on the other hand, even if depression is treated he will continue to have underlying chronic medical conditions as well as chronic debility secondary to. Could consider addition of SSRI for long-term help with depression. --Weakness-status post CVA,+ UTI. General decline and weakness over the past several weeks to month. Overall slower decline over the past 1 year, general debility. Will require ongoing aggressive PT, OT to maintain/restore function. --Tobacco craving--family requests nicotine patch be restarted as they feel withdrawal from smoking is contributing to his anxiety in the hospital setting Palliative care will continue to follow during hospital course as condition evolves, to assist patient/decision-maker with understanding of medical conditions, weighing benefits/burdens of treatment options, for clarification of goals of treatment. Additionally will assist with any symptoms of palliative concern Time Spent Total Floor Time (mins): 30 (Chart review, PE, discussion with family, discussion with case management, discussion with medical attending.) Attestation To help prompt me to consider important information that might be impacting today's encounter and assessment, information from prior notes written by myself or my colleagues may have been "brought forward" into today's note. My signature on this note, however, is an attestation that I personally performed the exam, history, and/or decision-making noted today, and, unless otherwise indicated, the interactions with patient, family, and staff as well as the review of records all occurred today. I also attest that the listed assessment and stated plan reflect my best clinical judgment today based on the combination of historical information, prior notes, and today's exam/ interactions. When time spent is documented, it refers only to time spent today by the signer, or if indicated, combined time spent today by collaborating physician/nurse practitioner. Chika Wells February 25, 2018 13:20
[2018-02-25] MEDS: NS + KCL 20 MEQ INJ 1,000 ML IV SCH (13:52)
--- NOTE | 2018-02-25 20:06 | PD.CONS ---
HPI Service Rehabilitation Medicine Consult Requested By Reason for Consult Comprehensive rehabilitation evaluation. Primary Care Physician Unknown Past Family Social History Allergies: Coded Allergies: penicillin G (Unverified Allergy, Severe, Swelling, 06/08/17) Exam I&O / VS 02/25/18 02/25/18 02/26/18 15:00 23:00 07:00 Intake Total 480 ml Output Total 800 ml Balance -320 ml Intake Oral 480 ml Output Urine Total 800 ml # Bowel Movements 0 Vital Signs Date Time Temp Pulse Resp B/P (MAP) Pulse Ox O2 Delivery O2 Flow Rate FiO2 02/25/18 17:56 96 21 02/25/18 16:09 65 02/25/18 16:00 98.2 70 18 159/77 (104) 96 02/25/18 16:00 Room Air 02/25/18 12:35 97.4 69 18 126/71 (89) 93 02/25/18 12:00 67 02/25/18 12:00 Room Air 02/25/18 08:00 98.3 78 18 151/82 (105) 95 02/25/18 08:00 Room Air 02/25/18 07:54 76 02/25/18 04:00 02/25/18 04:00 70 02/25/18 00:00 98.5 70 17 154/81 (105) 95 02/25/18 00:00 71 02/24/18 20:23 21 Respiratory: Lungs CTA, Non-labored respirations, BS equal, Symmetrical expansion Cardiovascular: Normal rate, No murmur, Regular Rhythm Musculoskeletal: ROM, Tenderness Genesis Rodriguez MD February 25, 2018 20:06
[2018-02-26] MEDS ORDERED: REMOVE OLD PATCH T-DERMAL SCH (09:00)
--- NOTE | 2018-02-26 09:49 | HHI.DS ---
Discharge Summary Admission Date Feb 16, 2018 at 22:38 Discharge Date: February 25, 2018 Admitting Diagnosis urosepsis, AMS, weakness (1) Sepsis ICD Code: A41.9 - Sepsis, unspecified organism (2) UTI (urinary tract infection) ICD Code: N39.0 - Urinary tract infection, site not specified Status: Acute Procedures EEG Brief History - From Admission 82-year-old male with a past medical history significant for coronary disease and hyperlipidemia was brought to the emergency department by his daughters for the evaluation of possible UTI. Patient's daughters are in [place] and arrived to move their father up to [place] to care for him. Upon arriving they found that he was weak and unable to ambulate on his own. He has had an increase in falls suffering from 2 falls in 24 hours. He has had approximately a one-week history of fever/chills and his daughters are concerned for a urinary tract infection. The patient has a suprapubic catheter from a history of bladder cancer. The patient's daughters report that he had altered mentation and confusion worsening over the past week. They state the symptoms are similar to a year ago when he was diagnosed with a urinary tract infection. The patient denies pain everywhere except his right hip. No chest pain or shortness of breath. No lateralizing signs/symptoms. No abdominal pain. No nausea/vomiting/diarrhea. CBC/BMP: 02/23/18 0655 02/23/18 0655 PE at Discharge GENERAL: This is a well-nourished, well-developed patient, in no apparent distress. However had multiple outbursts of crying, emotionally labile CARDIOVASCULAR: RRR, no gallops, or rubs. RESPIRATORY: Fair air entry bilaterally. No W, R, or R GASTROINTESTINAL: Abdomen soft, non-tender, nondistended. Positive bowel sounds MUSCULOSKELETAL: Extremities without clubbing, cyanosis, or edema. Pedal pulses appreciated NEUROLOGICAL: Awake and alert to place and person. Moves all extremity with significant muscle weakness in 4 extremity. Normal speech. Hospital Course 82 years old male admitted with sepsis secondary to UTI elevated troponin with history of coronary artery disease and chronic kidney disease hyperlipidemia and global deconditioning, encephalopathy, patient started on IV antibiotic, neuro check, MRI and neurology consult obtained, patient was found to have Klebsiella pneumonia UTI for which he was on Rocephin then Cipro, patient cleared by neurology however the family wanted to transfer patient on an emergency flight to [place], multiple and lengthy discussion has been done with the patient and his family eventually, palliative care consult obtained, eventually they decided on discharge [facility] [place] with possibility of getting hospice consult later on. [id number] encounter performed with the patient on discharge day, as well as physical exam, summary of hospitalization course and postdischarge plan has been D/W the patient. D/W nurse D/W renal case manager. Discharge medications reviewed and printed and signed, post discharge follow up visit with PCP and other specialist as well as Brief hospital course and discharge summary has been placed. Pt Condition on Discharge: Stable Discharge Disposition: Discharge to SNF Discharge Time: > 30 minutes Discharge Instructions DIET: Follow Instructions for: Pureed Diet Additional Diet Instructions: honey thickened Activities you can perform: See Additionl Instruction Other Activity Instructions: per PT Follow up Referrals: Cardiology - 1 Week PCP Follow-up - 2-3 Days SNF/[facility]/ with [facility] New Medications: Amlodipine (Norvasc) 5 Mg Tab 5 MG PO DAILY for Blood Pressure Management, #30 TAB Carvedilol (Coreg) 12.5 Mg Tab 12.5 MG PO BID for Regulate Heart Beat, #60 TAB Ciprofloxacin (Cipro) 250 Mg Tab 250 MG PO Q12HR for Infection, #18 TAB dc 5/9 Isosorbide Mononitrate ER (Isosorbide Mononitrate ER) 30 Mg Osmar 60 MG PO DAILY@0700 for Blood Pressure Management, #60 TAB Pravastatin (Pravachol) 20 Mg Tab 20 MG PO HS for Cholesterol Management, #30 TAB Continued Medications: Albuterol 18 GM Inh (Ventolin Hfa 18 GM Inh) 90 Mcg/Act Aer 2 PUFF INH Q4-6H PRN for SHORTNESS OF BREATH, #1 INHALER 0 Refills Aspirin (Tgt Aspirin) 81 Mg Chw 81 MG CHEW DAILY for Blood Clot Prevention, #30 EA Cholecalciferol (Vitamin D3) 1,000 Unit Tab 1000 UNITS PO ZMoWeFr for Nutritional Supplement, #1 BOTTLE 0 Refills Clopidogrel (Clopidogrel) 75 Mg Tab 75 MG PO DAILY for Blood Clot Prevention, #30 TAB 0 Refills Cyanocobalamin (Vitamin B-12) 1,000 Mcg Tab 1000 MCG PO DAILY for Nutritional Supplement, #1 BOTTLE 0 Refills Ferrous Sulfate (Ferrous Sulfate) 325 Mg (65 Mg Iron) Tablet 325 MG PO zMoWeFr for Nutritional Supplement, #90 TAB 0 Refills Folic Acid (Folic Acid) 0.4 Mg Tab 400 MCG PO zMoWeFr for Nutritional Supplement, TAB 0 Refills Nitroglycerin SL (Nitrostat SL) 0.4 Mg Subl 0.4 MG SL Q5M PRN for CHEST PAIN, #60 TAB Triamcinolone Topical (Triamcinolone Topical) 0.025 % Oint 1 APPLIC TOPICAL BID for Inflammation, GM 0 Refills Discontinued Medications: Pravastatin (Pravastatin) 20 Mg Tab 20 MG PO zMoWeFr for Cholesterol Management, #30 TAB 0 Refills Lisseth Roberson MD February 26, 2018 09:49
== END 2018-02-25 18:33 | DRG 871 ==
LOC: NEPE 18:31 → NEDA 22:38 → NEPFCDU 02-17 00:16 → N04B 02-18 21:45
PROVIDERS: ADMIT Hospitalist; ATTEND Hospitalist
DX: A41.9 Sepsis, unspecified organism (principal); G93.40 Encephalopathy, unspecified; I21.4 Non-ST elevation (NSTEMI) myocardial infarction; I63.40 Cerebral infarction due to embolism of unspecified cerebral artery; R13.10 Dysphagia, unspecified; N30.00 Acute cystitis without hematuria; R47.01 Aphasia; J44.9 Chronic obstructive pulmonary disease, unspecified; N18.3 Chronic kidney disease, stage 3 (moderate); F32.9 Major depressive disorder, single episode, unspecified; E78.5 Hyperlipidemia, unspecified; R63.0 Anorexia; I25.10 Atherosclerotic heart disease of native coronary artery without angina pectoris; B96.1 Klebsiella pneumoniae [K. pneumoniae] as the cause of diseases classified elsewhere; E87.6 Hypokalemia; F17.210 Nicotine dependence, cigarettes, uncomplicated; I12.9 Hypertensive chronic kidney disease with stage 1 through stage 4 chronic kidney disease, or unspecified chronic kidney disease; R47.02 Dysphasia; I25.2 Old myocardial infarction; I73.9 Peripheral vascular disease, unspecified; R62.7 Adult failure to thrive; R53.1 Weakness; W19.XXXA Unspecified fall, initial encounter; Z66 Do not resuscitate; Z79.02 Long term (current) use of antithrombotics/antiplatelets; Z88.0 Allergy status to penicillin; Z79.82 Long term (current) use of aspirin; Z93.59 Other cystostomy status; Z90.79 Acquired absence of other genital organ(s); Z85.51 Personal history of malignant neoplasm of bladder; Z79.899 Other long term (current) drug therapy; Z95.5 Presence of coronary angioplasty implant and graft; Z68.22 Body mass index [BMI] 22.0-22.9, adult; Z90.6 Acquired absence of other parts of urinary tract; Z86.79 Personal history of other diseases of the circulatory system
CPT/HCPCS: 70450; 70551; 71045; 72110; 73502; 80048; 80053; 80061; 81001; 82550; 82948; 83036; 83605; 83690; 83735; 84100; 84439; 84443; 84484; 85025; 85610; 85730; 87040; 87077; 87086; 87186; 93005; 93225; 93226; 93306; 93880; 94150; 94664; 96360; J0696; J0744; J1644; J1815; J3480; J7030; J7040